=== PATIENT | male | born 1955 | race Caucasian/White ===

== ENCOUNTER 2024-09-15 22:27 | Emergency (ER) | payer OTHER, MEDICAID, SELFPAY ==
[2024-09-15 22:33] VITALS: BP 124/65; PULSE 61; RESP 18; TEMP 36.7; O2SAT 97; BMI 25.0
--- NOTE | 2024-09-15 22:42 | PD.EDRME ---
Rapid Medical Screening Exam RME Arrival date/time: 09/15/24 22:27 Time Seen by Provider: 09/15/24 22:41 Vital signs: Vital Signs Temperature 98.1 F 09/15/24 22:33 Pulse Rate 61 09/15/24 22:33 Respiratory Rate 18 09/15/24 22:33 Blood Pressure 124/65 09/15/24 22:33 Pulse Oximetry (%) 97 09/15/24 22:33 Oxygen Delivery Method Room Air 09/15/24 22:33 Vital signs reviewed by provider: Yes RME Narrative: 68yo male with pmhx DM, HTN, aFib BIBA from [facility] presents to the ED for a chief complaint of bilateral eye pain x 2 days. Patient states his pain progressively gets worse throughout the day. Per EMS, patient has been taking Tylenol and Tramadol without any alleviation of symptoms, so he came in for evaluation. Patient reports associated blurry vision.
[2024-09-15 22:43] VITALS: PULSE 82; RESP 18; O2SAT 98
--- NOTE | 2024-09-15 22:43 | XR_ITS ---
Examination: CT brain head without contrast. 2-D sagittal coronal reconstructions Date and time of exam:September 15, 2024 11:19 PM Indications: Head pain eye pain several months worse the last couple days CTDI: vol (mGy):56.8 DLP: (mGycm):1141 Technique: Multiple CT axial sections of the brain have been obtained, 5 mm slice thickness. Contrast has not been administered. 2-D sagittal, coronal reconstructions have been obtained Low dose protocols were performed. One or more of the following dose reduction techniques were used; automated exposure control, adjustment of the mA and/or KV according to patient size, use of iterative reconstruction technique. Findings: No significant ventricular enlargement. 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 No mass effect or midline shift Basal cisterns are not remarkable. Fourth ventricle is midline. Cranial vault intact. Mild chronic ethmoid sinusitis Impression: Negative for acute hemorrhage, mass effect or midline shift If symptoms persist, consider brain MRI follow-up
[2024-09-15 23:57] LABS: Basophils % (Auto) 0 % (0-2.5); Eosinophils # (Auto) 0.1 Thou/mm3 (0.0-0.5); Eosinophils % (Auto) 1 % (0-10); Hematocrit 36.7 % (41.0-53.0); Hemoglobin 12.5 g/dL (13.5-16.0); Immature Granulocytes % (Auto) 0 % (0-0); Immature Granulocytes Auto 0.01 Thou/mm3 (0.00-0.00); Lymphocytes # (Auto) 1.5 Thou/mm3 (1.0-4.8); Lymphocytes % (Auto) 26 % (10-50); Mean Corpuscular HGB Conc 34.1 g/dl (31.0-37.0); Mean Corpuscular Hemoglobin 29.3 pg (25.0-35.0); Mean Corpuscular Volume 86 fL (80-100); Monocytes # (Auto) 0.4 Thou/mm3 (0.0-0.8); Monocytes % (Auto) 7 % (0-12); Neutrophils # (Auto) 3.7 Thou/mm3 (1.8-7.7); Neutrophils % (Auto) 66 % (37-80); Nucleated Red Blood Cell % 0 /100 WBC (0); Platelet Count 117 Thou/mm3 (140-440); RDW Standard Deviation 42.9 fL (35.1-43.9); Red Blood Count 4.27 Miln/mm3 (4.50-5.90); White Blood Count 5.7 Thou/mm3 (3.8-10.6)
[2024-09-16 00:12] LABS: Sed Rate (ESR) 8 mm/hr (0-20)
[2024-09-16 00:34] LABS: Alanine Aminotransferase 20 U/L (10-49); Albumin, Serum 4.4 gm/dL (3.4-4.8); Albumin/Globulin Ratio 2.3 (1.2-2.2); Alkaline Phosphatase 85 U/L (46-116); Anion Gap 7 (7-16); Aspartate Amino Transferase 16 U/L (0-34); BUN/Creatinine Ratio 20 Ratio (12-20); Blood Urea Nitrogen 20 mg/dL (9-23); C-Reactive Protein < 0.4 mg/dL (0.0-0.9); Calcium 9.5 mg/dL (8.3-10.6); Calcium (Corrected) 9.5 mg/dL (8.5-10.1); Carbon Dioxide 29.5 mMol/L (20.0-31.0); Chloride 107 mMol/L (98-107); Estimated Creatinine Clearance 76.5 mL/min (>60); Globulin 1.9 gm/dL (2.3-3.5); Glucose 203 mg/dL (74-106); Osmolality,Calculated 293 (275-295); Potassium 3.7 mMol/L (3.4-5.1); Sodium 143 mMol/L (136-145); Total Protein 6.3 gm/dL (5.7-8.2); eGFR > 60 See Note
[2024-09-16 04:17] VITALS: BP 142/63; PULSE 69; RESP 16; O2SAT 96
--- NOTE | 2024-09-16 04:27 | PD.EDADULT ---
ED General RME/HPI General Chief complaint: Eye Problems Stated complaint: EYE PAIN Time Seen by Provider: 09/15/24 22:41 Arrival date/time: 09/15/24 22:27 Limitations: no limitations RME / HPI RME / HPI narrative: Dr. Darden's Main ED Evaluation: 68yo male with pmhx DM, HTN, aFib BIBA from [facility] presents to the ED for a chief complaint of bilateral eye pain that radiates down his cheeks x 2 days. Patient states his eye pain has been going on for the last 2 months, but has progressively gotten worse throughout the day. Per EMS, patient has been taking Tylenol and Tramadol without any alleviation of symptoms, so he came in for evaluation. Patient reports associated blurry vision. He denies any dizziness, lightheadedness or any other associated symptoms. Patient notes he has tried a few different types of prescription eye drops without any alleviation of symptoms. Patient is nearsighted and wears glasses. He has been dilated and cleared by optomology for diabetic-related changes. Related Data Previous Rx's ?Medication ?Instructions ?Recorded ketorolac 0.5 % eye drops 1 drp ophthalmic (eye) QID 2 weeks 09/16/24 #10 mL naphazoline 0.025 %-pheniramine 1 drp ophthalmic (eye) QID PRN eye 09/16/24 0.3 % eye drops (Naphcon-A) irritation #15 mL Allergies Allergy/AdvReac Type Severity Reaction Status Date / Time Iodinated Contrast Media Allergy Verified 04/10/23 13:59 morphine Allergy Verified 04/10/23 13:59 nifedipine Allergy Verified 04/10/23 13:59 Review of Systems Review of Systems Systems Reviewed: All systems reviewed, normal except as documented Past Medical History Past Medical History CARDIAC: Positive Hypertension; Negative Congestive Heart Failure RESPIRATORY: Negative Chronic Obstructive Pulmonary Disease (COPD) GENITOURINARY: Negative Renal Disease ENDOCRINE: Positive Diabetes Mellitus Type 2; Negative Diabetes Mellitus Type 1 Social History SMOKING STATUS: Never smoker ED Exam Narrative Physical exam: Eye: Visual acuity: Right eye 20/50, Left eye 20/40, and both 20/40. Peripheral olmedo intact. Lids intact without laceration, but small debris is noted to the eyelashes bilaterally. Lacrimal system without edema. No proptosis. No consensual photophobia. Extraocular movements intact and pupils equally round and reactive to light. No conjunctival icterus but with diffuse injection. No subconjunctival hemorrhage. No discharge. No hyphema. No corneal abrasions. No Sidel sign. General Limitations: Present no limitations General appearance: Present alert and in no apparent distress Head Head exam: Present atraumatic and other (scaly dandruff on the top of his skull) Eye Eye exam: Present PERRL, EOMI, conjunctival injection and other (constant eyelash irritation, burning eyelids, persistent itchy eyes) ENT ENT exam: Present normal exam, normal oropharynx and mucous membranes moist Neck Neck exam: Present normal inspection, full ROM and trachea midline Chest Chest inspection: Present normal inspection and symmetric chest wall rise Respiratory Respiratory exam: Present normal lung sounds bilaterally Cardiovascular Cardiovascular exam: Present regular rate, normal rhythm and normal heart sounds Abdominal Exam Abdominal exam: Present soft and normal bowel sounds Extremities Exam Extremities exam: Present normal inspection and full ROM Back Exam Back exam: Present normal inspection and full ROM Neurological Exam Neurological exam: Present alert, oriented X3 and CN II-XII intact Psychiatric Psychiatric exam: Present normal affect and normal mood Skin Skin exam: Present warm, dry, intact and normal color Course Quality Measures none Orders Category Date Time Status IV [Insert IV] STAT Care 09/15/24 22:[address] head/brain wo con Stat Exams 09/15/24 22:43 Completed CBC Stat Lab 09/15/24 23:03 Completed CMP [Comprehensive Metabolic Panel] Stat Lab 09/15/24 23:03 Completed CRP [C-Reactive Protein] Stat Lab 09/15/24 23:03 Completed ESR [Sed Rate (ESR)] Stat Lab 09/15/24 23:03 Completed Fluorescein Sodium [Zwzni-N-Graqm] Med 09/16/24 04:57 Discontinued 1 mg BOTH EYES X1 ONE Ketorolac Op [place]il[place] 0.5% [Acular Op Adilene 0.5%] Med 09/16/24 05:28 Discontinued 1 drop BOTH EYES X1 ONE lorataDINE [Claritin] Med 09/16/24 05:38 Discontinued 10 mg PO X1 ONE Vital Signs Vital signs: Vital Signs Temperature 98.1 F 09/15/24 22:33 Pulse Rate 61 09/15/24 22:33 Respiratory Rate 18 09/15/24 22:33 Blood Pressure 124/65 09/15/24 22:33 Pulse Oximetry (%) 97 09/15/24 22:33 Oxygen Delivery Method Room Air 09/15/24 22:33 Pulse ox is 97% on room air, which is normal according to my interpretation. [facility] Patient data External records reviewed:: [facility] previous records (Per chart review, patient has no relevant previous ED visits or admissions to this facility.) Clinical information provided by:: patient Social determinants that could affect healthcare access:: none Patient has the following chronic illnesses:: HTN, DM How is presenting disease/condition affected by chronic disease/condition?: uneffected by Evaluation data The following diagnostics were reviewed and interpreted by me:: lab results and radiology exam(s) Lab and/or radiology exams considered but not ordered:: none Interpretation Summary: CBC is normal, Glucose is elevated at 203, CRP is normal, Sed Rate is normal, UA shows 1+ protein and 2+ glucose, according to my interpretation. ---- I have personally reviewed the radiology data and agree with the radiologist's interpretation below: [facility] Report Signed Patient: MONY GARCIA [facility] Record#: [id number] Birthdate: 1955 Age/Sex: 68 / M Location: [facility] Attending Dr: Ordering Physician: Nilsa Freitas MD Date of Service: 09/15/24 Procedure(s): CT head/brain wo con Accession Number(s): [id number] cc: Rudy Vargas MD; Nilsa Freitas MD~ Examination: CT brain head without contrast. 2-D sagittal coronal reconstructions Date and time of exam:September 15, 2024 11:19 PM Indications: Head pain eye pain several months worse the last couple days CTDI: vol (mGy):56.8 DLP: (mGycm):1141 Technique: Multiple CT axial sections of the brain have been obtained, 5 mm slice thickness. Contrast has not been administered. 2-D sagittal, coronal reconstructions have been obtained Low dose protocols were performed. One or more of the following dose reduction techniques were used; automated exposure control, adjustment of the mA and/or KV according to patient size, use of iterative reconstruction technique. Findings: No significant ventricular enlargement. 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 No mass effect or midline shift Basal cisterns are not remarkable. Fourth ventricle is midline. Cranial vault intact. Mild chronic ethmoid sinusitis Impression: Negative for acute hemorrhage, mass effect or midline shift If symptoms persist, consider brain MRI follow-up Dictated By: Rudy Vargas MD Signed By: <Electronically signed by Rudy Vargas MD in OV> 09/15/24 7059 Medications Medications considered but not ordered:: none Medication administrations:: Medication Administration History Discontinued Medications Fluorescein Sodium (Fluorescein Sod 1 Mg Strp) 1 mg BOTH EYES X1 ONE Stop: 09/16/24 04:58 Last Admin: 09/16/24 05:13 Dose: 1 mg Documented By: RH Ketorolac Tromethamine (Ketorolac Op Adilene 0.5% 5 Ml Btl) 1 drop BOTH EYES X1 ONE Stop: 09/16/24 05:29 Last Admin: 09/16/24 05:37 Dose: Not Given Documented By: RH Non-Admin Reason: Medication Not Available Loratadine (Loratadine 10 Mg Tablet) 10 mg PO X1 ONE Stop: 09/16/24 05:39 Last Admin: 09/16/24 06:01 Dose: 10 mg Documented By: RH see above, if any Consultations Consultation(s) initiated? (list below): No Diagnosis Differential Diagnosis ED Complaint MDM: allergic conjunctivitis, keratoconjunctivitis, glaucoma, foreign body Most likely diagnosis given after review of the tests above:: Other DDx: brain tumor Final Dx: see below Admission Indicated Admission indicated?: not indicated Explain why admission is indicated or not indicated:: Admission criteria not met. Admission Request Was there a request for admission?: No Disposition Plan Disposition Plan: Discharge Discharge Attestation Discharge Attestation: The patient and all family members were given an opportunity to ask questions and understood the discharge instructions. Discharge instructions specifically effects, indications for sooner follow up or return to the emergency department, and the expected course of current diagnosis. Patient condition: Stable Medical Decision Making Differential Diagnosis Differential Diagnosis: allergic conjunctivitis, keratoconjunctivitis, glaucoma, foreign body Lab Data 09/15/24 23:03 09/15/24 23:03 Labs: Lab Results 09/15/24 Range/Units 23:03 WBC 5.7 (3.8-10.6) Thou/mm3 RBC 4.27 L (4.50-5.90) Miln/mm3 Hgb 12.5 L (13.5-16.0) g/dL Hct 36.7 L (41.0-53.0) % MCV 86 (80-100) fL MCH 29.3 (25.0-35.0) pg MCHC 34.1 (31.0-37.0) g/dl RDW Std Deviation 42.9 (35.1-43.9) fL Plt Count 117 L (140-440) Thou/mm3 Neut % (Auto) 66 (37-80) % Lymph % (Auto) 26 (10-50) % [place] % (Auto) 7 (0-12) % Eos % (Auto) 1 (0-10) % Baso % (Auto) 0 (0-2.5) % Neut # (Auto) 3.7 (1.8-7.7) Thou/mm3 Lymph # (Auto) 1.5 (1.0-4.8) Thou/mm3 [place] # (Auto) 0.4 (0.0-0.8) Thou/mm3 Eos # (Auto) 0.1 (0.0-0.5) Thou/mm3 Baso # (Auto) 0.0 (0.0-0.2) Thou/mm3 Immature Gran # (Auto) 0.01 H (0.00-0.00) Thou/mm3 Absolute Nucleated RBC 0.00 (0.00-0.00) Thou/mm3 Immature Gran % 0 (0-0) % Nucleated RBC % 0 (0) /100 WBC ESR 8 (0-20) mm/hr Sodium 143 (136-145) mMol/L Potassium 3.7 (3.4-5.1) mMol/L Chloride 107 (98-107) mMol/L Carbon Dioxide 29.5 (20.0-31.0) mMol/L Anion Gap 7 (7-16) BUN 20 (9-23) mg/dL Creatinine 1.0 (0.6-1.3) mg/dL Estim Creat Clear Calc 76.5 (>60) mL/min eGFR > 60 (60 - ) See Note BUN/Creatinine Ratio 20 (12-20) Ratio Glucose 203 H (74-106) mg/dL Calculated Osmolality 293 (275-295) Calcium 9.5 (8.3-10.6) mg/dL Corrected Calcium 9.5 (8.5-10.1) mg/dL Total Bilirubin 1.0 (0.3-1.2) mg/dL AST 16 (0-34) U/L ALT 20 (10-49) U/L Alkaline Phosphatase 85 (46-116) U/L C-Reactive Prot, Quant < 0.4 (0.0-0.9) mg/dL Total Protein 6.3 (5.7-8.2) gm/dL Albumin 4.4 (3.4-4.8) gm/dL Globulin 1.9 L (2.3-3.5) gm/dL Albumin/Globulin Ratio 2.3 H (1.2-2.2) Discharge Plan Plan Patient Disposition: HOME (Self Care) Patient condition on transfer: Stable Prescriptions/Referrals Prescriptions/Med Rec: New ketorolac 0.5 % drops 1 drp ophthalmic (eye) QID 14 Days Qty: 10 1RF Naphcon-A 0.025-0.3 % drops 1 drp ophthalmic (eye) QID PRN (Reason: eye irritation) Qty: 15 0RF Referrals: Ally Oreilly MD [Primary Care Provider] - In 1 week Problem List Clinical Impression: Dry eye syndrome Patient/Caregiver Discharge Instructions Education Materials: Treating Dry Eyes Additional Instructions: Please do not rub their eyes, because rubbing can cause mechanical mast cell degranulation and worsening of symptoms. ?Cool compresses can help reduce eyelid swelling ?Frequent use of refrigerated artificial tears throughout the day can also help to dilute and remove allergens ? Use head and shoulders shampoo to help with the dandruff. It is likely falling onto your eyelids. Return to the emergency department if you have any change in vision, worsening pain, or any other concerns. Print Language: Hungarian Stand Alone Forms: [employer]ra Award Info., Patient Portal Info Letter
[2024-09-16] MEDS: FLUORESCEIN SOD 1 MG STRP BOTH EYES (05:13)
[2024-09-16 05:30] VITALS: BP 138/74; PULSE 68; RESP 16; O2SAT 95
[2024-09-16] MEDS: lorataDINE 10 MG TABLET PO (06:01)
== END 2024-09-16 06:30 | disposition home or self-care (01) ==
PROVIDERS: Emergency Provider Emergency Medicine; PCP Hospitalist
DX: H04.123 Dry eye syndrome of bilateral lacrimal glands (principal)
CPT/HCPCS: 36415; 70450; 80053; 85025; 85652; 86140; 99284; A9270

== ENCOUNTER 2025-09-18 11:40 | Emergency (ER) | payer OTHER, MEDICAID, SELFPAY ==
--- NOTE | 2025-09-18 11:44 | EKG_ITS ---
[facility] (Former[facility]) Test Date: 2025-09-18 Pat Name: MONY GARCIA Department: Room: - Gender: Male [employer]: : 1955 Requested By: Stevenson Haile Order Number: [id number] Reading MD: Stevenson Haile Measurements Intervals [place] Rate: 59 P: 71 ID: [id number] QRS: 64 QRSD: 117 T: 64 QT: 387 QTc: 383 Interpretive Statements SINUS BRADYCARDIA WITH OCCASIONAL VENTRICULAR PREMATURE COMPLEXES MODERATE INTRAVENTRICULAR CONDUCTION DELAY [110+ ms QRS DURATION] NONSPECIFIC T-WAVE ABNORMALITY No previous ECG available for comparison /store/S0/[id number]/ecg/[id number].pdf
--- NOTE | 2025-09-18 11:45 | XR_ITS ---
AP portable upright chest film from 09/18/2025 at 12:16 p.m. CLINICAL INDICATION: Shortness of breath today FINDINGS: There is mild dilatation of the cardiac shadow but this is related to a suboptimal inspiration by the patient. The actual heart size is felt to be probably normal, no lymphadenopathy or abnormalities are seen in the hilar regions. Considering the suboptimal inspiration, I believe that both lungs are clear normal and there is no pleural fluid. There is very mild prominence of the pulmonary vascularity in the right upper lung zone, my feeling it is that this is almost certainly related to the suboptimal inspiration, but if there are any abnormal findings on pulmonary auscultation over the right upper lobe, then a chest CT might be of further value The bony thorax appears unremarkable. There are surgical clips seen in the gallbladder fossa in the right upper abdominal quadrant. IMPRESSION: 1. Suboptimal inspiration with high position of the diaphragm. 2. There is exceedingly minimal possible prominence of the pulmonary vascularity in the upper half of the right lung. There also is a suggestion of a few minimally prominent Melo B lines along the lateral margin of the right upper lobe. Careful clinical evaluation of the right upper lobe is recommended. A chest CT would afford much better visualization of this area if any abnormalities are heard on pulmonary auscultation. In all other respects both lungs and pleural space are clear normal.
[2025-09-18 12:02] VITALS: BP 151/63; PULSE 60; RESP 15; TEMP 35.9; O2SAT 95
--- NOTE | 2025-09-18 12:05 | EDNOTE_ITS ---
ED General RME/HPI General Chief complaint: Altered Mental Status Stated complaint: AMS Time Seen by Provider: 09/18/25 11:43 Arrival date/time: 09/18/25 11:40 Related Data Previous Rx's ?Medication ?Instructions ?Recorded ketorolac 0.5 % eye drops 1 drp ophthalmic (eye) QID 2 weeks 09/16/24 #10 mL naphazoline 0.025 %-pheniramine 1 drp ophthalmic (eye) QID PRN eye 09/16/24 0.3 % eye drops (Naphcon-A) irritation #15 mL Allergies Allergy/AdvReac Type Severity Reaction Status Date / Time Iodinated Contrast Media Allergy Verified 04/10/23 13:59 morphine Allergy Verified 04/10/23 13:59 nifedipine Allergy Verified 04/10/23 13:59 ED Exam Narrative Physical exam: Physical Exam: GENERAL: Awake, answering questions appropriately, appears stated age, somnolence and falls asleep in rapid succession HEENT: NC/AT. Moist mucosa. PERRLA/EOMI. CARDIO: Bradycardic but regular rhythm, no obvious murmurs, no JVD. PULM: No coughing or visible SOB. Lungs CTA B/L. GI: Abdomen soft, NT/ND, +BS. SKIN/MSK/EXT: No wounds/discoloration/rashes/edema/amputations. +Pedal pulses present B/L. NEURO: Oriented x3, Moves extremities x4, no focal neurologic deficits noted, cranial nerves II to XII grossly intact, [id number] normal, no pronator drift noted, rapid alternating movements intact, muscle strength 4 out of 5 in both upper and lower extremities without any asymmetry noted. Course Quality Measures none Orders Category Date Time Status Bedside Blood Glucose NOW Care 09/18/25 11:51 Active EKG (ED ONLY) *Do not use* NOW Care 09/18/25 11:44 Completed Insert IV NOW Care 09/18/25 11:44 Active CXRP [XR chest 1V portable] Stat Exams 09/18/25 11:45 Completed EKG (ED Only) Stat Exams 09/18/25 11:44 Draft US liver Stat Exams 09/18/25 12:54 Completed BNP [B-Type Natriuretic Peptide] Stat Lab 09/18/25 12:10 Completed CBC Stat Lab 09/18/25 12:10 Completed CMP [Comprehensive Metabolic Panel] Stat Lab 09/18/25 12:10 Completed Free T4 (Free Thyroxine) Stat Lab 09/18/25 12:10 Completed Lactate (Lactic Acid) Stat Lab 09/18/25 12:10 Completed Mag [Magnesium] Stat Lab 09/18/25 12:10 Completed TSH [Thyroid Stimulating Hormone] Stat Lab 09/18/25 12:10 Completed Troponin I Stat Lab 09/18/25 12:10 Completed Ringers Lactated 1000 ml [Lactated Ringers] 1,000 ml Med 09/18/25 13:31 Active IV 200 mls/hr Oxygen Delivery NOW RT 09/18/25 11:45 Active Vital Signs Vital signs: Vital Signs Temperature 96.7 F L 09/18/25 12:02 Pulse Rate 60 09/18/25 12:02 Respiratory Rate 15 09/18/25 12:02 Blood Pressure 151/63 H 09/18/25 12:02 Pulse Oximetry (%) 95 09/18/25 12:02 Oxygen Delivery Method Room Air 09/18/25 12:02 Discharge Plan Plan Patient Disposition: HOME (Self Care) Discharge Disposition comment: Stop taking metoprolol succinate 100mg by mouth twice a day Follow-up with Dr. Joshua (cardiology) within 5 days and ask him to change your medications If your symptoms worsen or if you develop new or worsening dizziness, chest pain, shortness of breath or confusion - come back to the ED immediately. Patient condition on transfer: Stable Prescriptions/Referrals Prescriptions/Med Rec: Discontinued metoprolol succinate 100 mg tablet extended release 24 hr 100 mg PO BID No Action ketorolac 0.5 % drops 1 drp ophthalmic (eye) QID 14 Days Qty: 10 1RF Naphcon-A 0.025-0.3 % drops 1 drp ophthalmic (eye) QID PRN (Reason: eye irritation) Qty: 15 0RF Problem List Clinical Impression: Polypharmacy Patient/Caregiver Discharge Instructions Discharge Activity: resume usual activities Additional Instructions: Stop taking metoprolol succinate 100mg by mouth twice a day Follow-up with Dr. Joshua (cardiology) within 5 days and ask him to change your m edications If your symptoms worsen or if you develop new or worsening dizziness, chest pain, shortness of breath or confusion - come back to the ED immediately. Print Language: Bangladeshi Stand Alone Forms: Omayra Award Info., Patient Portal Info Letter MDM Narrative MDM hospital course (for use when minimal MDM required): HPI: 69-year-old male with past medical history of insomnia, hypertension, coronary artery disease status post stent placement, paroxysmal A-fib, type 2 diabetes on hospice presenting to the ED on 09/18 after being noted to be more somnolent than usual with a heart rate less than 40 per nursing staff at [facility]. EMS on route notes that the patient vitals are stable other than bradycardia at which point atropine 1 mg was given with improvement of the heart rate from low 40s to mid 60s. Patient states that has been at [facility] for about 2 years and does not have any family in the area. He is usually at his baseline able to talk without any concerns. Patient's strength and conditioning coach is Dr. Joshua in [place] who apparently started him on metoprolol succinate 100 mg twice a day because of his coronary artery disease. On examination please refer to the physical exam above; patient presented mildly hypertensive 151/63 heart rate fluctuating between 40s to 60s, respiratory rate of 15, mildly hypothermic with a core temp of 96.7 which has improved to 97.7, saturating 95 on room air. Laboratory findings included no leukocytosis, normocytic anemia likely secondary to anemia of chronic disease, CMP shows hyponatremia and hypochloremia, lactic acid of 1.1, total bilirubin 1.5, AST of 38, troponin 0.035, BNP 171. Chest x-ray showed some pulmonary vascularity in the right upper lung, EKG showed sinus bradycardia with occasional PVCs and liver ultrasound was largely unremarkable other than some mild MASLD, bile duct was of normal size without any stones visualized. #Polypharmacy #Beta-shahla induced bradycardia As noted in HPI, patient's apparently received 100 mg of metoprolol succinate last evening and received 100 mg metoprolol succinate this morning Patient was given atropine 1 mg x 1 with improvement in heart rates in the 60s; patient is sleeping and heart rate is 47 but when awoken patient's heart rate spikes up to mid 50s. Patient's neurologic exam is largely unremarkable and he is able to answer all questions appropriately Plan: Will stop metoprolol succinate on discharge Advised patient to follow-up with Dr. Joshua his strength and conditioning coach within 5 days for medication reconciliation Patient seen and assessed with attending Dr. Antonio Haile, DO PGY-2 Internal Medicine - [facility] Medication Administration(s) Medication Administration History Lactated Ringer's (Lactated Ringers) 1,000 mls @ 200 mls/hr IV .Q5H ONE Stop: 09/18/25 18:30 Last Admin: 09/18/25 13:54 Dose: 200 mls/hr Documented By: ARF
[2025-09-18 12:25] LABS: Lactate (Lactic Acid) 1.1 mMol/L (0.4-2.0)
[2025-09-18 12:30] LABS: Basophils # (Auto) 0.0 Thou/mm3 (0.0-0.2); Basophils % (Auto) 0 % (0-2.5); Eosinophils # (Auto) 0.1 Thou/mm3 (0.0-0.5); Eosinophils % (Auto) 2 % (0-10); Hematocrit 33.6 % (41.0-53.0); Hemoglobin 10.8 g/dL (13.5-16.0); Immature Granulocytes Auto 0.01 Thou/mm3 (0.00-0.00); Lymphocytes # (Auto) 0.8 Thou/mm3 (1.0-4.8); Lymphocytes % (Auto) 18 % (10-50); Mean Corpuscular HGB Conc 32.1 g/dl (31.0-37.0); Mean Corpuscular Hemoglobin 27.6 pg (25.0-35.0); Mean Corpuscular Volume 86 fL (80-100); Monocytes # (Auto) 0.3 Thou/mm3 (0.0-0.8); Monocytes % (Auto) 7 % (0-12); Neutrophils # (Auto) 3.3 Thou/mm3 (1.8-7.7); Neutrophils % (Auto) 73 % (37-80); Nucleated Red Blood Cell # 0.00 Thou/mm3 (0.00-0.00); Nucleated Red Blood Cell % 0 /100 WBC (0); Platelet Count 97 Thou/mm3 (140-440); RDW Standard Deviation 45.2 fL (35.1-43.9); Red Blood Count 3.91 Miln/mm3 (4.50-5.90); White Blood Count 4.5 Thou/mm3 (3.8-10.6)
[2025-09-18 12:49] LABS: Alanine Aminotransferase 19 U/L (10-49); Albumin, Serum 3.8 gm/dL (3.4-4.8); Albumin/Globulin Ratio 1.7 (1.2-2.2); Alkaline Phosphatase 77 U/L (46-116); Anion Gap 11 (7-16); Aspartate Amino Transferase 38 U/L (0-34); BUN/Creatinine Ratio 30 Ratio (12-20); Bilirubin,Total 1.5 mg/dL (0.3-1.2); Blood Urea Nitrogen 30 mg/dL (9-23); Calcium 8.7 mg/dL (8.3-10.6); Calcium (Corrected) 8.9 mg/dL (8.5-10.1); Carbon Dioxide 26.3 mMol/L (20.0-31.0); Chloride 110 mMol/L (98-107); Creatinine (Component) 1.0 mg/dL (0.6-1.3); Globulin 2.2 gm/dL (2.3-3.5); Glucose 294 mg/dL (74-106); Magnesium 1.9 mg/dL (1.6-2.6); Osmolality,Calculated 309 (275-295); Potassium 3.7 mMol/L (3.4-5.1); Sodium 147 mMol/L (136-145); Thyroid Stimulating Hormone 0.50 uIU/mL (0.55-4.78); Total Protein 6.0 gm/dL (5.7-8.2); Troponin I 0.035 ng/mL (0.0-0.045); eGFR > 60 See Note
--- NOTE | 2025-09-18 12:54 | XR_ITS ---
Examination: Abdomen sonogram, Limited Date and time of exam: 09/18/2025 at 1:19 p.m. Clinical indications: Abnormal elevated bilirubin Technique: Real-time ponce scale transabdominal sonographic images of the upper abdomen obtained. Findings: The size of the liver is felt to be normal the intrahepatic bile ducts appear normal maximum diameter of the common bile duct 0.46 cm the size and the directional color flow in the portal vein is normal, the diameter of the portal vein is 0.84 cm. Patient appears to be status post cholecystectomy no focal lesions are seen anywhere in the liver There is diffuse increased echogenicity noted uniformly throughout both lobes of the liver consistent with fatty infiltration no ascites is seen. No abnormalities are seen in the region of the head or body of the pancreas. Pancreas is not actually visualized very well. I went back to the ultrasound department to observe real-time imaging of a 15 cm echogenic rounded area of density seen on sagittal images, and with the technologist rotating the transducer and different imaging planes, this proves to be represent the stomach. No abnormal mass lesion is felt to be present here. Visualization of the upper half of the right kidney does not show any abnormalities. IMPRESSION: 1. The liver is normal in size, no focal lesions are seen anywhere within the liver. 2. There is diffuse increased echogenicity indicative of diffuse prominent fatty infiltration of the liver #3. The size and appearance of the common bile duct and portal vein are normal and there is normal directional color flow. 3. The gallbladder is not visualized, patient is felt to be status post cholecystectomy
[2025-09-18 13:22] VITALS: BP 110/54; PULSE 50; RESP 15; TEMP 36.1; O2SAT 90; O2SAT 95
[2025-09-18 13:24] LABS: Free T4 (Free Thyroxine) 0.81 ng/dL (0.89-1.76)
[2025-09-18 13:25] LABS: B-Type Natriuretic Peptide 171 pg/mL (0-100)
[2025-09-18] MEDS: RINGERS LACTATED 1000 ML 1,000 ML 200 ML IV (13:54)
[2025-09-18 15:42] VITALS: BP 128/59; PULSE 49; RESP 17; TEMP 36.5; O2SAT 97
--- NOTE | 2025-09-18 18:54 | PC.NURSE ---
pt belongings were placed in locker #4
== END 2025-09-18 18:57 | disposition home or self-care (01) ==
DX: R41.82 Altered mental status, unspecified (principal); R06.02 Shortness of breath; R00.1 Bradycardia, unspecified; I10 Essential (primary) hypertension
CPT/HCPCS: 36415; 71045; 76705; 80053; 83605; 83735; 83880; 84439; 84443; 84484; 85025; 93005; 99283; J7120

== ENCOUNTER 2025-09-24 08:58 | Inpatient (IN) | payer MEDICARE, MEDICAID, SELFPAY ==
[2025-09-24] VITALS (49 sets, daily range): BP systolic 99–213; BP diastolic 46–99; PULSE 77–110; RESP 7–29; TEMP 38.4–40.5; O2SAT 85–108; BMI 29.8
--- NOTE | 2025-09-24 08:59 | PD.EDFEVER ---
ED Fever RME/HPI General Chief Complaint: Nausea/Vomiting/Diarrhea Stated Complaint: FEVER Time Seen by Provider: 09/24/25 10:16 Arrival date/time: 09/24/25 08:58 RME / HPI RME / HPI Narrative: DR. TATUM MAIN ED EVALUATION: 69 y/o male with Hx of HTN and Type II DM BIBA from [facility] presents to ED c/o fever and diarrhea x approximately 12 hours. Also reports increased weakness this morning. 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 Albuterol treatment administered en route due to BL rhonchi. Related Data Home Medications ?Medication ?Instructions ?Recorded ?Confirmed apixaban 5 mg tablet (Eliquis) 5 mg PO Q12H 09/24/25 09/24/25 aripiprazole 10 mg tablet 10 mg PO HS 09/24/25 09/24/25 atorvastatin 80 mg tablet 80 mg PO DAILY 09/24/25 09/24/25 baclofen 10 mg tablet 10 mg PO Q8H PRN muscle spasm 09/24/25 09/24/25 clopidogrel 75 mg tablet 75 mg PO DAILY 09/24/25 09/24/25 metoprolol succinate 100 mg 25 mg PO DAILY 09/24/25 09/24/25 tablet,extended release 24 hr Previous Rx's ?Medication ?Instructions ?Recorded ketorolac 0.5 % eye drops 1 drp ophthalmic (eye) QID 2 weeks 09/16/24 #10 mL naphazoline 0.025 %-pheniramine 1 drp ophthalmic (eye) QID PRN eye 09/16/24 0.3 % eye drops (Naphcon-A) irritation #15 mL Allergies Allergy/AdvReac Type Severity Reaction Status Date / Time Iodinated Contrast Media Allergy Verified 09/24/25 09:06 nifedipine Allergy Verified 09/24/25 09:06 Review of Systems Review of Systems ROS Unobtainable: unobtainable due to mental status Past Medical History Past Medical History CARDIAC: Positive Hypertension ENDOCRINE: Positive Diabetes Mellitus Type 2 Physical Exam Narrative Physical exam: GENERAL APPEARANCE: awake, well-developed, well-nourished, no acute distress VITALS: All vitals were reviewed and the pulse ox is 85% on room air, which is low according to my interpretation. HEENT: Normocephalic, atraumatic; pupils equal, round, reactive to light; EOMI; mucous membranes pink, moist; oropharynx clear NECK: Supple LUNGS: BL mild wheezes and rhonchi. HEART: Regular rate, regular rhythm; normal S1, S2; no murmurs ABDOMEN: Mildly distended; normal BS; soft, no tenderness, no guarding, no rebound; no masses, no organomegaly, no hernia BACK: no CVA tenderness EXTREMITIES: atraumatic; no edema NEUROLOGIC: awake; cranial nerves II-XII grossly intact; no focal sensory or motor deficits PSYCHIATRIC: appropriate mood and affect SKIN: warm, dry, mottled; no rashes ED Exam Narrative Physical exam: See above Course Course Course Narrative: Sepsis alert initiated. Orders made at this time are congruent with ED Adult Sepsis Order List. Re-evaluation is to be completed. Sepsis reassessment performed consisting of lab review, vitals, physical exam including auscultation of heart, lungs, and visual evaluation of capillary refills, mucosal membranes and extremities. Quality Measures Current suspected stage: sepsis Possible source: GI tract/intra-abdominal Blood cultures ordered: yes Antibiotic ordered: Yes Pertinent labs: 09/24/25 09:16 Lactic Acid 1.8 mMol/L (0.4-2.0) Procalcitonin 0.16 ng/ml (0.0-0.49) sepsis Orders Category Date Time Status Admit to Inpatient Status Routine Admission 09/24/25 13:17 Active Patient Condition Routine Admission 09/24/25 13:17 Ordered Bedside COVID-19 Antigen Test NOW Care 09/24/25 09:39 Active Bedside Influenza A&B Antigen Test NOW Care 09/24/25 09:39 Completed Bedside RSV Test NOW Care 09/24/25 09:39 Completed Bobbin Inspector NOW Care 09/24/25 09:06 Active Continuous Pulse Oximetry NOW Care 09/24/25 13:17 Completed EKG (ED ONLY) *Do not use* NOW Care 09/24/25 09:06 Completed Crane [Urinary Catheter] QS Care 09/24/25 09:32 Active Notify provider NEEDED Care 09/24/25 13:[address] abdomen pelvis wo con Stat Exams 09/24/25 10:[address] head/brain wo con Stat Exams 09/24/25 10:17 Completed EKG (ED Only) Stat Exams 09/24/25 09:06 Draft XR chest 1V portable Stat Exams 09/24/25 09:06 Completed B-Type Natriuretic Peptide Stat Lab 09/24/25 09:16 Completed Blood Culture (Lab) Stat Lab 09/24/25 09:16 Received CBC Stat Lab 09/24/25 09:16 Completed Comprehensive Metabolic Panel Stat Lab 09/24/25 09:16 Completed Drug Screen,Urine Stat Lab 09/24/25 09:34 Completed Free T4 (Free Thyroxine) Stat Lab 09/24/25 09:16 Completed Lactate (Lactic Acid) Stat Lab 09/24/25 09:16 Completed Lipase Stat Lab 09/24/25 09:16 Completed Magnesium Stat Lab 09/24/25 09:16 Completed Partial Thromboplastin Time Stat Lab 09/24/25 09:16 Completed Procalcitonin Stat Lab 09/24/25 09:16 Completed Prothrombin Time with INR Stat Lab 09/24/25 09:16 Completed Thyroid Stimulating Hormone Stat Lab 09/24/25 09:16 Completed Troponin I Stat Lab 09/24/25 09:16 Completed Urinalysis Stat Lab 09/24/25 09:34 Completed Urine Culture Stat Lab 09/24/25 09:34 Received Acetaminophen Ivpb [Ofirmev Inj] Med 09/24/25 09:18 Discontinued 1,000 mg in 100 ml IV X1 Albuterol/Ipratr Rt Adilene [Duoneb Rt Adilene] Med 09/24/25 09:13 Discontinued 3 ml INH X1 ONE Azithromycin Inj [Zithromax Inj] 500 mg Med 09/24/25 11:44 Discontinued Sodium Chloride 0.9% 250 ml [Ns] 250 ml IV X1 Sodium Chloride 0.9% 1000 ml [Ns] 1,000 ml Med 09/24/25 09:39 Discontinued IV 999 mls/hr cefTRIAXone/D5w 1gm IV premix [Rocephin/D5w 1gm IV Med 09/24/25 11:44 Discontinued premix] 1 gm in 50 ml IV X1 hydrALAZINE INJ [Apresoline Inj] Med 09/24/25 10:19 Discontinued 10 mg IVP X1 ONE Code Status Routine Oth 09/24/25 13:17 Ordered Oxygen Delivery PRN RT 09/24/25 13:17 Active Vital Signs Vital signs: Vital Signs Temperature 104.0 F H 09/24/25 09:05 Pulse Rate 108 H 09/24/25 09:05 Respiratory Rate 23 H 09/24/25 09:05 Blood Pressure 213/84 H 09/24/25 09:05 Pulse Oximetry (%) 85 L 09/24/25 09:05 Oxygen Delivery Method Room Air 09/24/25 09:05 Fever MDM Narrative MDM Narrative:: Scribe Attestation: IZulma, am scribing for and in the presence of Dr. Tatum. Provider Notation: Although this document has been carefully reviewed, there may still be some phonetic and other typographical errors. These errors are purely grammatical due to imperfections in the software program and should not be construed in any way to compromise the substance of the patient's medical care during this visit. Patient data External records reviewed:: [facility] previous records (Reviewed prior ED records from 09/16/24. Patient was seen for Dry eye syndrome.), EMS form and [facility] records Clinical information provided by:: EMS Social determinants that could affect healthcare access:: housing (SNF) Patient has the following chronic illnesses:: HTN, Type II DM How is presenting disease/condition affected by chronic disease/condition?: exacerbated by Evaluation data The following diagnostics were reviewed and interpreted by me:: lab results, radiology exam(s) and EKG tracing(s) (EKG manual reading, my interpretation: sinus rhythm, rate: 95 bpm, no ST elevation, no acute ischemic changes, interpreted as normal) Lab and/or radiology exams considered but not ordered:: None Interpretation Summary: RADIOLOGY Chest X-Ray: FINDINGS: Moderate enlargement cardiac contour Prominent vascular congestion Suspicious for early septal edema at the lung bases IMPRESSION: Early heart failure Head/Brain CT: Findings: No significant ventricular enlargement. Intra-axial or extra-axial hemorrhage density is not seen. No mass effect or midline shift Basal cisterns are not remarkable. Fourth ventricle is midline. Cranial vault intact. Moderate chronic ethmoid sinusitis Impression: Negative for acute hemorrhage, mass effect or midline shift Advise clinical correlation and follow-up accordingly Abdomen/Pelvis CT: Findings: Significant bibasilar pneumonia No visualized liver or splenic lesion Mild hepatosplenomegaly Absent gallbladder No common bile duct stones No definite pancreatic edema on this noncontrast study Perinephric stranding No renal or ureteral calculi, no hydronephrosis Heavy abdominal aortic calcification no aneurysmal dilatation Normal appendix No bowel obstruction 10 mm fat-containing umbilical hernia No diverticulitis Moderate prostatomegaly Urinary bladder wall thickening up to 12 mm Severe osteopenia with advanced degenerative disc disease L4-L5, L5-S1 IMPRESSION: Significant bibasilar pneumonia No common bile duct stones depicted No renal or ureteral calculi, no hydronephrosis Normal appendix No bowel obstruction or diverticulitis Moderate prostatomegaly Urinary bladder wall thickening, consider cystitis, early urinary tract outflow obstruction secondary to the patient's prostatomegaly Advanced degenerative disc disease L4-L5, L5-S1 Medications / Prescriptions Medications or Prescriptions considered but not ordered:: None Medication administrations:: Medication Administration History Acetaminophen (Acetaminophen 325 Mg Tablet) 650 mg PO Q6H PRN On Hold: 09/24/25 16:05 Comment: [facility] ACTIVE PRN Reason: Fever >100.5 Stop: 10/24/25 13:28 Apixaban (Apixaban 2.5 Mg Tablet) 5 mg PO BID [facility] Stop: 10/24/25 20:59 Atorvastatin Calcium (Atorvastatin Calcium 20 Mg Tablet) 80 mg PO HS [facility] Stop: 10/24/25 20:59 Clopidogrel Bisulfate (Clopidogrel Bisulfate 75 Mg Tablet) 75 mg PO QDAY [facility] Stop: 10/25/25 08:59 Dextrose (Dextrose 50%-Water Inj 50 Ml Syringe) 25 ml IV Q15MIN PRN PRN Reason: BG 50-70 responsive npo pt Stop: 10/24/25 14:55 Dextrose (Dextrose 50%-Water Inj 50 Ml Syringe) 50 ml IV Q15MIN PRN PRN Reason: BG <50 OR BG <70 & pt unresponsive Stop: 10/24/25 14:55 Glucagon (Glucagon Inj 1 Mg Vial) 1 mg IM Q15MIN PRN PRN Reason: BG <70, and no IV access Azithromycin 250 mg/ Sterile (Water 2.5 ml/ Sodium Chloride) 252.5 mls @ 252.5 mls/hr IV QDAY [facility] Stop: 10/02/25 08:59 Ceftriaxone Sodium/Dextrose (Rocephin/D5w 1gm Iv Premix) 1 gm in 50 mls @ 100 mls/hr IV QDAY [facility] Stop: 10/02/25 08:59 Acetaminophen (Ofirmev Inj) 1,000 mg in 100 mls @ 250 mls/hr IV Q6HR DEYANIRA Stop: 09/25/25 06:23 Last Infusion: 09/24/25 17:08 Dose: Infused Documented By: Admin: 09/24/25 16:43 Dose: 250 mls/hr Documented By: DO Insulin Degludec (Insulin Degludec 5 Unit/0.05 Ml (Per 5 Units)) 21 unit SC BID [facility] Stop: 10/24/25 20:59 Insulin Human Lispro (Insulin Lispro (Admelog) 1 Unit/0.01 Ml Unit) 0 unit SC AC [facility]; Protocol Stop: 10/24/25 16:59 Last Admin: 09/24/25 17:17 Dose: Not Given Documented By: DO Non-Admin Reason: Per Protocol Labetalol HCl (Labetalol Inj 5 Mg/Ml Vial 4 Ml) 10 mg IVP Q10MIN PRN PRN Reason: Hypertension Stop: 10/24/25 16:14 Last Admin: 09/24/25 16:45 Dose: 10 mg Documented By: DO Metoprolol Succinate (Metoprolol Succinate Xl 25 Mg Tabcr) 25 mg PO QDAY [facility] Stop: 10/25/25 08:59 Ondansetron HCl (Ondansetron Inj 2 Mg/Ml Inj 2 Ml) 4 mg IVP Q6H PRN; Protocol PRN Reason: NAUSEA OR VOMITING Stop: 10/24/25 13:28 Pantoprazole Sodium (Pantoprazole Inj 40 Mg Vial) 40 mg IVP BID [facility] Stop: 10/24/25 20:59 Discontinued Medications Albuterol/Ipratropium (Albuterol/Ipratropium (Duoneb) Rt Adilene 3 Ml Nebu) 3 ml INH X1 ONE Stop: 09/24/25 09:14 Last Admin: 09/24/25 09:49 Dose: 3 ml Documented By: LILY Enoxaparin Sodium (Enoxaparin Sod Inj 40 Mg/0.4 Ml Syringe) 40 mg SC QDAY DEYANIRA Stop: 10/09/25 08:59 Hydralazine HCl (Hydralazine Inj 20 Mg/Ml Vial) 10 mg IVP X1 ONE Stop: 09/24/25 10:20 Last Admin: 09/24/25 11:44 Dose: Not Given Documented By: DO Non-Admin Reason: Cancelled by Provider Acetaminophen (Ofirmev Inj) 1,000 mg in 100 mls @ 250 mls/hr IV X1 ONE Stop: 09/24/25 09:41 Last Infusion: 09/24/25 10:11 Dose: Infused Documented By: Admin: 09/24/25 09:40 Dose: 250 mls/hr Documented By: HARRIET Sodium Chloride (Ns) 1,000 mls @ 999 mls/hr IV .Q1H1M ONE Stop: 09/24/25 10:39 Last Infusion: 09/24/25 11:08 Dose: Infused Documented By: Admin: 09/24/25 10:07 Dose: 999 mls/hr Documented By: HARRIET Azithromycin 500 mg/ Sodium (Chloride) 250 mls @ 250 mls/hr IV X1 ONE Stop: 09/24/25 12:43 Last Infusion: 09/24/25 15:13 Dose: Infused Documented By: Admin: 09/24/25 14:13 Dose: 250 mls/hr Documented By: LJ Ceftriaxone Sodium/Dextrose (Rocephin/D5w 1gm Iv Premix) 1 gm in 50 mls @ 100 mls/hr IV X1 ONE Stop: 09/24/25 12:13 Last Infusion: 09/24/25 12:39 Dose: Infused Documented By: Admin: 09/24/25 12:09 Dose: 100 mls/hr Documented By: LJ Lactated Ringer's (Lactated Ringers) 1,000 mls @ 999 mls/hr IV .Q1H1M ONE Stop: 09/24/25 14:37 Last Infusion: 09/24/25 15:00 Dose: Infused Documented By: Admin: 09/24/25 14:12 Dose: 999 mls/hr Documented By: LJ Lactated Ringer's (Lactated Ringers) 1,000 mls @ 999 mls/hr IV .Q1H1M ONE Stop: 09/24/25 14:37 Last Infusion: 09/24/25 16:35 Dose: Infused Documented By: Admin: 09/24/25 15:24 Dose: 999 mls/hr Documented By: DO See above if any Consultations Consultation(s) initiated? (list below): Yes Consultation #1 (Physician, Specialty, Details): Discussed with Dr. Servin for admission. Reviewed the patient?s HPI, PMHx, lab and/or radiology results. Discussed treatment plan. Will consult an admission to the hospitalist. Time: 11:47 Diagnosis Fever Differential Diagnosis: fever of unknown origin, gastroenteritis, viral infection, sepsis and influenza Most likely diagnosis given after review of the tests above:: Pneumonia, Sepsis Admission Indicated Admission indicated?: indicated Explain why admission is indicated or not indicated:: Pneumonia, Sepsis Admission Request Was there a request for admission?: Yes Admission Attestation Admission request attestation: Discussed case with [] from Hospitalist service regarding admission. Discussed patients ED course, exam findings, labs, and radiology results. The Hospitalist [agrees,declines] to accept the patient for admission. Disposition Plan Disposition Plan: Admit Critical Care Time Critical Care Time Critical Care Time: Yes Total Critical Care Time (min.): 35 Attestation: The high probability of sudden, clinically significant deterioration in the patient?s condition required the highest level of my preparedness to intervene urgently. The services I provided to this patient were to treat and/or prevent clinically significant deterioration. Services included the following: chart data review, reviewing nursing notes and/or old charts, documentation time, solutions delivery consultant collaboration regarding findings and treatment options, medication orders and management, direct patient care, vital sign assessments and ordering, interpreting and reviewing diagnostic studies and lab tests. Aggregate critical care time includes only time during which I was engaged in work directly related to the patient?s care, as described above, whether at bedside or elsewhere in the Emergency Department. It did not include time spent performing other reported procedures or the services of residents, students, nurses or physician assistants. Discharge Plan Plan Patient Disposition: Admit Acute Care w/in Hospital Problem List Clinical Impression: Sepsis, Pneumonia
--- NOTE | 2025-09-24 09:06 | XR_ITS ---
Examination: AP chest single view TECHNIQUE: AP portable semiupright chest single view Date and time: September 24, 2025, 0928 hours, comparison September 18, 2025 INDICATIONS: Chest pain today FINDINGS: Moderate enlargement cardiac contour Prominent vascular congestion Suspicious for early septal edema at the lung bases IMPRESSION: Early heart failure
--- NOTE | 2025-09-24 09:06 | EKG_ITS ---
[facility] Test Date: 2025-09-24 Pat Name: MONY GARCIA Department: Room: - Gender: Male [employer] Intern: : 1955 Requested By: Martha Kwan Order Number: [id number] Reading MD: Martha Kwan Measurements Intervals Hope Rate: 95 P: 80 MA: 184 QRS: 27 QRSD: 85 T: 74 QT: 248 QTc: 312 Interpretive Statements SINUS RHYTHM NONSPECIFIC ST & T-WAVE ABNORMALITY Compared to ECG 09/18/2025 11:54:35 Sinus bradycardia no longer present Ventricular premature complex(es) no longer present Intraventricular conduction delay no longer present T-wave abnormality still present /store/S0/[id number]/ecg/[id number].pdf
[2025-09-24 09:23] LABS: Lactate (Lactic Acid) 1.8 mMol/L (0.4-2.0)
[2025-09-24 09:31] LABS: Basophils # (Auto) 0.0 Thou/mm3 (0.0-0.2); Basophils % (Auto) 0 % (0-2.5); Eosinophils # (Auto) 0.1 Thou/mm3 (0.0-0.5); Eosinophils % (Auto) 3 % (0-10); Hematocrit 39.1 % (41.0-53.0); Hemoglobin 12.4 g/dL (13.5-16.0); Immature Granulocytes Auto 0.01 Thou/mm3 (0.00-0.00); Lymphocytes # (Auto) 1.1 Thou/mm3 (1.0-4.8); Lymphocytes % (Auto) 19 % (10-50); Mean Corpuscular HGB Conc 31.7 g/dl (31.0-37.0); Mean Corpuscular Hemoglobin 26.9 pg (25.0-35.0); Mean Corpuscular Volume 85 fL (80-100); Monocytes # (Auto) 0.3 Thou/mm3 (0.0-0.8); Monocytes % (Auto) 5 % (0-12); Neutrophils # (Auto) 4.2 Thou/mm3 (1.8-7.7); Neutrophils % (Auto) 73 % (37-80); Nucleated Red Blood Cell # 0.00 Thou/mm3 (0.00-0.00); Nucleated Red Blood Cell % 0 /100 WBC (0); Platelet Count 103 Thou/mm3 (140-440); RDW Standard Deviation 43.9 fL (35.1-43.9); Red Blood Count 4.61 Miln/mm3 (4.50-5.90); White Blood Count 5.7 Thou/mm3 (3.8-10.6)
[2025-09-24] MEDS: ACETAMINOPHEN IVPB 1,000 MG/100 ML VIAL 250 MG IV ×4 (09:40→23:32)
[2025-09-24 09:46] LABS: INR 1.1 (0.9-1.3); Partial Thromboplastin Time 27.6 Seconds (22.0-36.0); Prothrombin Time 11.9 Seconds (9.0-12.2)
[2025-09-24 09:49] LABS: Collection Type, Urine Clean Catch; Squamous Epithelial Cell,Urine 0 /hpf (0-5)
[2025-09-24] MEDS: ALBUTEROL/IPRATROPIUM (Duoneb) RT SOL 3 ML NEBU INH (09:49)
--- NOTE | 2025-09-24 09:57 | PC.NURSE ---
Patient to er via ems from [facility], with c/o fever, diarrhea, lethargic not answering questions on arrival, patient skin hot, mottled, opening eyes intermittently, however, not answering questions or following commands, 02 sats 85% on RA, Dr. Tatum called to bedside, new orders received.
--- NOTE | 2025-09-24 09:58 | PC.NURSE ---
RT at bedside giving neb, tx
[2025-09-24 09:59] LABS: Alanine Aminotransferase 26 U/L (10-49); Albumin, Serum 4.7 gm/dL (3.4-4.8); Albumin/Globulin Ratio 1.6 (1.2-2.2); Alkaline Phosphatase 83 U/L (46-116); Anion Gap 12 (7-16); Aspartate Amino Transferase 81 U/L (0-34); BUN/Creatinine Ratio 14 Ratio (12-20); Bilirubin,Total 2.4 mg/dL (0.3-1.2); Blood Urea Nitrogen 14 mg/dL (9-23); Calcium 9.6 mg/dL (8.3-10.6); Calcium (Corrected) 9.6 mg/dL (8.5-10.1); Carbon Dioxide 27.9 mMol/L (20.0-31.0); Chloride 104 mMol/L (98-107); Creatinine (Component) 1.0 mg/dL (0.6-1.3); Estimated Creatinine Clearance 84.1 mL/min (>60); Globulin 3.0 gm/dL (2.3-3.5); Glucose 87 mg/dL (74-106); Lipase 25 U/L (12-53); Magnesium 1.7 mg/dL (1.6-2.6); Osmolality,Calculated 286 (275-295); Potassium 3.3 mMol/L (3.4-5.1); Procalcitonin 0.16 ng/ml (0.0-0.49); Sodium 144 mMol/L (136-145); Total Protein 7.7 gm/dL (5.7-8.2); Troponin I 0.044 ng/mL (0.0-0.045); eGFR > 60 See Note
[2025-09-24 10:02] LABS: B-Type Natriuretic Peptide 141 pg/mL (0-100)
[2025-09-24] MEDS: SODIUM CHLORIDE 0.9% 1000 ML 1,000 ML 999 ML IV (10:07)
--- NOTE | 2025-09-24 10:17 | XR_ITS ---
Examination: CT brain head without contrast. 2-D sagittal coronal reconstructions Date and time of exam: September 24, 2025, 1117 hours, comparison September 15, 2024 INDICATIONS: Onset altered mental status and fever this morning CTDI: vol (mGy): 56.8 DLP: (mGycm): 1242 Technique: Multiple CT axial sections of the brain have been obtained, 5 mm slice thickness. Contrast has not been administered. 2-D sagittal, coronal reconstructions have been obtained Low dose protocols were performed. One or more of the following dose reduction techniques were used; automated exposure control, adjustment of the mA and/or KV according to patient size, use of iterative reconstruction technique. Findings: No significant ventricular enlargement. Intra-axial or extra-axial hemorrhage density is not seen. No mass effect or midline shift Basal cisterns are not remarkable. Fourth ventricle is midline. Cranial vault intact. Moderate chronic ethmoid sinusitis Impression: Negative for acute hemorrhage, mass effect or midline shift Advise clinical correlation and follow-up accordingly
--- NOTE | 2025-09-24 10:17 | PC.NURSE ---
RT at bedside placing pt on high flow o2
[2025-09-24 10:39] LABS: Bilirubin,Urine Negative (Negative); Blood,Urine 2+ (Negative); Clarity,Urine Clear (Clear/Hazy); Color,Urine Yellow (Lt Yel-Yel); Glucose, Urine Negative (Negative); Ketones,Urine Negative (Negative); Leukocyte Esterase,Urine Negative (Negative); Nitrite,Urine Negative (Negative); PH,Urine 6.0 (5.0-7.0); Protein,Urine 1+ (Neg - Trace); RBC,Urine 2 /hpf (0-3); Specific Gravity,Urine 1.024 (1.001-1.035); Urobilinogen,Urine Negative mg/dL (0.0-1.0); WBC,Urine < 1 /hpf (0-5)
[2025-09-24 10:42] LABS: Sperm,Urine Present
[2025-09-24 10:55] LABS: Amphetamine/Methamp Scrn,U Negative (Negative); Barbiturate Screen,Urine Negative (Negative); Benzodiazepines Screen,Urine Positive (Negative); Benzoylecgonine Screen, Ur Negative (Negative); Fentanyl Screen,Urine Negative (Negative); Opiate Screen,Urine Positive (Negative); THC Screen,Urine Negative (Negative)
--- NOTE | 2025-09-24 10:59 | XR_ITS ---
Examination: CT abdomen and pelvis without contrast. Coronal 3-D reconstructions. Sagittal 2-D reconstructions. Date and time of exam: September 24, 2025, 1119 hours INDICATIONS: Shortness of breath fever diarrhea beginning last night CTDI: vol (mGy): 16.3 DLP: (mGycm): 973 Technique: Axial images of the abdomen have been obtained, 3 mm slice thickness Intravenous contrast material has not been administered. Low dose protocols were performed. One or more of the following dose reduction techniques were used; automated exposure control, adjustment of the mA and/or KV according to patient size, use of iterative reconstruction technique. Findings: Significant bibasilar pneumonia No visualized liver or splenic lesion Mild hepatosplenomegaly Absent gallbladder No common bile duct stones No definite pancreatic edema on this noncontrast study Perinephric stranding No renal or ureteral calculi, no hydronephrosis Heavy abdominal aortic calcification no aneurysmal dilatation Normal appendix No bowel obstruction 10 mm fat-containing umbilical hernia No diverticulitis Moderate prostatomegaly Urinary bladder wall thickening up to 12 mm Severe osteopenia with advanced degenerative disc disease L4-L5, L5-S1 IMPRESSION: Significant bibasilar pneumonia No common bile duct stones depicted No renal or ureteral calculi, no hydronephrosis Normal appendix No bowel obstruction or diverticulitis Moderate prostatomegaly Urinary bladder wall thickening, consider cystitis, early urinary tract outflow obstruction secondary to the patient's prostatomegaly Advanced degenerative disc disease L4-L5, L5-S1
[2025-09-24] MEDS: cefTRIAXone/D5w 1gm IV premix 1 GM/50 ML BAG IV (12:09)
--- NOTE | 2025-09-24 13:08 | PC.CC ---
Patient is a 69 year-old male who presents to the hospital from [facility] for a Fever. THUMB SEWER, made face to face contact with the patient, but patient was not responsive as he was asleep. THUMB SEWER made telephone contact with staff at [facility] to complete initial assessment. Per Xena, she was able to confirm information on demographics. She reports patient ambulates with a wheelchair and is 1 person assist with his ADLs. Patient does not require oxygen and is not a dialysis patient. Patient's primary provider is Ally Oreilly and the facility uses [facility] for prescription medication. Upon discharge according to Xena he is able to return to [facility]. services coordinator to follow up with any discharge needs.
--- NOTE | 2025-09-24 13:24 | XR_ITS ---
Examination: Abdomen sonogram, Limited Date and time of exam: September 24, 2025, 1423 hours INDICATIONS: Abdominal pain this week Technique: Real-time ponce scale transabdominal sonographic images of the upper abdomen obtained. Findings: Absent gallbladder Normal common bile duct 0.5 cm no stones Pancreas obscured by bowel gas Liver normal size no focal liver lesions Normal hepatopetal portal venous flow Patent IVC IMPRESSION: Absent gallbladder Normal common bile duct
--- NOTE | 2025-09-24 13:27 | ESHP_ITS ---
<Statement entered by Travis Nugent MD - 09/24/25 16:35> 69-year-old male with history of CAD on Plavix, A-fib on Eliquis, hypertension, CKD, type 2 diabetes mellitus, dysphagia, depression, anxiety who is brought in from [facility] and admitted for sepsis secondary to pneumonia (t bili 2.4, GCS 12). Patient is somnolent at bedside as he opens his eyes to voice but says that after falling asleep and so history obtained from chart review and SNF. Apparently patient had become febrile and hypoxic at his SNF overnight and O2 dropped to 87% for which hospice nurse was contacted, assessed patient, noted gurgling on inspiration and not oriented and so decided to bring patient to the hospital. Initial vitals of BP 213/84, pulse of 108, RR 23, temp 104 ?F, 85% on room air. He subsequently required HFNC in 40 L/min and 60% FiO2. CBC was unremarkable as no leukocytosis and hemoglobin stable. CHEM panel showed mild hypokalemia and elevated T. bili but normal alk phos and LFTs. UA unremarkable, U tox positive for opiates and benzos. Urine and blood cultures obtained. Started on CAP coverage with azithromycin and ceftriaxone. Also going to give an additional 2 L IVF bolus per sepsis protocol. Will keep NPO for now given that patient is altered and unsafe to swallow meds/eat meals. ----- Note reviewed and agree with care plan as documented. Please refer to the note below for further details. Plan discussed with attending physician Dr. Malathi Nugent MD PGY-2 Internal Medicine Documentation for date of: 09/24/25 HPI History of Present Illness Chief complaint: sepsis pneumonia History of present illness: Patient is a 77-year-old male with past medical history of (per nurse at [facility]) CAD, A-fib, hypertension, CKD, type 2 diabetes, dysphagia, depression, anxiety who is brought in by ambulance from [facility] for fever and hypoxia. Contacted [facility] and the patient's nurse informed me that patient had a fever overnight and was given Tylenol, oxygen saturation 87% but on 2 L oxygen nasal cannula with improvement to 94%. Patient's hospice nurse was contacted and assessed the patient, noted gurgling on inspiration and was ANO x 0 patient had a continued fever, had diarrhea the previous day. (Patient unable to give history. History written from combination of patient's nurse at [facility] and chart review) Past Medical History: Above Family History: non-contributory Surgical History: none noted Social History: Denies history of smoking, denies current alcohol use, denies recreational drug use Current Medications: Patient's active meds (per nurse at [facility]) include pantoprazole 40 mg daily, Xanax 1 mg daily, baclofen 10 mg daily, Plavix 75 mg daily, Eliquis 5 mg BID, metoprolol succinate 25 mg p.o. daily, aspart 4 units with meals, pregabalin 150 mg daily, Ranexa XL 500 mg daily, sertraline 150 mg daily, Creon 24,000 to 74,000 units delayed release daily, 21 units degludec daily, as needed Cove, as needed Morphine. Allergies: Per chart review, iodinated contrast & nifedipine ED Course: -Vitals initially were notable for blood pressure 213/84, pulse 108, respiratory rate 23, temperature 104.0 ?F, 85% oxygen saturation on room air. -Labs significant for hemoglobin 12.4, platelets 103, potassium 3.3, total bilirubin 2.4, AST 81, BNP 141. Alysis showed 1+ protein, 2+ blood, sperm present. U tox was positive for opiates and benzodiazepines. -Imaging included: Chest x-ray showed early heart failure EKG showed sinus rhythm with QTc of [address] negative for acute hemorrhage, mass effect or midline shift. Showed moderate chronic ethmoid sinusitis CT abdomen pelvis showed significant bibasilar pneumonia, moderate p.o. thyromegaly, bladder wall thickening severe osteopenia L4-S1 -In the ED, patient was given Tylenol 1000 mg x 1, DuoNeb x 1, 1 L bolus NS, hydralazine 10 mg IV x 1, ceftriaxone 1 g x 1 -Patient was admitted for sepsis pneumonia Review of Systems Review of systems otherwise negative except what is mentioned above. Exam Vital Signs Temp Pulse Resp BP Pulse Ox O2 Del Method O2 Flow Rate 101.5 F H 78 16 113/46 L 100 High Flow Nasal Cannula 40 09/24/25 11:31 09/24/25 11:31 09/24/25 11:31 09/24/25 11:31 09/24/25 10:29 09/24/25 11:31 09/24/25 10:29 FiO2 65 09/24/25 10:29 Narrative Exam General: No acute distress; A&Ox0; lethargic, not responding to commands Skin: Warm, dry, intact, no obvious rash. HENT: NCAT, EOMI/PERRL, not icteric. External ears normal. No rhinorrhea. Dry mucous membranes Cardiovascular: Regular rate and rhythm, no murmur, +S1/S2. Respiratory: Coarse lung sounds bilaterally, HFNC in place, GI: Soft, nontender, non-distended. No guarding or rebound tenderness. : No suprapubic tenderness. No flank tenderness bilaterally. Crane in place Extremities: no edema, no cyanosis, no clubbing. Extremity pulses present Neuro: GCS 10; Grossly nonfocal. Moving all 4 extremities. CN not formally tested but appear grossly intact. Psychiatric: Unable to assess Results: Labs 09/25/25 04:47 09/25/25 04:47 Labs: Short CBC 09/24/25 Range/Units 09:16 WBC 5.7 (3.8-10.6) Thou/mm3 Hgb 12.4 L (13.5-16.0) g/dL Hct 39.1 L (41.0-53.0) % Plt Count 103 L (140-440) Thou/mm3 BMP 09/24/25 09:16 Sodium 144 Potassium 3.3 L Chloride 104 Carbon Dioxide 27.9 BUN 14 Creatinine 1.0 Glucose 87 Calcium 9.6 Cardiac Enzymes 09/24/25 Range/Units 09:16 Troponin I 0.044 (0.0-0.045) ng/mL Liver Function 09/24/25 Range/Units 09:16 Total Bilirubin 2.4 H (0.3-1.2) mg/dL AST 81 H (0-34) U/L ALT 26 (10-49) U/L Alkaline Phosphatase 83 (46-116) U/L Albumin 4.7 (3.4-4.8) gm/dL Urine 09/24/25 Range/Units 09:34 Urine Color Yellow (Lt Yel-Yel) Urine Clarity Clear (Clear/Hazy) Urine pH 6.0 (5.0-7.0) Ur Specific Mcintyre 1.024 (1.001-1.035) Urine Protein 1+ A (Neg - Trace) Urine Glucose (UA) Negative (Negative) Quality Measures Quality Measures sepsis Current suspected stage: sepsis Possible source: GI tract/intra-abdominal Blood cultures ordered: yes Antibiotic ordered: Yes Advance care planning discussed with:: patient and other (Per nurse at [facility], patient full code & on hospice) Medications Home Medications and Allergies Home Medications ?Medication ?Instructions ?Recorded ?Confirmed ?Type apixaban 5 mg tablet (Eliquis) 5 mg PO Q12H 09/24/25 1 11/25/24 History aripiprazole 10 mg tablet 10 mg PO HS 09/24/25 5 History atorvastatin 80 mg tablet 80 mg PO DAILY 09/24/2509/11 History baclofen 10 mg tablet 10 mg PO Q8H PRN muscle spas m 09/24/25 09/24/25 History clopidogrel 75 mg tablet 75 mg PO DAILY 09/24/2509/11 History metoprolol succinate 100 mg 25 mg PO DAILY 09/24/25 History tablet,extended release 24 hr acetaminophen 650 mg rectal 650 mg MO Q4H PRN fever 09/25/25 History suppository alprazolam 1 mg tablet 1 mg PO BID 09/25/25 5 History atorvastatin 80 mg tablet (Lipitor) 80 mg PO QPM 09/2509/25/25 History hydrocodone 10 mg-acetaminophen 1 tab PO BID PRN pain 09/25/25 09/25/25 History 325 mg tablet insulin aspart U-100 100 unit/mL 1 sliding scale dose subcut ACHS 09/25/25 09/25/25 History (3 mL) subcutaneous pen (Novolog FlexPen U-100 Insulin aspart) metoprolol succinate 25 mg 25 mg PO DAILY 09/25/25 History tablet,extended release 24 hr pantoprazole 40 mg tablet,delayed 40 mg PO .Q24 09/25/25 History release pregabalin 150 mg capsule 150 mg PO BID 09/25/2509/25 History ranolazine 500 mg tablet,extended 500 mg PO BID 09/25/25 History release,12 hr sertraline 150 mg capsule 150 mg PO Q24H 09/25/2509/11 History Allergies Allergy/AdvReac Type Severity Reaction Status Date / Time Iodinated Contrast Media Allergy Verified 09/24/25 09:06 nifedipine Allergy Verified 09/24/25 09:06 Visit Medications Discontinued Medications Albuterol/Ipratropium (Albuterol/Ipratropium (Duoneb) Rt Adilene 3 Ml Nebu) 3 ml INH X1 ONE Stop: 09/24/25 09:14 Last Admin: 09/24/25 09:49 Dose: 3 ml Hydralazine HCl (Hydralazine Inj 20 Mg/Ml Vial) 10 mg IVP X1 ONE Stop: 09/24/25 10:20 Last Admin: 09/24/25 11:44 Dose: Not Given Acetaminophen (Ofirmev Inj) 1,000 mg in 100 mls @ 250 mls/hr IV X1 ONE Stop: 09/24/25 09:41 Last Infusion: 09/24/25 10:11 Dose: Infused Sodium Chloride (Ns) 1,000 mls @ 999 mls/hr IV .Q1H1M ONE Stop: 09/24/25 10:39 Last Infusion: 09/24/25 11:08 Dose: Infused Azithromycin 500 mg/ Sodium (Chloride) 250 mls @ 250 mls/hr IV X1 ONE Stop: 09/24/25 12:43 Ceftriaxone Sodium/Dextrose (Rocephin/D5w 1gm Iv Premix) 1 gm in 50 mls @ 100 mls/hr IV X1 ONE Stop: 09/24/25 12:13 Last Admin: 09/24/25 12:09 Dose: 100 mls/hr Assessment & Plan Plan Patient is a 77-year-old male with past medical history of (per nurse at [facility]) CAD, A-fib, hypertension, CKD, type 2 diabetes, dysphagia, depression, anxiety who is brought in by ambulance from [facility] for fever and hypoxia. Found to have significant bibasilar pneumonia. Admitted for sepsis pneumonia. #AHRF #Significant bibasilar pneumonia #Acute Encephalopathy #Sepsis Suspecting community acquired pneumonia. Less likely bacterial with normal wbc and procal of 0.16. Tmax of 104 in ED on admission. Patient noted to have fever for the past day. Patient lethargic, not able to give history. Baseline reported as A&Ox3 Could be due to drugs with UTOX positive for opiates and benzos (home meds of xanax & norco/morphine prn) vs less likely metabolic with cmp not too remarkable. Patient reported to be on hospice & full code On HFNC CT AP showed signficant bibasilar pneumonia PSI score of 115 points, Risk Class 4, 8.2%-9.3% 30-day mortality -Ordered 1L LR bolus x2 (total of 3, 1 L NS in ED) -CTX 1 gm IV qd (09/24- -Azithromycin 250 mg IV qd(09/24- -Continue HFNC, wean as tolerated -NPO, swallow eval, speech referred -Blood, urine cultures taken -Covid, legionella, influenza a/b ordered #T2DM - insulin dependent home meds of degludec 21 u BID and aspart 4u with meal -a1c ordered -restarted degludec -started insulin sliding scale -hypoglycemic protocol in place -glucose checks q6hr #CAD #HTN Patient reported to have had NSTEMI in the last 6 months. Chart review states stent placed BP 213/84 on admission, restarted home meds below -atorvastatin 80 mg q hs restarted (home med) -metoprolol 25 mg po qd restarted (home med) -plavix 75 mg po qd restarted (home med) -home med renexa (ranolazine) 500 mg XL po qd, not in pharmacy. will address anginal pain if present (not currently endorsed, EKG NSR, trops wnl) #Afib home med of eliquis -restarted eliquis 5 mg po bid #insomnia patient altered, will address with improved mental status #TBili elevation #AST elevation Patient TBili 2.4, AST 81 on admission No liver/gall bladder pathology history -ordered US Liver, will follow up -ctm labs #BPH? moderate prostatomegaly found on ct ap -follow up outpatient with pcp #Osteopenia Patient found with advanced degenerative disc disease L4-S1 -follow up outpatient with pcp #BNP elevation BNP 141 on admission Likely reactive from pneumonia #hypokalemia Potassium 3.3 on admission -repleted with KCl, patient NPO (altered) #Anemia, normocytic Patient hgb 12.4 on admission -monitor for s/s bleeding #Thrombocytopenia Plateletes 103 on admission -will monitor for s/s bleeding Hospital Management: Disposition: Tele - sepsis PNA Diet: NPO (speech eval & swallow screen ordered) GI Prophylaxis: Protonix 40 mg IV BID Bowel Prophylaxis:none Crane: Placed on admission DVT Prophylaxis: Eliquis 5 mg po bid CODE STATUS: full code Patient plan of care was discussed with the attending physician, Dr. Servin & senior resident Dr. Raffi Jang MD PGY-1 Attending Provider Attestation/Addendum I have examined the patient, reviewed labs and imaging findings, discussed the case with the resident(s), and reviewed entered orders. I agree with the plan of care as outlined in this note, with these additional summaries/recommendations: After examination of the patient and review of the clinical data, I feel that this patient needs admission to the hospital for further treatment and evaluation. Dr. Malathi MD
[2025-09-24] MEDS: RINGERS LACTATED 1000 ML 1,000 ML 999 ML IV ×2 (14:12→15:24)
[2025-09-24] MEDS: AZITHROMYCIN INJ 500 MG in SODIUM CHLORIDE 0.9% 250 ML 250 ML 250 MG IV (14:13)
[2025-09-24 14:38] LABS: Free T4 (Free Thyroxine) 1.24 ng/dL (0.89-1.76); Thyroid Stimulating Hormone 1.41 uIU/mL (0.55-4.78)
--- NOTE | 2025-09-24 16:02 | PC.NURSE ---
SUSANNAH Abdul spoke with Dr. Bustillo and made aware of pt temp of 103.1 and BP 188/73, HR 88. Per Dr. Bustillo will place orders
--- NOTE | 2025-09-24 16:15 | PC.NURSE ---
[facility] is currently down. This RN called pharmacy to bring pt's IV Labetalol and Acetaminophen
[2025-09-24] MEDS: POTASSIUM CHL 10 mEq IVPB 10 MEQ/100 ML BAG 100 MEQ IV ×3 (19:25→21:25)
--- NOTE | 2025-09-24 20:05 | PC.NURSE ---
CALL MADE BY RADHA FROM [facility] WANTING AN UPDATE ON PTS STATUS
--- NOTE | 2025-09-24 20:07 | PC.RT ---
approx 1830 called to bedside to assess why hiflow was alarming. found temp flickering between 33 and 36 Degrees. Replaced cartridge and problem appears to have cleared.
[2025-09-24] MEDS: ATORVASTATIN CALCIUM 20 MG TABLET 80 MG PO (21:07)
[2025-09-24] MEDS: APIXABAN 2.5 MG TABLET 5 MG PO (21:09)
--- NOTE | 2025-09-24 22:05 | PC.NURSE ---
ICU CHARGE NURSE TOLD THIS NURSE AT 213 TO TAKE OFF COOLING BLANKET AND CALL BACK AFTER 45 MINUTES AND THEN GIVE REPORT.
[2025-09-24] MEDS: DEXTROSE 50%-WATER INJ 50 ML SYRINGE 25 ML IV (22:41)
[2025-09-24 23:24] LABS: Base Excess 3 (-3-3); HCO3 28 mEq/L (20-26); Inspired Oxygen, FIO2 70 %; O2 Saturation 94 % (91-98); PCO2 45 mmHg (32.0-48.0); PO2 66 mmHg (83-108); pH, Arterial 7.40 (7.35-7.45)
[2025-09-24 23:25] LABS: Allen Test Performed/OK; Puncture Site Right Radial
[2025-09-25] VITALS (69 sets, daily range): BP systolic 106–159; BP diastolic 51–72; PULSE 68–96; RESP 4–60; TEMP 37.1–38; O2SAT 88–99
[2025-09-25] MEDS: HYDROmorphone INJ 2 MG/ML VIAL 0.5 MG IVP (01:00)
--- NOTE | 2025-09-25 02:33 | XR_ITS ---
Examination: Venous duplex lower extremity sonogram, bilateral. Date and time of exam: September 25, 2025, 0343 hours INDICATIONS: Leg swelling this week Technique: Multiple sonographic images of the deep venous system have been obtained. B-mode/2-D grayscale imaging of vascular structures and Doppler spectral analysis (waveforms) and color performed Both legs are examined. Findings: Deep venous systems do not demonstrate abnormal echogenicity. All visualized deep veins exhibit compressibility. All visualized deep veins exhibit augmentation. Impression: Negative for deep vein thrombosis
[2025-09-25] MEDS: FUROSEMIDE INJ 10 MG/ML 4ML VIAL 40 MG IVP (05:08)
--- NOTE | 2025-09-25 05:14 | PRELIM_ITS ---
Bilateral lower extremity venous Doppler ultrasound with wave Doppler spectral analysis. September 25, 2025 at 0343 hours Clinical history: Asymmetric leg swelling. Technique: Duplex scan of the bilateral lower extremity deep venous systems was performed utilizing 2D grayscale imaging, Doppler spectral analysis and color flow Doppler and with compression. Comparison: No prior study is available for comparison. Findings: Campuzano scale, color flow and spectral Doppler evaluation of the lower extremity deep veins was performed. Right: The common femoral, superficial femoral and popliteal veins are patent and compressible. Normal respiratory variation is noted. There is no evidence of occlusive or nonocclusive thrombus. The great saphenous vein is patent at the level of the saphenofemoral junction. Left: The common femoral, superficial femoral and popliteal veins are patent and compressible. Normal respiratory variation is noted. There is no evidence of occlusive or nonocclusive thrombus. The great saphenous vein is patent at the level of the saphenofemoral junction. Impression: No sonographic evidence of deep venous thrombosis in both lower extremities. Report Electronically Signed By: Tony Randhawa 09/25/2025 5:14:08 AM [EST]
[2025-09-25 06:57] LABS: Basophils # (Auto) 0.0 Thou/mm3 (0.0-0.2); Basophils % (Auto) 1 % (0-2.5); Eosinophils # (Auto) 0.0 Thou/mm3 (0.0-0.5); Eosinophils % (Auto) 0 % (0-10); Hematocrit 29.9 % (41.0-53.0); Hemoglobin 10.0 g/dL (13.5-16.0); Immature Granulocytes Auto 0.01 Thou/mm3 (0.00-0.00); Lymphocytes # (Auto) 0.3 Thou/mm3 (1.0-4.8); Lymphocytes % (Auto) 7 % (10-50); Mean Corpuscular HGB Conc 33.4 g/dl (31.0-37.0); Mean Corpuscular Hemoglobin 28.1 pg (25.0-35.0); Mean Corpuscular Volume 84 fL (80-100); Monocytes # (Auto) 0.3 Thou/mm3 (0.0-0.8); Monocytes % (Auto) 6 % (0-12); Neutrophils # (Auto) 3.9 Thou/mm3 (1.8-7.7); Neutrophils % (Auto) 86 % (37-80); Nucleated Red Blood Cell # 0.00 Thou/mm3 (0.00-0.00); Nucleated Red Blood Cell % 0 /100 WBC (0); Platelet Count 102 Thou/mm3 (140-440); RDW Standard Deviation 44.3 fL (35.1-43.9); Red Blood Count 3.56 Miln/mm3 (4.50-5.90); White Blood Count 4.5 Thou/mm3 (3.8-10.6)
[2025-09-25 07:02] LABS: Alanine Aminotransferase 27 U/L (10-49); Albumin, Serum 3.4 gm/dL (3.4-4.8); Albumin/Globulin Ratio 1.5 (1.2-2.2); Alkaline Phosphatase 55 U/L (46-116); Anion Gap 9 (7-16); Aspartate Amino Transferase 95 U/L (0-34); BUN/Creatinine Ratio 17 Ratio (12-20); Bilirubin,Total 2.0 mg/dL (0.3-1.2); Blood Urea Nitrogen 17 mg/dL (9-23); Calcium 8.1 mg/dL (8.3-10.6); Calcium (Corrected) 8.6 mg/dL (8.5-10.1); Carbon Dioxide 27.8 mMol/L (20.0-31.0); Cardiac Risk Estimate 2.1 RATIO (4.0-6.7); Chloride 107 mMol/L (98-107); Cholesterol 52 mg/dL (132-200); Creatinine (Component) 1.0 mg/dL (0.6-1.3); Estimated Creatinine Clearance 75.4 mL/min (>60); Globulin 2.2 gm/dL (2.3-3.5); Glucose 87 mg/dL (74-106); HDL Cholesterol 25 mg/dL (40-60); LDL Cholesterol,Calculated 16 mg/dL (0-130); Magnesium 1.3 mg/dL (1.6-2.6); Osmolality,Calculated 287 (275-295); Phosphorous 4.1 mg/dL (2.4-5.1); Potassium 3.0 mMol/L (3.4-5.1); Sodium 144 mMol/L (136-145); Total Protein 5.6 gm/dL (5.7-8.2); Triglycerides 53 mg/dL (30-150); eGFR > 60 See Note
--- NOTE | 2025-09-25 07:26 | XR_ITS ---
EXAMINATION: AP chest single view TECHNIQUE: AP portable semiupright chest single view September 23, 2025, 0826 hours, comparison September 24, 2025 INDICATIONS: Diagnosis acute hypoxic respiratory failure, sepsis alert, history pneumonia FINDINGS: Worsening bibasilar pneumonia Mild prominence left ventricle Mild vascular congestion Prominent osteopenia IMPRESSION: Worsening bibasilar pneumonia
[2025-09-25 07:37] LABS: Glucose Estimated Average 180 mg/dL (80-131); Hemoglobin A1C 7.9 % Hgb (4.8-6.0)
[2025-09-25] MEDS: Magnesium Sulfate 4 GM Ivpb 4 GM/50 ML BAG IV (08:46)
[2025-09-25] MEDS: PIPER/TAZO 3.375 GM PREMIX 3.375 GM/50 ML BAG IV ×3 (08:46→17:31)
[2025-09-25] MEDS: POTASSIUM CHL 10 mEq IVPB 10 MEQ/100 ML BAG 100 MEQ IV ×6 (08:46→17:31)
[2025-09-25] MEDS: VANCOMYCIN/WATER 1250 MG IVPB 250 ML 120 MG IV ×2 (08:51→21:41)
--- NOTE | 2025-09-25 08:53 | PCS.ST ---
Swallow Evaluation completed. See report for details. Recommend soft/chopped diet/regular liquids. No s/s of aspiration.
[2025-09-25] MEDS: APIXABAN 2.5 MG TABLET 5 MG PO ×2 (08:55→21:42)
[2025-09-25] MEDS: CLOPIDOGREL BISULFATE 75 MG TABLET PO (08:55)
[2025-09-25] MEDS: METOPROLOL SUCCINATE XL 25 MG TABCR PO (08:55)
--- NOTE | 2025-09-25 08:57 | ESPR_ITS ---
<Statement entered by Travis Nugent MD - 09/25/25 12:44> No acute overnight events. Overnight was given small dose of dilaudid due to hip pain and night team ordered Doppler due to unequal lower extremity swelling that was negative. At bedside patient was more alert and oriented x3, which is an improvement compared to yesterday but still appearing weak. Remains on HFNC at 25/60 which is a lower rate than yesterday. Afebrile during day shift but noted to have had fevers throughout the night. No leukocytosis, slight decrease in hemoglobin but likely dilutional from IVF boluses. Chem panel showing low K, low Mg, downtrending t bili, and A1c of 7.9%. Repeat CXR appears overall unchanged/slightly improved but offical read showing worsening bibasilar pneumonia. Blood and urine cultures pending. Will switch ceftriaxone/azithromycin to zosyn and vancomycin and follow-up cultures. Passed speech and started on diet. Echo also ordered due to trace lower extremity edema and presentation of acute shortness of breath. ----- Note reviewed and agree with care plan as documented. Please refer to the note below for further details. Plan discussed with attending physician Dr. Malathi Nugent MD PGY-2 Internal Medicine Documentation for date of: 09/25/25 Subjective Subjective Interval history: Overnight it was reported that patient had some hip pain, was given dilaudid 0.5; patient's legs were swollen, left more than right, given lasix 40 mg x1 and US LE's negative for DVT. Patient had fever 104.9 and was given Tylenol IV. Glucose was 61, patient was npo, was given dextrose and held insulin. Was reported to have attempted to wean to nasal cannula, but could not tolerate and was put back on oxymask -> HFNC. This morning patient is A&Ox3, still on hfnc. States he has some abdominal pain, not [id number]. Speech was performing swallow evaluation, stated he passed easily. Patient was getting ready to have a cxr done Echo was ordered given fluid overload and patient never had echo done, per chart review Patient states his person of contact is Neymar Cardenas from [place] Exam Vital Signs Temp Pulse Resp BP Pulse Ox O2 Del Method O2 Flow Rate 99.3 F 83 18 123/53 L 98 High Flow Nasal Cannula 09/25/25 08:01 12/15/25 08:55 09/25/25 08:39 09/25/25 08:55 09/25/25 08:39 09/25/25 08:01 09/25/25 08:01 FiO2 60 09/25/25 08:01 Narrative Exam General: No acute distress; A&Ox3; resting in bed Skin: Warm, dry, intact, no obvious rash. HENT: NCAT, EOMI/PERRL, not icteric. External ears normal. No rhinorrhea. Dry mucous membranes Cardiovascular: Regular rate and rhythm, no murmur, +S1/S2. Respiratory: Coarse lung sounds bilaterally, HFNC in place GI: Soft, nontender, non-distended. No guarding or rebound tenderness. : No suprapubic tenderness. No flank tenderness bilaterally. Crane in place Extremities: trace pitting edema, no cyanosis, no clubbing. Extremity pulses present Neuro: Grossly nonfocal. Moving all 4 extremities. CN not formally tested but appear grossly intact. Psychiatric: appropriate affect, cooperative Objective Labs 09/28/25 04:34 09/28/25 04:34 Labs: Laboratory Results - last 24 hr 09/24/25 09/24/25 09/24/25 09:16 09:34 23:16 WBC 5.7 RBC 4.61 Hgb 12.4 L Hct 39.1 L MCV 85 MCH 26.9 MCHC 31.7 RDW Std Deviation 43.9 Plt Count 103 L Neut % (Auto) 73 Lymph % (Auto) 19 Lake % (Auto) 5 Eos % (Auto) 3 Baso % (Auto) 0 Neut # (Auto) 4.2 Lymph # (Auto) 1.1 Lake # (Auto) 0.3 Eos # (Auto) 0.1 Baso # (Auto) 0.0 Immature Gran # (Auto) 0.01 H Absolute Nucleated RBC 0.00 Immature Gran % 0 Nucleated RBC % 0 PT 11.9 INR 1.1 APTT 27.6 Puncture Site Right Radial ABG pH 7.40 ABG pCO2 45 ABG pO2 66 L ABG HCO3 28 H ABG O2 Saturation 94 ABG Base Excess 3 FiO2 70 Sodium 144 Potassium 3.3 L Chloride 104 Carbon Dioxide 27.9 Anion Gap 12 BUN 14 Creatinine 1.0 Estim Creat Clear Calc 84.1 eGFR > 60 BUN/Creatinine Ratio [address] Glu mg/dL Hemoglobin A1c Calculated Osmolality 286 Lactic Acid 1.8 Calcium 9.6 Corrected Calcium 9.6 Phosphorus Magnesium 1.7 Total Bilirubin 2.4 H AST 81 H ALT 26 Alkaline Phosphatase 83 Troponin I 0.044 B-Natriuretic Peptide 141 H Total Protein 7.7 Albumin 4.7 Globulin 3.0 Albumin/Globulin Ratio 1.6 Triglycerides Cholesterol LDL Cholesterol, Calc HDL Cholesterol Cholesterol/HDL Ratio Lipase 25 Procalcitonin 0.16 TSH 1.41 Free T4 1.24 Ur Collection Type Clean Catch Urine Color Yellow Urine Clarity Clear Urine pH 6.0 Ur Specific [place] 1.024 Urine Protein 1+ A Urine Glucose (UA) Negative Urine Ketones Negative Urine Blood 2+ A Urine Nitrite Negative Urine Bilirubin Negative Urine Urobilinogen (Auto) Negative Ur Leukocyte Esterase Negative Urine RBC 2 Urine WBC < 1 Ur Squamous Epith Cells 0 Urine Bacteria None Urine Sperm Present A Urine Opiates Screen Positive A Urine Fentanyl Screen Negative Ur Barbiturates Screen Negative U Amphetamin/Meth Scrn Negative U Benzodiazepines Scrn Positive A U Cocaine Metab Screen Negative U Marijuana (THC) Screen Negative 09/25/25 04:47 WBC 4.5 RBC 3.56 L Hgb 10.0 L D Hct 29.9 L MCV 84 MCH 28.1 MCHC 33.4 RDW Std Deviation 44.3 H Plt Count 102 L Neut % (Auto) 86 H Lymph % (Auto) 7 L Lake % (Auto) 6 Eos % (Auto) 0 Baso % (Auto) 1 Neut # (Auto) 3.9 Lymph # (Auto) 0.3 L [place] # (Auto) 0.3 Eos # (Auto) 0.0 Baso # (Auto) 0.0 Immature Gran # (Auto) 0.01 H Absolute Nucleated RBC 0.00 Immature Gran % 0 Nucleated RBC % 0 PT INR APTT Puncture Site ABG pH ABG pCO2 ABG pO2 ABG HCO3 ABG O2 Saturation ABG Base Excess FiO2 Sodium 144 Potassium 3.0 L Chloride 107 Carbon Dioxide 27.8 Anion Gap 9 BUN 17 Creatinine 1.0 Estim Creat Clear Calc 75.4 eGFR > 60 BUN/Creatinine Ratio [address] Glu mg/dL 180 H Hemoglobin A1c 7.9 H Calculated Osmolality 287 Lactic Acid Calcium 8.1 L D Corrected Calcium 8.6 Phosphorus 4.1 Magnesium 1.3 L Total Bilirubin 2.0 H AST 95 H ALT 27 Alkaline Phosphatase 55 D Troponin I B-Natriuretic Peptide Total Protein 5.6 L Albumin 3.4 D Globulin 2.2 L Albumin/Globulin Ratio 1.5 Triglycerides 53 Cholesterol 52 L LDL Cholesterol, Calc 16 HDL Cholesterol 25 L Cholesterol/HDL Ratio 2.1 L Lipase Procalcitonin TSH Free T4 Ur Collection Type Urine Color Urine Clarity Urine pH Ur Specific [place] Urine Protein Urine Glucose (UA) Urine Ketones Urine Blood Urine Nitrite Urine Bilirubin Urine Urobilinogen (Auto) Ur Leukocyte Esterase Urine RBC Urine WBC Ur Squamous Epith Cells Urine Bacteria Urine Sperm Urine Opiates Screen Urine Fentanyl Screen Ur Barbiturates Screen U Amphetamin/Meth Scrn U Benzodiazepines Scrn U Cocaine Metab Screen U Marijuana (THC) Screen ABG Interpretation ABG results: 09/24/25 23:16 ABG pH 7.40 ABG pCO2 45 ABG pO2 66 L ABG HCO3 28 H ABG O2 Saturation 94 ABG Base Excess 3 Quality Measures Quality Measures sepsis Current suspected stage: sepsis Possible source: GI tract/intra-abdominal Blood cultures ordered: yes Antibiotic ordered: Yes Advance care planning discussed with:: patient Assessment & Plan Assessment Current Active Medications: Generic Name Dose Route Start Last Admin Trade Name Freq PRN Reason Stop Dose Admin Acetaminophen 650 mg 09/24/25 13:29 Acetaminophen 325 Mg Tablet PO 10/24/25 13:28 On Hold: 09/24/25 16:05 Q6H PRN Comment: DEYANIRA ACTIVE Fever >100.5 Apixaban 5 mg 09/24/25 21:00 09/25/25 08:55 Apixaban 2.5 Mg Tablet PO 10/24/25 20:59 5 mg BID DEYANIRA Administration Atorvastatin Calcium 80 mg 09/24/25 21:00 09/24/25 21:07 Atorvastatin Calcium 20 Mg Tablet PO 10/24/25 20:59 80 mg HS DEYANIRA Administration Clopidogrel Bisulfate 75 mg 09/25/25 09:00 09/25/25 08:55 Clopidogrel Bisulfate 75 Mg Tablet PO 10/25/25 08:59 75 mg QDAY DEYANIRA Administration Dextrose 25 ml 09/24/25 14:56 09/24/25 22:41 Dextrose 50%-Water Inj 50 Ml Syringe IV 10/24/25 14:55 25 ml Q15MIN PRN Administration BG 50-70 responsive npo pt Dextrose 50 ml 09/24/25 14:56 Dextrose 50%-Water Inj 50 Ml Syringe IV 10/24/25 14:55 Q15MIN PRN BG <50 OR BG <70 & pt unresponsive Glucagon 1 mg 09/24/25 14:56 Glucagon Inj 1 Mg Vial IM Q15MIN PRN BG <70, and no IV access Potassium Chloride 10 meq in 100 mls @ 100 mls/hr 09/25/25 07:26 09/25/25 08:46 Kcl Ivpb IV 09/25/25 13:25 100 mls/hr Q1H DEYANIRA Administration Magnesium Sulfate 4 gm in 50 mls @ 12.5 mls/hr 09/25/25 07:27 09/25/25 08:46 Magnesium Sulfate Ivpb IV 09/25/25 11:26 12.5 mls/hr X1 ONE Administration Piperacillin/Tazobactam/Dextrose 3.375 gm in 50 mls @ 100 mls/hr 09/25/25 08:15 09/25/25 08:46 Zosyn IV 10/02/25 08:14 100 mls/hr Q6HR DEYANIRA Administration Protocol Vancomycin HCl 250 mls @ 120 mls/hr 09/25/25 08:30 09/25/25 08:51 Vancomycin/Water 1250 Mg Ivpb IV 10/02/25 08:29 120 mls/hr BID@1000,2200 DEYANIRA Administration Protocol Insulin Human Lispro 0 unit 09/25/25 01:00 09/25/25 06:42 Insulin Lispro (Admelog) 1 Unit/0.01 Ml Unit SC 10/25/25 00:59 Not Given Q6H DEYANIRA Protocol Labetalol HCl 10 mg 09/24/25 16:02 09/24/25 16:45 Labetalol Inj 5 Mg/Ml Vial 4 Ml IVP 10/24/25 16:14 10 mg Q10MIN PRN Administration Hypertension Metoprolol Succinate 25 mg 09/25/25 09:00 09/25/25 08:55 Metoprolol Succinate Xl 25 Mg Tabcr PO 10/25/25 08:59 25 mg QDAY DEYANIRA Administration Ondansetron HCl 4 mg 09/24/25 13:29 Ondansetron Inj 2 Mg/Ml Inj 2 Ml IVP 10/24/25 13:28 Q6H PRN NAUSEA OR VOMITING Protocol Pantoprazole Sodium 40 mg 09/24/25 21:00 09/25/25 08:46 Pantoprazole Inj 40 Mg Vial IVP 10/24/25 20:59 40 mg BID DEYANIRA Administration Pharmacy Consult 1 each 09/25/25 09:00 Vancomycin Pharmacy To Dose 1 Each Each IV 10/25/25 08:59 QDAY PRN PROTOCOL Plan Patient is a 77-year-old male with past medical history of (per nurse at [facility]) CAD, A-fib, hypertension, CKD, type 2 diabetes, dysphagia, depression, anxiety who is brought in by ambulance from [facility] for fever and hypoxia. Found to have significant bibasilar pneumonia. Admitted for sepsis pneumonia. #AHRF #Significant bibasilar pneumonia #Sepsis Suspecting community acquired pneumonia. Less likely bacterial with normal wbc and procal of 0.16. Tmax of 104 in ED on admission. Patient noted to have fever for the past day. Patient lethargic, not able to give history. Baseline reported as A&Ox3 Could be due to drugs with UTOX positive for opiates and benzos (home meds of xanax & norco/morphine prn) vs less likely metabolic with cmp not too remarkable. Patient reported to be on hospice & full code On HFNC CT AP showed signficant bibasilar pneumonia PSI score of 115 points, Risk Class 4, 8.2%-9.3% 30-day mortality Given 3L total bolus 09/25 CXR showed worsening bibasilar pneumonia -CTX & Azithromycin switched to Vanc/Zosyn -Continue HFNC, wean as tolerated -Blood, urine cultures taken, mrsa ordered -Covid, legionella, influenza a/b ordered #T2DM - insulin dependent home meds of degludec 21 u BID and aspart 4u with meal Patient glucose 61, was given dextrose, normalized -a1c ordered -Will restart degludec when appropriate -started insulin sliding scale -hypoglycemic protocol in place -glucose checks q6hr #CAD #HTN Patient reported to have had NSTEMI in the last 6 months. Chart review states stent placed BP 213/84 on admission, restarted home meds below -atorvastatin 80 mg q hs restarted (home med) -metoprolol 25 mg po qd restarted (home med) -plavix 75 mg po qd restarted (home med) -home med renexa (ranolazine) 500 mg XL po qd, not in pharmacy. will address anginal pain if present (not currently endorsed, EKG NSR, trops wnl) -Echo was ordered given fluid overload and patient never had echo done, per chart review #Afib home med of eliquis -restarted eliquis 5 mg po bid #TBili elevation #AST elevation Patient TBili 2.4, AST 81 on admission No liver/gall bladder pathology history Liver US unremarkable Tbili downtrending, AST still mildly elevated -ctm labs #hypokalemia Potassium 3.3 on admission -repleted -will continue to monitor and replete as necessary #Anemia, normocytic Patient hgb 12.4 on admission hgb 10 today 2/2 3L fluids yesterday -monitor for s/s bleeding #Thrombocytopenia Plateletes 103 on admission -will monitor for s/s bleeding #BNP elevation BNP 141 on admission Likely reactive from pneumonia #insomnia patient altered, will address with improved mental status #BPH? moderate prostatomegaly found on ct ap -follow up outpatient with pcp #Osteopenia Patient found with advanced degenerative disc disease L4-S1 -follow up outpatient with pcp Hospital Management: Disposition: Tele - sepsis PNA Diet: Dysphagia 2 - mech altered GI Prophylaxis: Protonix 40 mg IV BID Bowel Prophylaxis: none Crane: Yes, placed on admission DVT Prophylaxis: Eliquis 5 mg po bid CODE STATUS: full code Patient plan of care was discussed with the attending physician, Dr. Servin & senior resident Dr. Raffi Jang MD PGY-1 Attending Provider Attestation/Addendum I have examined the patient, reviewed labs and imaging findings, discussed the case with the resident(s), and reviewed entered orders. I agree with the plan of care as outlined in this note. Dr. Malathi MD
--- NOTE | 2025-09-25 10:25 | ECHO_ITS ---
Patient Info Name: Peter Brunson Age: 69 years : 1955 Gender: Male Ht: 183 cm Wt: 90 kg BSA: 2.15 m2 BP: 123 / 53 mmHg HR: 74 bpm Exam Date: 09/25/2025 10:56 AM Admit Date: 09/24/2025 Site: [facility] Room Number: 257 Patient Status: I Exam Type: CA echo doppler complete Radio Electronics Technician: Bobbi Mcgraw Ordering Physician: Brian Jang Study Info Indications fluid overloaded, no echo done in pastD - Primary Location: S2SX Left Ventricular Outflow Tract Name Value Normal LVOT 2D LVOT Diameter 2.0 cm LVOT Doppler LVOT Peak Velocity 114 cm/s LVOT Mean Gradient 3 mmHg LVOT VTI 24 cm LVOT VTI/AV VTI Ratio 0.9 LVOT Stroke Volume 75 ml Pulmonic Valve Name Value Normal PV Doppler PV Peak Velocity 92 cm/s Mitral Valve Name Value Normal MV Doppler MV Decel [place] 592 cm/s2 MV PHT 52 ms MV Area (PHT) 4.2 cm2 4.0-5.0 MV Diastolic Function MV E Peak Velocity 106 cm/s MV A Peak Velocity 62 cm/s MV E/A 1.7 MV Annular TDI MV Septal e' Velocity 8.1 cm/s MV E/e' (Septal) 13.2 MV Lateral e' Velocity 9.6 cm/s MV E/e' (Lateral) 11.1 MV e' Average 8.81 cm/s MV E/e' (Average) 12.1 Tricuspid Valve Name Value Normal TV Regurgitation Doppler TR Peak Velocity 220 cm/s Estimated PAP/RSVP RA Pressure 3 mmHg <=5 PA Systolic Pressure 22 mmHg <36 RV Systolic Pressure 22 mmHg <36 TV Annular TDI TV Lateral Tia s' Velocity 15.6 cm/s >=9.5 Aortic Valve Name Value Normal AV 2D/MM AV Cusp Sep (MM) 1.9 cm AV Doppler AV Peak Velocity 135 cm/s AV Mean Gradient 4 mmHg AV VTI 27 cm AV Area (Cont Eq VTI) 2.8 cm2 >=3.0 AV Area (Cont Eq Hector) 2.7 cm2 AV DI (Hector) 0.84 AV Regurgitation 2D LVOT Area 3.1 cm2 Ventricles Name Value Normal LV Dimensions 2D/MM IVS Diastolic Thickness (2D) 1.0 cm 0.6-1.0 LVID Diastole (2D) 4.3 cm 4.2-5.8 LVIW Diastolic Thickness (2D) 1.2 cm 0.6-1.0 LVID Systole (2D) 2.9 cm 2.5-4.0 LVOT Diameter 2.0 cm LV Mass (2D Cubed) 162.94 g 88.00-224.00 LV Mass Index (2D Cubed) 76 g/m2 49-115 Relative Wall Thickness (2D) 0.56 <=0.42 IVS/LVIW Diastolic Thickness (2D) 0.83 0.00-1.50 LV Fractional Shortening/Ejection Fraction 2D/MM LV Fractional Shortening (2D) 33 % 25-43 LV EF (2D Teichholz) 61 % RV Dimensions 2D/MM TV Lateral Tia s' Velocity 15.6 cm/s >=9.5 Atria Name Value Normal LA Dimensions LA Volume (4C A-L) 74 ml LA Volume (BP A-L) 78 ml Left Ventricle Left ventricular chamber dimension is normal. Left ventricular systolic function is normal with visually estimated ejection fraction of 60-65%. There is concentric remodeling noted in the left ventricle. Left ventricular segmental wall motion is normal. There is normal diastolic function in the left ventricle. Right Ventricle Right ventricular chamber dimension is normal. Right ventricular systolic function is normal. Left Atrium Left atrial chamber dimension is moderately enlarged. Right Atrium Right atrial chamber dimension is normal. Aortic Valve The aortic valve is trileaflet. There is mild aortic valve sclerosis. There is no aortic valve stenosis with a peak velocity of 135 cm/s, mean gradient of 4 mmHg, and aortic valve area of 2.8 cm2. There is no aortic valve regurgitation. Pulmonic Valve The pulmonic valve is normal. There is no pulmonic valve stenosis. There is no pulmonic regurgitation. Mitral Valve The mitral valve has normal leaflets. There is no mitral valve stenosis. There is mild mitral valve regurgitation. Tricuspid Valve The tricuspid valve leaflets are normal. There is no tricuspid valve stenosis. There is trace tricuspid valve regurgitation. No pulmonary hypertension, estimated pulmonary arterial systolic pressure is 22 mmHg and systemic blood pressure of 123 mmHg in systole. Pericardium/Pleural The pericardium appears normal. There is no pericardial effusion. No pleural effusion visualized. Inferior Vena Cava Normal inferior vena cava with >50% collapse upon inspiration consistent with normal right atrial pressure, 3 mmHg. Aorta The aortic measurements are indexed to age and body surface area. The aortic root at the sinus of Valsalva is not well visualized. The prox ascending aorta is not well visualized. Summary 1. Left ventricle size is normal and systolic function is normal. Estimated ejection fraction is 60-65%. There is normal diastolic function. 2. Right ventricle chamber size is normal and systolic function is normal. Estimated RVSP is 22 mmHg. 3. There is mild aortic valve sclerosis with no stenosis and no regurgitation. 4. There is mild mitral valve regurgitation and Trace Tricuspid regurgitation. 5. The left atrium is moderately enlarged. The right atrium is normal. 6. Normal IVC with estimated RA pressure 3 mmHg. Report Signatures Finalized by Amada Neil on 09/25/2025 01:16 PM
[2025-09-25 14:58] LABS: Cocci Serology, IgM Negative (Negative)
--- NOTE | 2025-09-25 15:21 | PC.SS ---
Update: Patient downgraded from ICU on 09-25-25. Urine culture is pending.
[2025-09-25] MEDS: ATORVASTATIN CALCIUM 20 MG TABLET 80 MG PO (21:41)
[2025-09-26] VITALS (14 sets, daily range): BP systolic 135–179; BP diastolic 51–83; PULSE 68–103; RESP 13–26; TEMP 36.1–37.8; O2SAT 90–99; BMI 26.9
[2025-09-26] MEDS: PIPER/TAZO 3.375 GM PREMIX 3.375 GM/50 ML BAG IV ×4 (00:40→21:02)
[2025-09-26 06:18] LABS: Basophils # (Auto) 0.0 Thou/mm3 (0.0-0.2); Basophils % (Auto) 0 % (0-2.5); Eosinophils # (Auto) 0.0 Thou/mm3 (0.0-0.5); Eosinophils % (Auto) 0 % (0-10); Hematocrit 32.0 % (41.0-53.0); Hemoglobin 10.3 g/dL (13.5-16.0); Immature Granulocytes Auto 0.04 Thou/mm3 (0.00-0.00); Lymphocytes # (Auto) 0.4 Thou/mm3 (1.0-4.8); Lymphocytes % (Auto) 7 % (10-50); Mean Corpuscular HGB Conc 32.2 g/dl (31.0-37.0); Mean Corpuscular Hemoglobin 27.1 pg (25.0-35.0); Mean Corpuscular Volume 84 fL (80-100); Monocytes # (Auto) 0.4 Thou/mm3 (0.0-0.8); Monocytes % (Auto) 7 % (0-12); Neutrophils # (Auto) 5.0 Thou/mm3 (1.8-7.7); Neutrophils % (Auto) 86 % (37-80); Nucleated Red Blood Cell # 0.00 Thou/mm3 (0.00-0.00); Nucleated Red Blood Cell % 0 /100 WBC (0); Platelet Count 130 Thou/mm3 (140-440); RDW Standard Deviation 43.5 fL (35.1-43.9); Red Blood Count 3.80 Miln/mm3 (4.50-5.90); White Blood Count 5.8 Thou/mm3 (3.8-10.6)
[2025-09-26 06:45] LABS: Alanine Aminotransferase 41 U/L (10-49); Albumin, Serum 3.9 gm/dL (3.4-4.8); Albumin/Globulin Ratio 1.4 (1.2-2.2); Alkaline Phosphatase 61 U/L (46-116); Anion Gap 15 (7-16); Aspartate Amino Transferase 122 U/L (0-34); BUN/Creatinine Ratio 17 Ratio (12-20); Bilirubin,Total 2.4 mg/dL (0.3-1.2); Blood Urea Nitrogen 17 mg/dL (9-23); Calcium 8.8 mg/dL (8.3-10.6); Calcium (Corrected) 8.9 mg/dL (8.5-10.1); Carbon Dioxide 25.3 mMol/L (20.0-31.0); Chloride 103 mMol/L (98-107); Creatinine (Component) 1.0 mg/dL (0.6-1.3); Estimated Creatinine Clearance 75.4 mL/min (>60); Globulin 2.8 gm/dL (2.3-3.5); Glucose 108 mg/dL (74-106); Magnesium 2.0 mg/dL (1.6-2.6); Osmolality,Calculated 287 (275-295); Phosphorous 2.1 mg/dL (2.4-5.1); Potassium 3.0 mMol/L (3.4-5.1); Sodium 143 mMol/L (136-145); Total Protein 6.7 gm/dL (5.7-8.2); eGFR > 60 See Note
[2025-09-26] MEDS: ACETYLCYSTEINE RT SOL 10% 4 ML NEBU 3 ML INH (06:45)
[2025-09-26] MEDS: ALBUTEROL/IPRATROPIUM (Duoneb) RT SOL 3 ML NEBU INH ×4 (06:46→18:40)
[2025-09-26] MEDS: POT PHOS 15 mMol in NS 250 ML 15 MMOL/250 ML BAG 62.5 MMOL IV (09:08)
[2025-09-26] MEDS: POTASSIUM CHLORIDE 10% 20 MEQ/15 ML UDC 40 MEQ GT (09:09)
[2025-09-26] MEDS: METOPROLOL SUCCINATE XL 25 MG TABCR PO (09:10)
[2025-09-26] MEDS: APIXABAN 2.5 MG TABLET 5 MG PO ×2 (09:10→21:02)
[2025-09-26] MEDS: CLOPIDOGREL BISULFATE 75 MG TABLET PO (09:10)
[2025-09-26] MEDS: DEXTROSE 5%-0.45% NS 1,000 ML 75 ML IV (10:15)
[2025-09-26] MEDS: VANCOMYCIN/WATER 1250 MG IVPB 250 ML 120 MG IV (10:37)
--- NOTE | 2025-09-26 10:48 | ESPR_ITS ---
<Statement entered by Travis Nugent MD - 09/26/25 13:38> No acute overnight events. Seen and examined at bedside and patient appeared fatigued and would fall asleep during conversation but was alert and oriented when he was conversing. He remains on HFNC and 30/50 which is a slight improvement compared to yesterday. Last fever was midnight on 09/24. BP elevated and has as needed labetalol, will add antihypertensive agent. CBC showing no leukocytosis and hemoglobin stable. CHEM panel showing K 3.0 incomplete as well as hypophosphatemia that will be repleted. Echo obtained that showed EF 60 to 65% with normal diastolic function and normal RVSP. Blood cultures showing no growth today and urine cultures negative. Will continue Vanco and Zosyn at this time, wean down oxygen as tolerated. Started on pancreatic enzymes to help with loose bowel movements. ----- Note reviewed and agree with care plan as documented. Please refer to the note below for further details. Plan discussed with attending physician Dr. Malathi Nugent MD PGY-2 Internal Medicine Documentation for date of: 09/26/25 Subjective Subjective Interval history: Yesterday patient had multiple bouts of loose stool, restarted pancreas enzymes This morning patient is A&Ox3, still on hfnc. States he has some hip pain Afebrile overnight, BP rises with pain exacerbations. Patient states cannot eat very much because it just goes out of him. Put patient on maint fluids D5/NS. Will see if pancreas enzymes help with diarrhea, if not, will workup diarrhea community mental health worker will attempt to figure out reason for patient being on hospice Exam Vital Signs Temp Pulse Resp BP Pulse Ox O2 Del Method O2 Flow Rate 100.1 F 101 H 20 179/83 H 94 L High Flow Nasal Cannula 35 09/26/25 08:00 09/26/25 09:10 09/26/25 08:00 09/26/25 09:10 09/26/25 08:00 09/26/25 08:00 09/26/25 08:00 FiO2 65 09/26/25 08:00 Narrative Exam General: No acute distress; A&Ox3; resting in bed Skin: Warm, dry, intact, no obvious rash. HENT: NCAT, EOMI/PERRL, not icteric. External ears normal. No rhinorrhea. Dry mucous membranes Cardiovascular: Regular rate and rhythm, no murmur, +S1/S2. Respiratory: Coarse lung sounds bilaterally, HFNC in place GI: Soft, nontender, non-distended. No guarding or rebound tenderness. : No suprapubic tenderness. No flank tenderness bilaterally. Crane in place Extremities: trace pitting edema, no cyanosis, no clubbing. Extremity pulses present Neuro: Grossly nonfocal. Moving all 4 extremities. CN not formally tested but appear grossly intact. Psychiatric: appropriate affect, cooperative Objective Labs 09/26/25 05:42 09/26/25 05:42 Labs: Laboratory Results - last 24 hr 09/25/25 09/26/25 08:33 05:42 WBC 5.8 RBC 3.80 L Hgb 10.3 L Hct 32.0 L MCV 84 MCH 27.1 MCHC 32.2 RDW Std Deviation 43.5 Plt Count 130 L D Neut % (Auto) 86 H Lymph % (Auto) 7 L Dubois % (Auto) 7 Eos % (Auto) 0 Baso % (Auto) 0 Neut # (Auto) 5.0 Lymph # (Auto) 0.4 L Dubois # (Auto) 0.4 Eos # (Auto) 0.0 Baso # (Auto) 0.0 Immature Gran # (Auto) 0.04 H Absolute Nucleated RBC 0.00 Immature Gran % 1 H Nucleated RBC % 0 Sodium 143 Potassium 3.0 L Chloride 103 Carbon Dioxide 25.3 Anion Gap 15 BUN 17 Creatinine 1.0 Estim Creat Clear Calc 75.4 eGFR > 60 BUN/Creatinine Ratio 17 Glucose 108 H Calculated Osmolality 287 Calcium 8.8 Corrected Calcium 8.9 Phosphorus 2.1 L Magnesium 2.0 Total Bilirubin 2.4 H AST 122 H ALT 41 Alkaline Phosphatase 61 Total Protein 6.7 Albumin 3.9 D Globulin 2.8 Albumin/Globulin Ratio 1.4 Coccidioides IgM Ab Negative ABG Interpretation ABG results: 09/24/25 23:16 ABG pH 7.40 ABG pCO2 45 ABG pO2 66 L ABG HCO3 28 H ABG O2 Saturation 94 ABG Base Excess 3 Quality Measures Quality Measures VTE prophylaxis Advance care planning discussed with:: patient Assessment & Plan Assessment Current Active Medications: Generic Name Dose Route Start Last Admin Trade Name Freq PRN Reason Stop Dose Admin Acetaminophen 650 mg 09/24/25 13:29 Acetaminophen 325 Mg Tablet PO 10/24/25 13:28 Q6H PRN Fever >100.5 Albuterol/Ipratropium 3 ml 09/26/25 07:00 09/26/25 10:45 Albuterol/Ipratropium (Duoneb) Rt Adilene 3 Ml Nebu INH 10/26/25 06:59 3 ml Q4HRRT DEYANIRA Administration Apixaban 5 mg 09/24/25 21:00 09/26/25 09:10 Apixaban 2.5 Mg Tablet PO 10/24/25 20:59 5 mg BID DEYANIRA Administration Atorvastatin Calcium 80 mg 09/24/25 21:00 09/25/25 21:41 Atorvastatin Calcium 20 Mg Tablet PO 10/24/25 20:59 80 mg HS DEYANIRA Administration Clopidogrel Bisulfate 75 mg 09/25/25 09:00 09/26/25 09:10 Clopidogrel Bisulfate 75 Mg Tablet PO 10/25/25 08:59 75 mg QDAY DEYANIRA Administration Dextrose 25 ml 09/24/25 14:56 09/24/25 22:41 Dextrose 50%-Water Inj 50 Ml Syringe IV 10/24/25 14:55 25 ml Q15MIN PRN Administration BG 50-70 responsive npo pt Dextrose 50 ml 09/24/25 14:56 Dextrose 50%-Water Inj 50 Ml Syringe IV 10/24/25 14:55 Q15MIN PRN BG <50 OR BG <70 & pt unresponsive Glucagon 1 mg 09/24/25 14:56 Glucagon Inj 1 Mg Vial IM Q15MIN PRN BG <70, and no IV access Piperacillin/Tazobactam/Dextrose 3.375 gm in 50 mls @ 100 mls/hr 09/25/25 08:15 09/26/25 05:21 Zosyn IV 10/02/25 08:14 100 mls/hr Q6HR DEYANIRA Administration Protocol Vancomycin HCl 250 mls @ 120 mls/hr 09/25/25 08:30 09/26/25 10:37 Vancomycin/Water 1250 Mg Ivpb IV 10/02/25 08:29 120 mls/hr BID@1000,2200 DEYANIRA Administration Protocol Potassium Phosphate 15 mmol in 250 mls @ 62.5 mls/hr 09/26/25 08:10 09/26/25 09:08 Pot Phos 15 Mmol In Ns 250 Ml IV 09/26/25 12:09 62.5 mls/hr X1 ONE Administration Dextrose/Sodium Chloride 1,000 mls @ 75 mls/hr 09/26/25 09:54 09/26/25 10:15 D5-1/2ns IV 10/26/25 09:53 75 mls/hr .[id number] DEYANIRA Administration Insulin Human Lispro 0 unit 09/25/25 01:00 09/26/25 06:33 Insulin Lispro (Admelog) 1 Unit/0.01 Ml Unit SC 10/25/25 00:59 Not Given Q6H DEYANIRA Protocol Labetalol HCl 10 mg 09/24/25 16:02 09/24/25 16:45 Labetalol Inj 5 Mg/Ml Vial 4 Ml IVP 10/24/25 16:14 10 mg Q10MIN PRN Administration Hypertension Metoprolol Succinate 25 mg 09/25/25 09:00 09/26/25 09:10 Metoprolol Succinate Xl 25 Mg Tabcr PO 10/25/25 08:59 25 mg QDAY DEYANIRA Administration Non-Formulary Medication 1 cap 09/26/25 10:00 Jsmcvv-Cgomymen-Kvfkvxe (Pork) [Creon] PO 10/26/25 09:59 QDAY DEYANIRA Ondansetron HCl 4 mg 09/24/25 13:29 Ondansetron Inj 2 Mg/Ml Inj 2 Ml IVP 10/24/25 13:28 Q6H PRN NAUSEA OR VOMITING Protocol Pantoprazole Sodium 40 mg 09/24/25 21:00 09/26/25 09:09 Pantoprazole Inj 40 Mg Vial IVP 10/24/25 20:59 40 mg BID DEYANIRA Administration Pharmacy Consult 1 each 09/25/25 09:00 Vancomycin Pharmacy To Dose 1 Each Each IV 10/25/25 08:59 QDAY PRN PROTOCOL Plan Patient is a 77-year-old male with past medical history of (per nurse at [facility]) CAD, A-fib, hypertension, CKD, type 2 diabetes, depression, anxiety who is brought in by ambulance from [facility] for fever and hypoxia. Found to have significant bibasilar pneumonia. Admitted for sepsis pneumonia. #AHRF #Significant bibasilar pneumonia #Sepsis Suspecting community acquired pneumonia. Less likely bacterial with normal wbc and procal of 0.16. Tmax of 104 in ED on admission. Patient noted to have fever for the past day. Patient lethargic, not able to give history. Baseline reported as A&Ox3 Could be due to drugs with UTOX positive for opiates and benzos (home meds of xanax & norco/morphine prn) vs less likely metabolic with cmp not too remarkable. Patient reported to be on hospice & full code On HFNC CT AP showed signficant bibasilar pneumonia PSI score of 115 points, Risk Class 4, 8.2%-9.3% 30-day mortality Given 3L total bolus 09/25 CXR showed worsening bibasilar pneumonia -Vanc/Zosyn -Continue HFNC, wean as tolerated -Blood, urine cultures taken, mrsa ordered -Covid, legionella, influenza a/b ordered #Diarrhea Patient endorses diarrhea since admission Patient not tolerating foods very well, states it goes through him anything he eats/drinks Restarted his pancreas enzymes Will follow up to see if that helps with the diarrhea. -started maintenance fluid D5/NS -consulted dietitian #T2DM - insulin dependent home meds of degludec 21 u BID and aspart 4u with meal Patient glucose 61, was given dextrose, normalized -a1c ordered -Will restart degludec when appropriate -insulin sliding scale -hypoglycemic protocol in place -glucose checks q6hr #CAD #HTN Patient reported to have had NSTEMI in the last 6 months. Chart review states stent placed BP 213/84 on admission, restarted home meds below Echo 09/25 EF 60-65% -atorvastatin 80 mg q hs restarted (home med) -metoprolol 25 mg po qd restarted (home med) -plavix 75 mg po qd restarted (home med) -home med renexa (ranolazine) 500 mg XL po qd, not in pharmacy. will address anginal pain if present (not currently endorsed, EKG NSR, trops wnl) #Afib home med of eliquis -restarted eliquis 5 mg po bid #TBili elevation #AST elevation Patient TBili 2.4, AST 81 on admission No liver/gall bladder pathology history Liver US unremarkable Tbili downtrending, AST still mildly elevated -ctm labs #hypokalemia #hypophosphatemia Potassium 3.3 on admission -repleted -will continue to monitor and replete e-lytes as necessary #Anemia, normocytic Patient hgb 12.4 on admission hgb 10 today 2/2 3L fluids yesterday -monitor for s/s bleeding #Thrombocytopenia Plateletes 103 on admission -will monitor for s/s bleeding #BNP elevation BNP 141 on admission Likely reactive from pneumonia #insomnia patient altered, will address with improved mental status #BPH? moderate prostatomegaly found on ct ap -follow up outpatient with pcp #Osteopenia Patient found with advanced degenerative disc disease L4-S1 -follow up outpatient with pcp Hospital Management: Disposition: Tele - sepsis PNA Diet: Dysphagia 2 - mech altered GI Prophylaxis: Protonix 40 mg IV BID Bowel Prophylaxis: none Crane: Yes, placed on admission DVT Prophylaxis: Eliquis 5 mg po bid CODE STATUS: full code Patient plan of care was discussed with the attending physician, Dr. Martinez & senior resident Dr. Raffi Jang MD PGY-1 Attending Provider Attestation/Addendum I, Regina Martinez DO, attest that I was physically present for the fregoso portions of the service and evaluated the patient with the resident and I reviewed and discussed the case with the resident and agree with the resident's findings and plans of care as documented above Patient seen and evaluated this AM. He states that he had been on hospice in the past, but unable to further elaborate why, likely due to pain control. He remains on HFNC on 35L/min and FiO2 of 65% and continues to have scattered rhonchi in b/l lung [place]. He continues to have diarrhea. He states that he had a pancreatic cyst removed in the past, hence the reason for pancreatic enzymes. Continue with chest PT and mucolytics.
[2025-09-26] MEDS: DEXTROSE 5%-NS 1,000 ML 80 ML IV (11:55)
[2025-09-26 11:57] LABS: Cocci Serology, IgG Negative (Negative)
[2025-09-26] MEDS: INSULIN LISPRO (AdmeLOG) 1 UNIT/0.01 ML UNIT SC ×2 (12:16→17:16)
--- NOTE | 2025-09-26 12:19 | PC.NURSE ---
Dr. Nugent notified in person, patient's medication, Creon, is not available through pharmacy or through [employer].
[2025-09-26 15:55] LABS: Band Neutrophils (Manual) 22 % (0-6); Lymphocytes (Manual) 4 % (20-44); Monocytes (Manual) 3 % (2-9); Neutrophils (Manual) 71 % (50-70)
[2025-09-26] MEDS: AMYLASE/LIPASE/PROTEASE CAPSULE (Pancreaze) 1 CAP PO (16:05)
[2025-09-26] MEDS: HYDROcodone/APAP 5/325 TABLET 1 TAB PO (16:05)
[2025-09-26] MEDS: PANTOPRAZOLE 40 MG TABLET PO (21:02)
[2025-09-26] MEDS: ATORVASTATIN CALCIUM 20 MG TABLET 80 MG PO (21:02)
[2025-09-26 21:48] LABS: Vancomycin,Trough 21.8 mcg/mL (5.0-10.0)
[2025-09-27] VITALS (12 sets, daily range): BP systolic 118–172; BP diastolic 48–72; PULSE 70–100; RESP 16–27; TEMP 36.7–37.2; O2SAT 88–97; BMI 25.4
[2025-09-27] MEDS: INSULIN LISPRO (AdmeLOG) 1 UNIT/0.01 ML UNIT SC ×4 (00:58→18:11)
[2025-09-27] MEDS: DEXTROSE 5%-NS 1,000 ML 80 ML IV ×2 (00:59→13:33)
[2025-09-27] MEDS: PIPER/TAZO 3.375 GM PREMIX 3.375 GM/50 ML BAG IV ×3 (05:26→21:36)
[2025-09-27 06:20] LABS: Basophils # (Auto) 0.0 Thou/mm3 (0.0-0.2); Basophils % (Auto) 0 % (0-2.5); Eosinophils # (Auto) 0.0 Thou/mm3 (0.0-0.5); Eosinophils % (Auto) 0 % (0-10); Hematocrit 28.3 % (41.0-53.0); Hemoglobin 9.2 g/dL (13.5-16.0); Immature Granulocytes Auto 0.08 Thou/mm3 (0.00-0.00); Lymphocytes # (Auto) 0.5 Thou/mm3 (1.0-4.8); Lymphocytes % (Auto) 10 % (10-50); Mean Corpuscular HGB Conc 32.5 g/dl (31.0-37.0); Mean Corpuscular Hemoglobin 27.0 pg (25.0-35.0); Mean Corpuscular Volume 83 fL (80-100); Monocytes # (Auto) 0.4 Thou/mm3 (0.0-0.8); Monocytes % (Auto) 7 % (0-12); Neutrophils # (Auto) 4.2 Thou/mm3 (1.8-7.7); Neutrophils % (Auto) 81 % (37-80); Nucleated Red Blood Cell # 0.00 Thou/mm3 (0.00-0.00); Nucleated Red Blood Cell % 0 /100 WBC (0); Platelet Count 127 Thou/mm3 (140-440); RDW Standard Deviation 43.0 fL (35.1-43.9); Red Blood Count 3.41 Miln/mm3 (4.50-5.90); White Blood Count 5.2 Thou/mm3 (3.8-10.6)
[2025-09-27 06:43] LABS: Alanine Aminotransferase 30 U/L (10-49); Albumin, Serum 3.5 gm/dL (3.4-4.8); Albumin/Globulin Ratio 1.3 (1.2-2.2); Alkaline Phosphatase 56 U/L (46-116); Anion Gap 12 (7-16); Aspartate Amino Transferase 52 U/L (0-34); BUN/Creatinine Ratio 16 Ratio (12-20); Bilirubin,Total 2.1 mg/dL (0.3-1.2); Blood Urea Nitrogen 14 mg/dL (9-23); Calcium 8.7 mg/dL (8.3-10.6); Calcium (Corrected) 9.1 mg/dL (8.5-10.1); Carbon Dioxide 28.0 mMol/L (20.0-31.0); Chloride 106 mMol/L (98-107); Creatinine (Component) 0.9 mg/dL (0.6-1.3); Estimated Creatinine Clearance 83.8 mL/min (>60); Globulin 2.6 gm/dL (2.3-3.5); Glucose 205 mg/dL (74-106); Magnesium 2.0 mg/dL (1.6-2.6); Osmolality,Calculated 297 (275-295); Phosphorous 2.0 mg/dL (2.4-5.1); Potassium 3.2 mMol/L (3.4-5.1); Sodium 146 mMol/L (136-145); Total Protein 6.1 gm/dL (5.7-8.2); eGFR > 60 See Note
[2025-09-27] MEDS: ALBUTEROL/IPRATROPIUM (Duoneb) RT SOL 3 ML NEBU INH (06:47)
[2025-09-27] MEDS: POT PHOS 15 mMol in NS 250 ML 15 MMOL/250 ML BAG 62.5 MMOL IV (08:49)
[2025-09-27] MEDS: POTASSIUM CHLORIDE 10% 20 MEQ/15 ML UDC PO (08:49)
[2025-09-27] MEDS: APIXABAN 2.5 MG TABLET 5 MG PO ×2 (08:49→20:44)
[2025-09-27] MEDS: AMYLASE/LIPASE/PROTEASE CAPSULE (Pancreaze) 1 CAP PO (08:49)
[2025-09-27] MEDS: METOPROLOL SUCCINATE XL 25 MG TABCR PO (08:50)
[2025-09-27] MEDS: PANTOPRAZOLE 40 MG TABLET PO ×2 (08:50→20:44)
[2025-09-27] MEDS: CLOPIDOGREL BISULFATE 75 MG TABLET PO (08:50)
--- NOTE | 2025-09-27 10:04 | ESPR_ITS ---
<Statement entered by Travis Nugent MD - 09/27/25 14:35> No acute overnight events. Seen and examined at bedside and patient appeared to be more awake compared to yesterday. Denies any shortness of breath or chest discomfort but states he had 4 loose BMs yesterday for which his pancreatic enzymes were restarted. Otherwise, he has no complaints. Continues to be on HFNC but requirements are downtrending as he is now on and has been afebrile since 09/24 at midnight. CBC stable, CHEM panel shows hypokalemia that was repleted, hypophosphatemia that was repleted. Restarted home long-acting insulin given increased fingersticks. Continue to wean off HFNC, vancomycin transition to doxycycline and continuing Zosyn. Breathing treatments changed PRN as he has been refusing. ----- Note reviewed and agree with care plan as documented. Please refer to the note below for further details. Plan discussed with attending physician Dr. Michelle Nugent MD PGY-2 Internal Medicine Documentation for date of: 09/27/25 Subjective Subjective Interval history: Patient today states he had some diarrhea, but that it was slightly more formed. Patient continues to be afebrile, weaning down of hfnc Patient continues to have hip/back pain, gave norco times 1 today. BP rises with pain exacerbations. Changed vancomycin to doxycycline Patient able to tolerate food much better today Scheduled 7 u degludec sc q night; monitoring po intake Exam Vital Signs Temp Pulse Resp BP Pulse Ox O2 Del Method O2 Flow Rate 99.0 F 84 22 H 118/48 L 90 L High Flow Nasal Cannula 09/27/25 08:00 09/27/25 08:50 09/27/25 08:00 09/27/25 08:50 09/27/25 08:00 09/27/25 08:00 09/27/25 08:00 FiO2 30 09/27/25 08:00 Narrative Exam General: No acute distress; A&Ox3; resting in bed Skin: Warm, dry, intact, no obvious rash. HENT: NCAT, EOMI/PERRL, not icteric. External ears normal. No rhinorrhea. Dry mucous membranes Cardiovascular: Regular rate and rhythm, no murmur, +S1/S2. Respiratory: Coarse lung sounds bilaterally, HFNC in place GI: Soft, nontender, non-distended. No guarding or rebound tenderness. : No suprapubic tenderness. No flank tenderness bilaterally. Crane in place Extremities: trace pitting edema, no cyanosis, no clubbing. Extremity pulses present Neuro: Grossly nonfocal. Moving all 4 extremities. CN not formally tested but appear grossly intact. Psychiatric: appropriate affect, cooperative Objective Labs 09/27/25 05:20 09/27/25 05:20 Labs: Laboratory Results - last 24 hr 09/25/25 09/26/25 09/26/25 08:33 05:42 21:10 WBC RBC Hgb Hct MCV MCH MCHC RDW Std Deviation Plt Count Neut % (Auto) Lymph % (Auto) Benzie % (Auto) Eos % (Auto) Baso % (Auto) Neut # (Auto) Lymph # (Auto) Benzie # (Auto) Eos # (Auto) Baso # (Auto) Immature Gran # (Auto) Absolute Nucleated RBC Immature Gran % Neutrophils % (Manual) 71 H Monocytes % (Manual) 3 Nucleated RBC % Band Neutrophils 22 H Lymphocytes (Manual) 4 L Sodium Potassium Chloride Carbon Dioxide Anion Gap BUN Creatinine Estim Creat Clear Calc eGFR BUN/Creatinine Ratio Glucose Calculated Osmolality Calcium Corrected Calcium Phosphorus Magnesium Total Bilirubin AST ALT Alkaline Phosphatase Total Protein Albumin Globulin Albumin/Globulin Ratio Vancomycin Trough 21.8 H* Coccidioides IgG Ab Negative 09/27/25 05:20 WBC 5.2 RBC 3.41 L Hgb 9.2 L Hct 28.3 L MCV 83 MCH 27.0 MCHC 32.5 RDW Std Deviation 43.0 Plt Count 127 L Neut % (Auto) 81 H Lymph % (Auto) 10 Benzie % (Auto) 7 Eos % (Auto) 0 Baso % (Auto) 0 Neut # (Auto) 4.2 Lymph # (Auto) 0.5 L Benzie # (Auto) 0.4 Eos # (Auto) 0.0 Baso # (Auto) 0.0 Immature Gran # (Auto) 0.08 H Absolute Nucleated RBC 0.00 Immature Gran % 2 H Neutrophils % (Manual) Monocytes % (Manual) Nucleated RBC % 0 Band Neutrophils Lymphocytes (Manual) Sodium 146 H Potassium 3.2 L Chloride 106 Carbon Dioxide 28.0 Anion Gap 12 BUN 14 Creatinine 0.9 Estim Creat Clear Calc 83.8 eGFR > 60 BUN/Creatinine Ratio 16 Glucose 205 H D Calculated Osmolality 297 H Calcium 8.7 Corrected Calcium 9.1 Phosphorus 2.0 L Magnesium 2.0 Total Bilirubin 2.1 H AST 52 H ALT 30 Alkaline Phosphatase 56 Total Protein 6.1 Albumin 3.5 Globulin 2.6 Albumin/Globulin Ratio 1.3 Vancomycin Trough Coccidioides IgG Ab ABG Interpretation ABG results: 09/24/25 23:16 ABG pH 7.40 ABG pCO2 45 ABG pO2 66 L ABG HCO3 28 H ABG O2 Saturation 94 ABG Base Excess 3 Quality Measures Quality Measures VTE prophylaxis Advance care planning discussed with:: patient Assessment & Plan Assessment Current Active Medications: Generic Name Dose Route Start Last Admin Trade Name Freq PRN Reason Stop Dose Admin Acetaminophen 650 mg 09/24/25 13:29 Acetaminophen 325 Mg Tablet PO 10/24/25 13:28 Q6H PRN Fever >100.5 Albuterol/Ipratropium 3 ml 09/26/25 07:00 09/27/25 06:47 Albuterol/Ipratropium (Duoneb) Rt Adilene 3 Ml Nebu INH 10/26/25 06:59 3 ml Q4HRRT DEYANIRA Administration Apixaban 5 mg 09/24/25 21:00 09/27/25 08:49 Apixaban 2.5 Mg Tablet PO 10/24/25 20:59 5 mg BID DEYANIRA Administration Atorvastatin Calcium 80 mg 09/24/25 21:00 09/26/25 21:02 Atorvastatin Calcium 20 Mg Tablet PO 10/24/25 20:59 80 mg HS DEYANIRA Administration Clopidogrel Bisulfate 75 mg 09/25/25 09:00 09/27/25 08:50 Clopidogrel Bisulfate 75 Mg Tablet PO 10/25/25 08:59 75 mg QDAY DEYANIRA Administration Dextrose 25 ml 09/24/25 14:56 09/24/25 22:41 Dextrose 50%-Water Inj 50 Ml Syringe IV 10/24/25 14:55 25 ml Q15MIN PRN Administration BG 50-70 responsive npo pt Dextrose 50 ml 09/24/25 14:56 Dextrose 50%-Water Inj 50 Ml Syringe IV 10/24/25 14:55 Q15MIN PRN BG <50 OR BG <70 & pt unresponsive Glucagon 1 mg 09/24/25 14:56 Glucagon Inj 1 Mg Vial IM Q15MIN PRN BG <70, and no IV access Guaifenesin 100 mg 09/26/25 16:39 Guaifenesin Syrup 200 Mg/10 Ml Udc PO 10/26/25 16:38 QID PRN COUGH Protocol Dextrose/Sodium Chloride 1,000 mls @ 80 mls/hr 09/26/25 11:15 09/27/25 00:59 D5-Ns IV 10/26/25 11:14 80 mls/hr .[id number] DEYANIRA Administration Piperacillin/Tazobactam/Dextrose 3.375 gm in 50 mls @ 12.5 mls/hr 09/26/25 14:00 09/27/25 05:26 Zosyn IV 10/03/25 13:59 12.5 mls/hr Q8HR DEYANIRA Administration Protocol Potassium Phosphate 15 mmol in 250 mls @ 62.5 mls/hr 09/27/25 08:09 09/27/25 08:49 Pot Phos 15 Mmol In Ns 250 Ml IV 09/27/25 12:08 62.5 mls/hr X1 ONE Administration Doxycycline Hyclate 100 mg/ 100 mls @ 100 mls/hr 09/27/25 21:00 Sodium Chloride IV 10/04/25 20:59 BID DEYANIRA Insulin Degludec 7 unit 09/27/25 19:00 Insulin Degludec 5 Unit/0.05 Ml (Per 5 Units) SC 10/27/25 18:59 QDAY@1900 [facility] Insulin Human Lispro 0 unit 09/26/25 13:34 09/27/25 05:27 Insulin Lispro (Admelog) 1 Unit/0.01 Ml Unit SC 10/26/25 13:33 2 unit Q6HR DEYANIRA Administration Protocol Labetalol HCl 10 mg 09/24/25 16:02 09/24/25 16:45 Labetalol Inj 5 Mg/Ml Vial 4 Ml IVP 10/24/25 16:14 10 mg Q10MIN PRN Administration Hypertension Metoprolol Succinate 25 mg 09/25/25 09:00 09/27/25 08:50 Metoprolol Succinate Xl 25 Mg Tabcr PO 10/25/25 08:59 25 mg QDAY DEYANIRA Administration Ondansetron HCl 4 mg 09/24/25 13:29 Ondansetron Inj 2 Mg/Ml Inj 2 Ml IVP 10/24/25 13:28 Q6H PRN NAUSEA OR VOMITING Protocol Pancreatin 1 cap 09/26/25 14:30 09/27/25 08:49 Amylase/Lipase/Protease Capsule (Pancreaze) PO 10/26/25 14:29 1 cap QDAY DEYANIRA Administration Pantoprazole Sodium 40 mg 09/26/25 21:00 09/27/25 08:50 Pantoprazole 40 Mg Tablet PO 10/26/25 20:59 40 mg BID DEYANIRA Administration Protocol Plan Patient is a 77-year-old male with past medical history of (per nurse at [facility]) CAD, A-fib, hypertension, CKD, type 2 diabetes, depression, anxiety who is brought in by ambulance from [facility] for fever and hypoxia. Found to have significant bibasilar pneumonia. Admitted for sepsis pneumonia. FTH diarrhea -> given pancreas enzymes, improving. PO intake improving. HFNC weaning down. #AHRF #Significant bibasilar pneumonia #Sepsis Suspecting community acquired pneumonia. Less likely bacterial with normal wbc and procal of 0.16. Tmax of 104 in ED on admission. Patient noted to have fever for the past day. Patient lethargic, not able to give history. Baseline reported as A&Ox3 Could be due to drugs with UTOX positive for opiates and benzos (home meds of xanax & norco/morphine prn) vs less likely metabolic with cmp not too remarkable. Patient reported to be on hospice & full code On HFNC CT AP showed signficant bibasilar pneumonia PSI score of 115 points, Risk Class 4, 8.2%-9.3% 30-day mortality Given 3L total bolus 09/25 CXR showed worsening bibasilar pneumonia MRSA positive, urine cx negative -Doxycycline/Zosyn -Continue HFNC, wean as tolerated -Blood ng48 hrs -Covid, legionella, influenza a/b ordered #Diarrhea, improving Patient endorses diarrhea since admission Patient not tolerating foods very well, states it goes through him anything he eats/drinks Restarted his pancreas enzymes Loose stools continued, but reported as better formed PO intake improving 09/27 -consulted dietitian #T2DM - insulin dependent home meds of degludec 21 u BID and aspart 4u with meal Patient glucose 61, was given dextrose, normalized A1c 7.9 on 09/25/2025 -Restarted degludec 7 u q night -insulin sliding scale -hypoglycemic protocol in place -glucose checks q6hr #CAD #HTN Patient reported to have had NSTEMI in the last 6 months. Chart review states stent placed BP 213/84 on admission, restarted home meds below Echo 15 EF 60-65% -atorvastatin 80 mg q hs restarted (home med) -metoprolol 25 mg po qd restarted (home med) -plavix 75 mg po qd restarted (home med) -home med renexa (ranolazine) 500 mg XL po qd, not in pharmacy. will address anginal pain if present (not currently endorsed, EKG NSR, trops wnl) #Afib home med of eliquis -restarted eliquis 5 mg po bid #TBili elevation #AST elevation Patient TBili 2.4, AST 81 on admission No liver/gall bladder pathology history Liver US unremarkable Tbili downtrending, AST still mildly elevated -ctm labs #hypokalemia #hypophosphatemia Potassium 3.3 on admission -repleted -will continue to monitor and replete e-lytes as necessary #Anemia, normocytic Patient hgb 12.4 on admission hgb 10 today 2/2 3L fluids yesterday -monitor for s/s bleeding #Thrombocytopenia Plateletes 103 on admission -will monitor for s/s bleeding #BNP elevation BNP 141 on admission Likely reactive from pneumonia #insomnia patient altered, will address with improved mental status #BPH? moderate prostatomegaly found on ct ap -follow up outpatient with pcp #Osteopenia Patient found with advanced degenerative disc disease L4-S1 -follow up outpatient with pcp Hospital Management: Disposition: Tele - sepsis PNA Diet: Dysphagia 3 GI Prophylaxis: Protonix 40 mg IV BID Bowel Prophylaxis: none Crane: Yes, placed on admission DVT Prophylaxis: Eliquis 5 mg po bid CODE STATUS: full code Patient plan of care was discussed with the attending physician, Dr. Martinez & senior resident Dr. Raffi Jang MD PGY-1 Attending Provider Attestation/Addendum Yeny, Regina Martinez, DO, attest that I was physically present for the fregoso portions of the service and evaluated the patient with the resident and I reviewed and discussed the case with the resident and agree with the resident's findings and plans of care as documented above Patient seen and evaluated this AM. He states he is feeling better today. BMs have also become more formed. Patient remains on HFNC with FiO2 of 50% and flow of 25L/min. He continues to have scattered rhonchi in b/l lung [place]. Continue with chest PT and scheduled mucolytics. Will swithc to doxycyline for added atypical coverage and DC vancomycin. Continue with IV zosyn otherwise.
--- NOTE | 2025-09-27 14:30 | PC.SS ---
Rounding Note: Patient remains on high flow oxygen. Receiving IV antibiotics.
[2025-09-27] MEDS: HYDROcodone/APAP 5/325 TABLET 1 TAB PO (16:22)
[2025-09-27] MEDS: INSULIN DEGLUDEC 5 UNIT/0.05 ML (PER 5 UNITS) 7 UNIT SC (18:10)
[2025-09-27] MEDS: ATORVASTATIN CALCIUM 20 MG TABLET 80 MG PO (20:44)
[2025-09-27] MEDS: guaiFENesin SYRUP 200 MG/10 ML UDC 100 MG PO (20:47)
[2025-09-27] MEDS: DOXYCYCLINE INJ 100 MG in SODIUM CHLORIDE 0.9% (POP) 100 ML IV (20:48)
[2025-09-28] VITALS (13 sets, daily range): BP systolic 151–161; BP diastolic 62–85; PULSE 60–95; RESP 14–32; TEMP 36.7–38.2; O2SAT 79–98; BMI 25.4
[2025-09-28] MEDS: INSULIN LISPRO (AdmeLOG) 1 UNIT/0.01 ML UNIT SC ×4 (00:43→17:30)
[2025-09-28] MEDS: DEXTROSE 5%-NS 1,000 ML 80 ML IV ×2 (02:48→14:58)
[2025-09-28] MEDS: PIPER/TAZO 3.375 GM PREMIX 3.375 GM/50 ML BAG IV ×3 (05:13→22:13)
[2025-09-28 05:37] LABS: Basophils # (Auto) 0.0 Thou/mm3 (0.0-0.2); Basophils % (Auto) 0 % (0-2.5); Eosinophils # (Auto) 0.0 Thou/mm3 (0.0-0.5); Eosinophils % (Auto) 0 % (0-10); Hematocrit 30.0 % (41.0-53.0); Hemoglobin 9.5 g/dL (13.5-16.0); Immature Granulocytes Auto 0.01 Thou/mm3 (0.00-0.00); Lymphocytes # (Auto) 0.5 Thou/mm3 (1.0-4.8); Lymphocytes % (Auto) 8 % (10-50); Mean Corpuscular HGB Conc 31.7 g/dl (31.0-37.0); Mean Corpuscular Hemoglobin 27.1 pg (25.0-35.0); Mean Corpuscular Volume 86 fL (80-100); Monocytes # (Auto) 0.4 Thou/mm3 (0.0-0.8); Monocytes % (Auto) 7 % (0-12); Neutrophils # (Auto) 4.9 Thou/mm3 (1.8-7.7); Neutrophils % (Auto) 84 % (37-80); Nucleated Red Blood Cell # 0.00 Thou/mm3 (0.00-0.00); Nucleated Red Blood Cell % 0 /100 WBC (0); Platelet Count 146 Thou/mm3 (140-440); RDW Standard Deviation 44.4 fL (35.1-43.9); Red Blood Count 3.51 Miln/mm3 (4.50-5.90); White Blood Count 5.9 Thou/mm3 (3.8-10.6)
[2025-09-28 06:18] LABS: Alanine Aminotransferase 26 U/L (10-49); Albumin, Serum 3.8 gm/dL (3.4-4.8); Albumin/Globulin Ratio 1.5 (1.2-2.2); Alkaline Phosphatase 65 U/L (46-116); Anion Gap 12 (7-16); Aspartate Amino Transferase 29 U/L (0-34); BUN/Creatinine Ratio 12 Ratio (12-20); Bilirubin,Total 2.2 mg/dL (0.3-1.2); Blood Urea Nitrogen 11 mg/dL (9-23); Calcium 8.7 mg/dL (8.3-10.6); Calcium (Corrected) 8.9 mg/dL (8.5-10.1); Carbon Dioxide 29.1 mMol/L (20.0-31.0); Chloride 106 mMol/L (98-107); Creatinine (Component) 0.9 mg/dL (0.6-1.3); Estimated Creatinine Clearance 83.8 mL/min (>60); Globulin 2.5 gm/dL (2.3-3.5); Glucose 209 mg/dL (74-106); Magnesium 1.7 mg/dL (1.6-2.6); Osmolality,Calculated 297 (275-295); Phosphorous 2.2 mg/dL (2.4-5.1); Potassium 3.3 mMol/L (3.4-5.1); Sodium 147 mMol/L (136-145); Total Protein 6.3 gm/dL (5.7-8.2); eGFR > 60 See Note
--- NOTE | 2025-09-28 09:01 | PC.SS ---
REPAIRER [employer] confirmed that patient is aligned with [facility]. Patient is a resident of [facility]. REPA[employer]ER [employer] updated resident.
[2025-09-28] MEDS: METOPROLOL SUCCINATE XL 25 MG TABCR PO (09:26)
[2025-09-28] MEDS: DOXYCYCLINE INJ 100 MG in SODIUM CHLORIDE 0.9% (POP) 100 ML IV ×2 (09:27→21:21)
[2025-09-28] MEDS: PANTOPRAZOLE 40 MG TABLET PO ×2 (09:34→21:21)
[2025-09-28] MEDS: AMYLASE/LIPASE/PROTEASE CAPSULE (Pancreaze) 1 CAP PO (09:34)
[2025-09-28] MEDS: CLOPIDOGREL BISULFATE 75 MG TABLET PO (09:34)
[2025-09-28] MEDS: APIXABAN 2.5 MG TABLET 5 MG PO ×2 (09:34→21:21)
[2025-09-28] MEDS: NAPH,KPH MBDB 1 PACKET (1.5 GM) PO ×2 (09:34→17:34)
--- NOTE | 2025-09-28 10:01 | ESPR_ITS ---
<Statement entered by Travis Nugent MD - 09/28/25 13:53> No acute overnight events. Seen and examined at bedside and patient seems to be more fatigued compared to yesterday but was responding to questions. Spoke to piano case and bench assembler and confirmed that patient is on hospice for primary diagnosis of Parkinson's disease with dyskinesia, dysphagia. Continues to be on high flow nasal cannula with slightly increased oxygen requirements but does not appear to be in respiratory distress. CBC unremarkable. CHEM panel showing hyperosmolar hypernatremia and mildly low K and phosphorus that were repleted. Cultures showing no growth today but will continue with doxycycline and Zosyn. ----- Note reviewed and agree with care plan as documented. Please refer to the note below for further details. Plan discussed with attending physician Dr. Malathi Nugent MD PGY-2 Internal Medicine Documentation for date of: 09/28/25 Subjective Subjective Interval history: NAEO. Patient not tolerating as much food the last 24 hours. Only 1 moderate sized loose bowel movement. Noted to be improved from a few days ago though. Patient this morning more lethargic compared to yesterday. Complains of back/hip pain. Patient denies having history of parkinsons BP to 160s with pain. Patient afebrile overnight and this morning; continues to be on HFNC with mild increase in O2 needs from yesterday Exam Vital Signs Temp Pulse Resp BP Pulse Ox O2 Del Method O2 Flow Rate 98.3 F 77 14 153/62 H 96 High Flow Nasal Cannula 25 09/28/25 08:00 09/28/25 09:26 09/28/25 08:00 09/28/25 09:26 09/28/25 08:00 09/28/25 08:00 09/28/25 08:00 FiO2 55 09/28/25 08:00 Narrative Exam General: No acute distress; A&Ox3; resting in bed Skin: Warm, dry, intact, no obvious rash. HENT: NCAT, EOMI/PERRL, not icteric. External ears normal. No rhinorrhea. Dry mucous membranes Cardiovascular: Regular rate and rhythm, no murmur, +S1/S2. Respiratory: Coarse lung sounds bilaterally, HFNC in place GI: Soft, nontender, non-distended. No guarding or rebound tenderness. : No suprapubic tenderness. No flank tenderness bilaterally. Crane in place Extremities: trace pitting edema, no cyanosis, no clubbing. Extremity pulses present Neuro: Grossly nonfocal. Moving all 4 extremities. CN not formally tested but appear grossly intact. Psychiatric: appropriate affect, cooperative Objective Labs 09/29/25 05:45 09/29/25 05:45 Labs: Laboratory Results - last 24 hr 09/28/25 04:34 WBC 5.9 RBC 3.51 L Hgb 9.5 L Hct 30.0 L MCV 86 MCH 27.1 MCHC 31.7 RDW Std Deviation 44.4 H Plt Count 146 Neut % (Auto) 84 H Lymph % (Auto) 8 L Gem % (Auto) 7 Eos % (Auto) 0 Baso % (Auto) 0 Neut # (Auto) 4.9 Lymph # (Auto) 0.5 L Gem # (Auto) 0.4 Eos # (Auto) 0.0 Baso # (Auto) 0.0 Immature Gran # (Auto) 0.01 H Absolute Nucleated RBC 0.00 Immature Gran % 0 Nucleated RBC % 0 Sodium 147 H Potassium 3.3 L Chloride 106 Carbon Dioxide 29.1 Anion Gap 12 BUN 11 Creatinine 0.9 Estim Creat Clear Calc 83.8 eGFR > 60 BUN/Creatinine Ratio 12 Glucose 209 H Calculated Osmolality 297 H Calcium 8.7 Corrected Calcium 8.9 Phosphorus 2.2 L Magnesium 1.7 Total Bilirubin 2.2 H AST 29 ALT 26 Alkaline Phosphatase 65 Total Protein 6.3 Albumin 3.8 Globulin 2.5 Albumin/Globulin Ratio 1.5 ABG Interpretation ABG results: 09/24/25 23:16 ABG pH 7.40 ABG pCO2 45 ABG pO2 66 L ABG HCO3 28 H ABG O2 Saturation 94 ABG Base Excess 3 Quality Measures Quality Measures VTE prophylaxis Advance care planning discussed with:: patient Assessment & Plan Assessment Current Active Medications: Generic Name Dose Route Start Last Admin Trade Name Freq PRN Reason Stop Dose Admin Acetaminophen 650 mg 09/24/25 13:29 Acetaminophen 325 Mg Tablet PO 10/24/25 13:28 Q6H PRN Fever >100.5 Albuterol/Ipratropium 3 ml 09/27/25 13:49 Albuterol/Ipratropium (Duoneb) Rt Adilene 3 Ml Nebu INH 10/26/25 06:59 Q4HRRT PRN shortness of breath Apixaban 5 mg 12/14/25 21:00 09/28/25 09:34 Apixaban 2.5 Mg Tablet PO 10/24/25 20:59 5 mg BID DEYNAIRA Administration Atorvastatin Calcium 80 mg 09/24/25 21:00 09/27/25 20:44 Atorvastatin Calcium 20 Mg Tablet PO 10/24/25 20:59 80 mg HS DEYANIRA Administration Clopidogrel Bisulfate 75 mg 09/25/25 09:00 09/28/25 09:34 Clopidogrel Bisulfate 75 Mg Tablet PO 10/25/25 08:59 75 mg QDAY DEYANIRA Administration Dextrose 25 ml 09/24/25 14:56 09/24/25 22:41 Dextrose 50%-Water Inj 50 Ml Syringe IV 10/24/25 14:55 25 ml Q15MIN PRN Administration BG 50-70 responsive npo pt Dextrose 50 ml 09/24/25 14:56 Dextrose 50%-Water Inj 50 Ml Syringe IV 10/24/25 14:55 Q15MIN PRN BG <50 OR BG <70 & pt unresponsive Glucagon 1 mg 09/24/25 14:56 Glucagon Inj 1 Mg Vial IM Q15MIN PRN BG <70, and no IV access Guaifenesin 100 mg 09/27/25 21:00 09/28/25 05:17 Guaifenesin Syrup 200 Mg/10 Ml Udc PO 10/27/25 20:59 Not Given QID [facility] Protocol Dextrose/Sodium Chloride 1,000 mls @ 80 mls/hr 09/26/25 11:15 09/28/25 02:48 D5-Ns IV 10/26/25 11:14 80 mls/hr .[id number] DEYANIRA Administration Piperacillin/Tazobactam/Dextrose 3.375 gm in 50 mls @ 12.5 mls/hr 09/26/25 14:00 09/28/25 05:13 Zosyn IV 10/03/25 13:59 12.5 mls/hr Q8HR DEYANIRA Administration Protocol Doxycycline Hyclate 100 mg/ 100 mls @ 100 mls/hr 09/27/25 21:00 09/28/25 09:27 Sodium Chloride IV 10/04/25 20:59 100 mls/hr BID DEYANIRA Administration Insulin Degludec 15 unit 09/28/25 19:00 Insulin Degludec 5 Unit/0.05 Ml (Per 5 Units) SC 10/28/25 18:59 QDAY@1900 [facility] Insulin Human Lispro 0 unit 09/27/25 18:40 09/28/25 05:11 Insulin Lispro (Admelog) 1 Unit/0.01 Ml Unit SC 10/26/25 13:33 3 unit Q6HR DEYANIRA Administration Protocol Labetalol HCl 10 mg 09/24/25 16:02 09/24/25 16:45 Labetalol Inj 5 Mg/Ml Vial 4 Ml IVP 10/24/25 16:14 10 mg Q10MIN PRN Administration Hypertension Metoprolol Succinate 25 mg 09/25/25 09:00 09/28/25 09:26 Metoprolol Succinate Xl 25 Mg Tabcr PO 10/25/25 08:59 25 mg QDAY DEYANIRA Administration Ondansetron HCl 4 mg 09/24/25 13:29 Ondansetron Inj 2 Mg/Ml Inj 2 Ml IVP 10/24/25 13:28 Q6H PRN NAUSEA OR VOMITING Protocol Pancreatin 1 cap 09/26/25 14:30 09/28/25 09:34 Amylase/Lipase/Protease Capsule (Pancreaze) PO 10/26/25 14:29 1 cap QDAY DEYANIRA Administration Pantoprazole Sodium 40 mg 09/26/25 21:00 09/28/25 09:34 Pantoprazole 40 Mg Tablet PO 10/26/25 20:59 40 mg BID DEYANIRA Administration Protocol Potassium Phos/Sodium Phos 1 packet 09/28/25 08:00 09/28/25 09:34 Naph,h Mbdb 1 Packet (1.5 Gm) PO 10/28/25 07:59 1 packet BIDWM DEYANIRA Administration Plan Patient is a 77-year-old male with past medical history of (per nurse at [facility]) CAD, A-fib, hypertension, CKD, type 2 diabetes, depression, anxiety who is brought in by ambulance from [facility] for fever and hypoxia. Found to have significant bibasilar pneumonia. Admitted for sepsis pneumonia. FTH diarrhea -> given pancreas enzymes, improving. Still requiring HFNC #AHRF #Significant bibasilar pneumonia #Sepsis Suspecting community acquired pneumonia. Less likely bacterial with normal wbc and procal of 0.16. Tmax of 104 in ED on admission. Patient noted to have fever for the past day. Patient lethargic, not able to give history. Baseline reported as A&Ox3 Could be due to drugs with UTOX positive for opiates and benzos (home meds of xanax & norco/morphine prn) vs less likely metabolic with cmp not too remarkable. Patient reported to be on hospice & full code On HFNC CT AP showed signficant bibasilar pneumonia PSI score of 115 points, Risk Class 4, 8.2%-9.3% 30-day mortality Given 3L total bolus 09/25 CXR showed worsening bibasilar pneumonia MRSA positive, urine cx negative -Doxycycline/Zosyn -Continue HFNC, wean as tolerated -Blood ng48 hrs -Covid, legionella, influenza a/b ordered #Diarrhea, improving Patient endorses diarrhea since admission Patient not tolerating foods very well, states it goes through him anything he eats/drinks Restarted his pancreas enzymes Loose stools continued, but reported as better formed PO intake improving 09/27 -consulted dietitian #T2DM - insulin dependent home meds of degludec 21 u BID and aspart 4u with meal Patient glucose 61, was given dextrose, normalized A1c 7.9 on 09/25/2025 -Restarted degludec 7 u --> 15 units q hs. -insulin sliding scale -hypoglycemic protocol in place -glucose checks q6hr #CAD #HTN Patient reported to have had NSTEMI in the last 6 months. Chart review states stent placed BP 213/84 on admission, restarted home meds below Echo 09/25 EF 60-65% -atorvastatin 80 mg q hs restarted (home med) -metoprolol 25 mg po qd restarted (home med) -plavix 75 mg po qd restarted (home med) -home med renexa (ranolazine) 500 mg XL po qd, not in pharmacy. will address anginal pain if present (not currently endorsed, EKG NSR, trops wnl) #Afib home med of eliquis -restarted eliquis 5 mg po bid #TBili elevation #AST elevation, improved Patient TBili 2.4, AST 81 on admission No liver/gall bladder pathology history Liver US unremarkable Tbili downtrending, AST still mildly elevated -ctm labs #hypokalemia #hypophosphatemia Potassium 3.3 on admission -repleted -will continue to monitor and replete e-lytes as necessary #Anemia, normocytic Patient hgb 12.4 on admission hgb 10 today 2/2 3L fluids yesterday -monitor for s/s bleeding #Thrombocytopenia Plateletes 103 on admission -will monitor for s/s bleeding #BNP elevation BNP 141 on admission Likely reactive from pneumonia #insomnia patient altered, will address with improved mental status #BPH? moderate prostatomegaly found on ct ap -follow up outpatient with pcp #Osteopenia Patient found with advanced degenerative disc disease L4-S1 -follow up outpatient with pcp Hospital Management: Disposition: Tele - sepsis PNA Diet: Dysphagia 3 GI Prophylaxis: Protonix 40 mg IV BID Bowel Prophylaxis: none Crane: Yes, placed on admission DVT Prophylaxis: Eliquis 5 mg po bid CODE STATUS: full code Patient plan of care was discussed with the attending physician, Dr. Servin & senior resident Dr. Raffi Jang MD PGY-1 Attending Provider Attestation/Addendum I have examined the patient, reviewed labs and imaging findings, discussed the case with the resident(s), and reviewed entered orders. I agree with the plan of care as outlined in this note. Dr. Malathi MD
[2025-09-28] MEDS: guaiFENesin SYRUP 200 MG/10 ML UDC 100 MG PO ×3 (12:35→21:19)
[2025-09-28] MEDS: INSULIN DEGLUDEC 5 UNIT/0.05 ML (PER 5 UNITS) 15 UNIT SC (20:00)
[2025-09-28] MEDS: ATORVASTATIN CALCIUM 20 MG TABLET 80 MG PO (21:20)
[2025-09-29] VITALS (16 sets, daily range): BP systolic 121–180; BP diastolic 59–89; PULSE 78–114; RESP 16–29; TEMP 36.1–37.3; O2SAT 86–100; BMI 25.4
[2025-09-29] MEDS: INSULIN LISPRO (AdmeLOG) 1 UNIT/0.01 ML UNIT SC (00:24)
--- NOTE | 2025-09-29 05:03 | XR_ITS ---
EXAMINATION: AP chest single view TECHNIQUE: AP portable upright chest single view Date and time: September 29, 2025, 0537 hours INDICATIONS: Hypoxia, increasing O2 requirements today FINDINGS: Comparison September 25, 2025 Worsening bibasilar pneumonia as well as new pneumonia in the left upper lobe Mild to moderate associated heart failure with cardiomegaly vascular congestion perihilar edema Severe osteopenia IMPRESSION: Worsening bilateral pneumonia Mild to moderate associated heart failure
[2025-09-29] MEDS: ALBUTEROL/IPRATROPIUM (Duoneb) RT SOL 3 ML NEBU INH (05:19)
[2025-09-29 05:34] LABS: Base Excess 8 (-3-3); HCO3 32 mEq/L (20-26); Inspired Oxygen, FIO2 21 %; O2 Saturation 101 % (91-98); PCO2 43 mmHg (32.0-48.0); PO2 361 mmHg (83-108); pH, Arterial 7.48 (7.35-7.45)
[2025-09-29 05:35] LABS: Allen Test Performed/OK; Puncture Site Right Radial
[2025-09-29] MEDS: guaiFENesin SYRUP 200 MG/10 ML UDC 100 MG PO ×4 (05:47→21:07)
[2025-09-29] MEDS: PIPER/TAZO 3.375 GM PREMIX 3.375 GM/50 ML BAG IV ×3 (05:48→21:07)
[2025-09-29 06:19] LABS: Basophils # (Auto) 0.0 Thou/mm3 (0.0-0.2); Basophils % (Auto) 0 % (0-2.5); Eosinophils # (Auto) 0.0 Thou/mm3 (0.0-0.5); Eosinophils % (Auto) 0 % (0-10); Hematocrit 29.7 % (41.0-53.0); Hemoglobin 9.5 g/dL (13.5-16.0); Immature Granulocytes Auto 0.04 Thou/mm3 (0.00-0.00); Lymphocytes # (Auto) 0.7 Thou/mm3 (1.0-4.8); Lymphocytes % (Auto) 10 % (10-50); Mean Corpuscular HGB Conc 32.0 g/dl (31.0-37.0); Mean Corpuscular Hemoglobin 26.7 pg (25.0-35.0); Mean Corpuscular Volume 83 fL (80-100); Monocytes # (Auto) 0.5 Thou/mm3 (0.0-0.8); Monocytes % (Auto) 7 % (0-12); Neutrophils # (Auto) 5.7 Thou/mm3 (1.8-7.7); Neutrophils % (Auto) 82 % (37-80); Nucleated Red Blood Cell # 0.00 Thou/mm3 (0.00-0.00); Nucleated Red Blood Cell % 0 /100 WBC (0); Platelet Count 191 Thou/mm3 (140-440); RDW Standard Deviation 43.0 fL (35.1-43.9); Red Blood Count 3.56 Miln/mm3 (4.50-5.90); White Blood Count 6.9 Thou/mm3 (3.8-10.6)
[2025-09-29 06:45] LABS: Alanine Aminotransferase 20 U/L (10-49); Albumin, Serum 3.8 gm/dL (3.4-4.8); Albumin/Globulin Ratio 1.4 (1.2-2.2); Alkaline Phosphatase 63 U/L (46-116); Anion Gap 12 (7-16); Aspartate Amino Transferase 19 U/L (0-34); BUN/Creatinine Ratio 12 Ratio (12-20); Bilirubin,Total 2.1 mg/dL (0.3-1.2); Blood Urea Nitrogen 11 mg/dL (9-23); Calcium 8.9 mg/dL (8.3-10.6); Calcium (Corrected) 9.1 mg/dL (8.5-10.1); Carbon Dioxide 30.4 mMol/L (20.0-31.0); Chloride 104 mMol/L (98-107); Creatinine (Component) 0.9 mg/dL (0.6-1.3); Estimated Creatinine Clearance 83.8 mL/min (>60); Globulin 2.7 gm/dL (2.3-3.5); Glucose 167 mg/dL (74-106); Magnesium 1.8 mg/dL (1.6-2.6); Osmolality,Calculated 293 (275-295); Phosphorous 3.0 mg/dL (2.4-5.1); Potassium 3.2 mMol/L (3.4-5.1); Sodium 146 mMol/L (136-145); Total Protein 6.5 gm/dL (5.7-8.2); eGFR > 60 See Note
[2025-09-29] MEDS: NAPH,KPH MBDB 1 PACKET (1.5 GM) PO ×2 (08:58→16:44)
[2025-09-29] MEDS: POTASSIUM CHL 10 mEq IVPB 10 MEQ/100 ML BAG 100 MEQ IV ×4 (09:00→13:05)
[2025-09-29] MEDS: METOPROLOL SUCCINATE XL 25 MG TABCR PO (09:04)
[2025-09-29] MEDS: APIXABAN 2.5 MG TABLET 5 MG PO ×2 (09:04→21:07)
[2025-09-29] MEDS: CLOPIDOGREL BISULFATE 75 MG TABLET PO (09:06)
[2025-09-29] MEDS: AMYLASE/LIPASE/PROTEASE CAPSULE (Pancreaze) 1 CAP PO (09:06)
[2025-09-29] MEDS: PANTOPRAZOLE 40 MG TABLET PO ×2 (09:06→21:06)
[2025-09-29] MEDS: DOXYCYCLINE INJ 100 MG in SODIUM CHLORIDE 0.9% (POP) 100 ML IV (09:07)
[2025-09-29] MEDS: FUROSEMIDE INJ 10 MG/ML 4ML VIAL 40 MG IVP (09:33)
[2025-09-29 09:55] LABS: Base Excess 8 (-3-3); HCO3 32 mEq/L (20-26); Inspired Oxygen, FIO2 100 %; O2 Saturation 97 % (91-98); PCO2 39 mmHg (32.0-48.0); PO2 75 mmHg (83-108); pH, Arterial 7.52 (7.35-7.45)
[2025-09-29 09:57] LABS: Allen Test Performed/OK; Puncture Site Left Radial
--- NOTE | 2025-09-29 10:23 | ESPR_ITS ---
<Statement entered by Kiran Lowery MD - 09/29/25 15:46> Patient was seen and examined at bedside. Overnight patient oxygen requirement increased and maxed on high flow 40/100 his ABG showed supersaturated oxygen, pulse oximetry showed oxygenation of 80% when we go down on the high flow nasal cannula. Repeat chest x-ray showed worsening infiltrate. Will give the patient 1 dose of Lasix and will continue to monitor. We spoke with the POA Babak regarding the diagnosis of Parkinson's however he reported that he has no idea about previous diagnosis of Parkinson's disease. We also ordered for the patient speech evaluation to rule out the possible microaspiration and we added for the patient vancomycin. So far his fluid balance is +3 L will continue to monitor tomorrow and will see if the patient's condition does not improve we will give another dose of Lasix. - Patient's plan and care discussed with my attending, Dr. Malathi Lowery MD Internal Medicine PGY-3 Documentation for date of: 09/29/25 Subjective Subjective Interval history: Overnight patient desaturated oxygen saturations to the 80s, high flow nasal cannula was maxed out with respiratory respiratory rate at 26, DuoNeb was given and reportedly symptomatically helped; chest x-ray was taken and noted worsening pneumonia, ABG was taken and showed elevated heart oxygen levels. Patient had a mild fever overnight at 100.8 ?F. Patient has not been eating well for last 2 days, is making good urine, but continues to have large loose stools. Patient's power of managing attorney Neymar Cardenas was contacted and informed of the patient's status, he stated that he did not know patient was on hospice; states he is willing to make medical decisions if patient cannot. Speech therapy was referred, as stated he is not in appropriate condition for p.o. intake given high flow nasal cannula and respiratory status. Patient's doxycycline switched back to vancomycin, continuing Zosyn Exam Vital Signs Temp Pulse Resp BP Pulse Ox O2 Del Method O2 Flow Rate 97.0 F 79 25 H 121/89 H 100 High Flow Nasal Cannula 40 09/29/25 08:00 09/29/25 09:33 09/29/25 08:01 09/29/25 09:33 09/29/25 08:01 09/29/25 08:00 09/29/25 08:01 FiO2 100 09/29/25 08:01 Narrative Exam General: No acute distress; A&Ox3; resting in bed Skin: Warm, dry, intact, no obvious rash. HENT: NCAT, EOMI/PERRL, not icteric. External ears normal. No rhinorrhea. Dry mucous membranes Cardiovascular: Regular rate and rhythm, no murmur, +S1/S2. Respiratory: Coarse lung sounds bilaterally, HFNC in place GI: Soft, nontender, non-distended. No guarding or rebound tenderness. : No suprapubic tenderness. No flank tenderness bilaterally. Crane in place Extremities: trace pitting edema, no cyanosis, no clubbing. Extremity pulses present Neuro: Grossly nonfocal. Moving all 4 extremities. CN not formally tested but appear grossly intact. Psychiatric: appropriate affect, cooperative Objective Labs 09/30/25 05:25 09/29/25 05:45 Labs: Laboratory Results - last 24 hr 09/29/25 09/29/25 09/29/25 05:29 05:45 09:44 WBC 6.9 RBC 3.56 L Hgb 9.5 L Hct 29.7 L MCV 83 MCH 26.7 MCHC 32.0 RDW Std Deviation 43.0 Plt Count 191 D Neut % (Auto) 82 H Lymph % (Auto) 10 [place] % (Auto) 7 Eos % (Auto) 0 Baso % (Auto) 0 Neut # (Auto) 5.7 Lymph # (Auto) 0.7 L [place] # (Auto) 0.5 Eos # (Auto) 0.0 Baso # (Auto) 0.0 Immature Gran # (Auto) 0.04 H Absolute Nucleated RBC 0.00 Immature Gran % 1 H Nucleated RBC % 0 Puncture Site Right Radial Left Radial ABG pH 7.48 H 7.52 H ABG pCO2 43 39 ABG pO2 361 H 75 L D ABG HCO3 32 H 32 H ABG O2 Saturation 101 H 97 ABG Base Excess 8 H 8 H FiO2 21 100 Sodium 146 H Potassium 3.2 L Chloride 104 Carbon Dioxide 30.4 Anion Gap 12 BUN 11 Creatinine 0.9 Estim Creat Clear Calc 83.8 eGFR > 60 BUN/Creatinine Ratio 12 Glucose 167 H Calculated Osmolality 293 Calcium 8.9 Corrected Calcium 9.1 Phosphorus 3.0 Magnesium 1.8 Total Bilirubin 2.1 H AST 19 ALT 20 Alkaline Phosphatase 63 Total Protein 6.5 Albumin 3.8 Globulin 2.7 Albumin/Globulin Ratio 1.4 ABG Interpretation ABG results: 09/24/25 09/29/25 09/29/25 23:16 05:29 09:44 ABG pH 7.40 7.48 H 7.52 H ABG pCO2 45 43 39 ABG pO2 66 L 361 H 75 L D ABG HCO3 28 H 32 H 32 H ABG O2 Saturation 94 101 H 97 ABG Base Excess 3 8 H 8 H Quality Measures Quality Measures VTE prophylaxis Advance care planning discussed with:: patient and other (Neymar Cardenas - power of managing attorney) Assessment & Plan Assessment Current Active Medications: Generic Name Dose Route Start Last Admin Trade Name Freq PRN Reason Stop Dose Admin Acetaminophen 650 mg 09/24/25 13:29 Acetaminophen 325 Mg Tablet PO 10/24/25 13:28 Q6H PRN Fever >100.5 Albuterol/Ipratropium 3 ml 09/27/25 13:49 Albuterol/Ipratropium (Duoneb) Rt Adilene 3 Ml Nebu INH 10/26/25 06:59 Q4HRRT PRN shortness of breath Apixaban 5 mg 09/24/25 21:00 09/29/25 09:04 Apixaban 2.5 Mg Tablet PO 10/24/25 20:59 5 mg BID DEYANIRA Administration Atorvastatin Calcium 80 mg 09/24/25 21:00 09/28/25 21:20 Atorvastatin Calcium 20 Mg Tablet PO 10/24/25 20:59 80 mg HS DEYANIRA Administration Clopidogrel Bisulfate 75 mg 09/25/25 09:00 09/29/25 09:06 Clopidogrel Bisulfate 75 Mg Tablet PO 10/25/25 08:59 75 mg QDAY DEYANIRA Administration Dextrose 25 ml 09/24/25 14:56 09/24/25 22:41 Dextrose 50%-Water Inj 50 Ml Syringe IV 10/24/25 14:55 25 ml Q15MIN PRN Administration BG 50-70 responsive npo pt Dextrose 50 ml 09/24/25 14:56 Dextrose 50%-Water Inj 50 Ml Syringe IV 10/24/25 14:55 Q15MIN PRN BG <50 OR BG <70 & pt unresponsive Glucagon 1 mg 09/24/25 14:56 Glucagon Inj 1 Mg Vial IM Q15MIN PRN BG <70, and no IV access Guaifenesin 100 mg 09/27/25 21:00 09/29/25 05:47 Guaifenesin Syrup 200 Mg/10 Ml Udc PO 10/27/25 20:59 100 mg QID DEYANIRA Administration Protocol Dextrose/Sodium Chloride 1,000 mls @ 80 mls/hr 09/26/25 11:15 09/29/25 05:49 D5-Ns IV 10/26/25 11:14 Not Given .[id number] DEYANIRA Piperacillin/Tazobactam/Dextrose 3.375 gm in 50 mls @ 12.5 mls/hr 09/26/25 14:00 09/29/25 05:48 Zosyn IV 10/03/25 13:59 12.5 mls/hr Q8HR DEYANIRA Administration Protocol Potassium Chloride 10 meq in 100 mls @ 100 mls/hr 09/29/25 08:13 09/29/25 09:00 Kcl Ivpb IV 09/29/25 12:12 100 mls/hr Q1H DEYANIRA Administration Vancomycin HCl 200 mls @ 120 mls/hr 09/29/25 10:15 Vancomycin/Water 1gm Ivpb IV 10/06/25 10:14 BID@1000,2200 [facility] Protocol Insulin Degludec 15 unit 09/28/25 19:00 09/28/25 20:00 Insulin Degludec 5 Unit/0.05 Ml (Per 5 Units) SC 10/28/25 18:59 15 unit QDAY@1900 DEYANIRA Administration Insulin Human Lispro 0 unit 09/27/25 18:40 09/29/25 05:48 Insulin Lispro (Admelog) 1 Unit/0.01 Ml Unit SC 10/26/25 13:33 Not Given Q6HR [facility] Protocol Labetalol HCl 10 mg 09/24/25 16:02 09/24/25 16:45 Labetalol Inj 5 Mg/Ml Vial 4 Ml IVP 10/24/25 16:14 10 mg Q10MIN PRN Administration Hypertension Metoprolol Succinate 25 mg 09/25/25 09:00 09/29/25 09:04 Metoprolol Succinate Xl 25 Mg Tabcr PO 10/25/25 08:59 25 mg QDAY DEYANIRA Administration Ondansetron HCl 4 mg 09/24/25 13:29 Ondansetron Inj 2 Mg/Ml Inj 2 Ml IVP 10/24/25 13:28 Q6H PRN NAUSEA OR VOMITING Protocol Pancreatin 1 cap 09/26/25 14:30 09/29/25 09:06 Amylase/Lipase/Protease Capsule (Pancreaze) PO 10/26/25 14:29 1 cap QDAY DEYANIRA Administration Pantoprazole Sodium 40 mg 09/26/25 21:00 09/29/25 09:06 Pantoprazole 40 Mg Tablet PO 10/26/25 20:59 40 mg BID DEYANIRA Administration Protocol Pharmacy Consult 1 each 09/29/25 10:15 Vancomycin Pharmacy To Dose 1 Each Each IV 10/29/25 10:14 QDAY PRN PROTOCOL Potassium Phos/Sodium Phos 1 packet 09/28/25 08:00 09/29/25 08:58 Naph,[facility] Mbdb 1 Packet (1.5 Gm) PO 10/28/25 07:59 1 packet BIDWM DEYANIRA Administration Plan Patient is a 77-year-old male with past medical history of (per nurse at [facility]) CAD, A-fib, hypertension, CKD, type 2 diabetes, dysphagia, parkinsons?, depression, anxiety who is brought in by ambulance from [facility] for fever and hypoxia. Found to have significant bibasilar pneumonia. Admitted for sepsis pneumonia. FTH diarrhea -> given pancreas enzymes, improving. Still requiring HFNC #AHRF #Significant bibasilar pneumonia #Sepsis Suspecting community acquired pneumonia. Less likely bacterial with normal wbc and procal of 0.16. Patient lethargic, not able to give history. Baseline reported as A&Ox3; Tmax 104 initially Could be due to drugs with UTOX positive for opiates and benzos (home meds of xanax & norco/morphine prn) vs less likely metabolic with cmp not too remarkable. Patient reported to be on hospice & full code On HFNC; CT AP showed signficant bibasilar pneumonia PSI score of 115 points, Risk Class 4, 8.2%-9.3% 30-day mortality Given 3L total bolus; 09/25 CXR showed worsening bibasilar pneumonia MRSA positive, urine cx negative, cocci negative -Vancomycin/Zosyn -Continue HFNC, wean as tolerated -BIPAP ordered prn if HFNC not enough -Blood ng48 hrs -Covid, legionella, influenza a/b ordered #Diarrhea, improving Patient endorses diarrhea since admission Patient not tolerating foods very well, states it goes through him anything he eats/drinks Restarted his pancreas enzymes Loose stools continued, but reported as better formed PO intake improving 09/27 -consulted dietitian #T2DM - insulin dependent home meds of degludec 21 u BID and aspart 4u with meal Patient glucose 61, was given dextrose, normalized A1c 7.9 on 09/25/2025 -Holding degludec due to not passing speech eval due to HFNC - degludec 7 u --> 15 units q hs. -insulin sliding scale -hypoglycemic protocol in place -glucose checks q6hr #CAD #HTN Patient reported to have had NSTEMI in the last 6 months. Chart review states stent placed BP 213/84 on admission, restarted home meds below Echo 09/25 EF 60-65% -atorvastatin 80 mg q hs restarted (home med) -metoprolol 25 mg po qd restarted (home med) -plavix 75 mg po qd restarted (home med) -home med renexa (ranolazine) 500 mg XL po qd, not in pharmacy. will address anginal pain if present (not currently endorsed, EKG NSR, trops wnl) #Afib home med of eliquis -restarted eliquis 5 mg po bid -rate control with metoprolol (above) #TBili elevation #AST elevation, improved Patient TBili 2.4, AST 81 on admission No liver/gall bladder pathology history Liver US unremarkable Tbili plateauing around 2, AST still mildly elevated -ctm labs #hypokalemia #hypophosphatemia Potassium 3.3 on admission -repleted -will continue to monitor and replete e-lytes as necessary #Anemia, normocytic Patient hgb 12.4 on admission hgb 10 today 2/2 3L fluids yesterday -monitor for s/s bleeding #Thrombocytopenia, improved Plateletes 103 on admission -will monitor for s/s bleeding #BNP elevation BNP 141 on admission Likely reactive from pneumonia #BPH? moderate prostatomegaly found on ct ap -follow up outpatient with pcp #Osteopenia Patient found with advanced degenerative disc disease L4-S1 -follow up outpatient with pcp Hospital Management: Disposition: Tele - sepsis PNA Diet: NPO GI Prophylaxis: Protonix 40 mg IV BID Bowel Prophylaxis: none Crane: Yes, placed on admission DVT Prophylaxis: Eliquis 5 mg po bid CODE STATUS: full code Patient plan of care was discussed with the attending physician, Dr. Servin & senior resident Dr. Beverley Jnag MD PGY-1 Attending Provider Attestation/Addendum I have examined the patient, reviewed labs and imaging findings, discussed the case with the resident(s), and reviewed entered orders. I agree with the plan of care as outlined in this note. Dr. Malathi MD
--- NOTE | 2025-09-29 10:23 | PC.SS ---
Addendum entered by Kiarra Aleman 09/29/25 15:12: SS received a call from Neymar Cardenas to state that he is the POA who will try and bring in the paperwork. He states he has not spoken to patient for about a year. He was not aware that patient signed himself for hospice services. Neymar confirmed patient does not have any family. He is willing to make medical decisions if patient cannot. He states he's the only person in patient's life. Updated physician team. Original Note: follow up note: Patient is from [facility]. Currently on high flow 02. Patient is a full code and was previously on service with [facility]. SS contacted [facility] who confirmed patient was on service since . He signed his own consents. No next of kin. Physician team found a contact number for a Neymar Cardenas @ [phone]. SS left [facility] [place] to verify history.
[2025-09-29] MEDS: VANCOMYCIN/WATER 1GM IVPB 200 ML IV ×2 (10:51→21:07)
--- NOTE | 2025-09-29 14:47 | PCS.ST ---
Swallow Re-evaluation limited. See notes for details. Pt is not appropriate for PO diet at this time d/t high flow rate and high O2 needs. ST will see again in AM.
[2025-09-29] MEDS: ATORVASTATIN CALCIUM 20 MG TABLET 80 MG PO (21:06)
[2025-09-30] VITALS (15 sets, daily range): BP systolic 106–170; BP diastolic 51–79; PULSE 46–105; RESP 12–28; TEMP 36.1–36.8; O2SAT 94–100
[2025-09-30] MEDS: PIPER/TAZO 3.375 GM PREMIX 3.375 GM/50 ML BAG IV ×3 (05:05→21:02)
[2025-09-30] MEDS: guaiFENesin SYRUP 200 MG/10 ML UDC 100 MG PO (05:05)
[2025-09-30] MEDS: INSULIN LISPRO (AdmeLOG) 1 UNIT/0.01 ML UNIT SC ×3 (05:10→23:42)
[2025-09-30 06:35] LABS: Basophils # (Auto) 0.0 Thou/mm3 (0.0-0.2); Basophils % (Auto) 0 % (0-2.5); Eosinophils # (Auto) 0.0 Thou/mm3 (0.0-0.5); Eosinophils % (Auto) 0 % (0-10); Hematocrit 28.2 % (41.0-53.0); Hemoglobin 9.0 g/dL (13.5-16.0); Immature Granulocytes Auto 0.05 Thou/mm3 (0.00-0.00); Lymphocytes # (Auto) 0.5 Thou/mm3 (1.0-4.8); Lymphocytes % (Auto) 6 % (10-50); Mean Corpuscular HGB Conc 31.9 g/dl (31.0-37.0); Mean Corpuscular Hemoglobin 26.7 pg (25.0-35.0); Mean Corpuscular Volume 84 fL (80-100); Monocytes # (Auto) 0.5 Thou/mm3 (0.0-0.8); Monocytes % (Auto) 8 % (0-12); Neutrophils # (Auto) 6.0 Thou/mm3 (1.8-7.7); Neutrophils % (Auto) 85 % (37-80); Nucleated Red Blood Cell # 0.00 Thou/mm3 (0.00-0.00); Nucleated Red Blood Cell % 0 /100 WBC (0); Platelet Count 216 Thou/mm3 (140-440); RDW Standard Deviation 43.2 fL (35.1-43.9); Red Blood Count 3.37 Miln/mm3 (4.50-5.90); White Blood Count 7.0 Thou/mm3 (3.8-10.6)
--- NOTE | 2025-09-30 07:30 | XR_ITS ---
EXAMINATION: AP chest single view TECHNIQUE: AP portable upright chest single view Date and time: September 30, 2025, 0930 hours, comparison September 29, 2025 INDICATIONS: Acute hypoxic respiratory failure this week. FINDINGS: Improvement with clearing of the right base pneumonia Significant left base pneumonia remains Mildly enlarged cardiac contour with prominent vascular congestion IMPRESSION: Right base pneumonia has cleared Significant ammonia left base remains
--- NOTE | 2025-09-30 08:42 | ESPR_ITS ---
<Statement entered by Travis Nugent MD - 09/30/25 08:52> No acute overnight events. Seen and examined at bedside and patient appeared sleepy but able to hold conversation. Continues to be on HFNC but no longer maxed out, currently at 33/65, afebrile, but BP slightly elevated at 170/79 with as needed labetalol. CBC unremarkable. CHEM panel pending, will follow-up. Evaluated by speech therapy yesterday and stated that patient is not appropriate for p.o. diet at this time due to high O2 flow rate and high O2 needs and will follow-up in the morning. Currently on Vanco/Zosyn for pneumonia, blood and urine cultures negative, and has received total of 7 days of IV antibiotics. ----- Note reviewed and agree with care plan as documented. Please refer to the note below for further details. Plan discussed with attending physician Dr. Malathi Nugent MD PGY-2 Internal Medicine Documentation for date of: 09/30/25 Subjective Subjective Interval history: NAEO. Patient continues to need HFNC. Today patient's mentation is better and is opening his eyes more. Repeat chest xr showed r-base pna has cleared, still significant pna of the left base. Patient failed speech swallow eval this morning, will follow up repeat. Continuing iv antibiotics. Patient afebrile with bp 170s, has prn labetalol, will keep an eye on it. Exam Vital Signs Temp Pulse Resp BP Pulse Ox O2 Del Method O2 Flow Rate 98.1 F 93 16 170/79 H 100 High Flow Nasal Cannula 33 09/30/25 08:00 09/30/25 08:00 09/30/25 08:00 09/30/25 08:00 09/30/25 08:00 09/30/25 08:00 09/30/25 08:00 FiO2 65 09/30/25 08:00 Narrative Exam General: No acute distress; A&Ox3; resting in bed Skin: Warm, dry, intact, no obvious rash. HENT: NCAT, EOMI/PERRL, not icteric. External ears normal. No rhinorrhea. Dry mucous membranes Cardiovascular: Regular rate and rhythm, no murmur, +S1/S2. Respiratory: Coarse lung sounds bilaterally, HFNC in place GI: Soft, nontender, non-distended. No guarding or rebound tenderness. : No suprapubic tenderness. No flank tenderness bilaterally. Crane in place Extremities: trace pitting edema, no cyanosis, no clubbing. Extremity pulses present Neuro: Grossly nonfocal. Moving all 4 extremities. CN not formally tested but appear grossly intact. Psychiatric: appropriate affect, cooperative Objective Labs 10/01/25 06:05 10/01/25 06:05 Labs: Laboratory Results - last 24 hr 09/29/25 09/30/25 09:44 05:25 WBC 7.0 RBC 3.37 L Hgb 9.0 L Hct 28.2 L MCV 84 MCH 26.7 MCHC 31.9 RDW Std Deviation 43.2 Plt Count 216 Neut % (Auto) 85 H Lymph % (Auto) 6 L [place] % (Auto) 8 Eos % (Auto) 0 Baso % (Auto) 0 Neut # (Auto) 6.0 Lymph # (Auto) 0.5 L [place] # (Auto) 0.5 Eos # (Auto) 0.0 Baso # (Auto) 0.0 Immature Gran # (Auto) 0.05 H Absolute Nucleated RBC 0.00 Immature Gran % 1 H Nucleated RBC % 0 Puncture Site Left Radial ABG pH 7.52 H ABG pCO2 39 ABG pO2 75 L D ABG HCO3 32 H ABG O2 Saturation 97 ABG Base Excess 8 H FiO2 100 ABG Interpretation ABG results: 09/24/25 09/29/25 09/29/25 23:16 05:29 09:44 ABG pH 7.40 7.48 H 7.52 H ABG pCO2 45 43 39 ABG pO2 66 L 361 H 75 L D ABG HCO3 28 H 32 H 32 H ABG O2 Saturation 94 101 H 97 ABG Base Excess 3 8 H 8 H Quality Measures Quality Measures VTE prophylaxis Advance care planning discussed with:: patient Assessment & Plan Assessment Current Active Medications: Generic Name Dose Route Start Last Admin Trade Name Freq PRN Reason Stop Dose Admin Acetaminophen 650 mg 09/24/25 13:29 Acetaminophen 325 Mg Tablet PO 10/24/25 13:28 Q6H PRN Fever >100.5 Albuterol/Ipratropium 3 ml 09/27/25 13:49 Albuterol/Ipratropium (Duoneb) Rt Adilene 3 Ml Nebu INH 10/26/25 06:59 Q4HRRT PRN shortness of breath Apixaban 5 mg 09/24/25 21:00 09/29/25 21:07 Apixaban 2.5 Mg Tablet PO 10/24/25 20:59 5 mg BID DEYANIRA Administration Atorvastatin Calcium 80 mg 09/24/25 21:00 09/29/25 21:06 Atorvastatin Calcium 20 Mg Tablet PO 10/24/25 20:59 80 mg HS DEYANIRA Administration Clopidogrel Bisulfate 75 mg 09/25/25 09:00 09/29/25 09:06 Clopidogrel Bisulfate 75 Mg Tablet PO 10/25/25 08:59 75 mg QDAY DEYANIRA Administration Dextrose 25 ml 09/24/25 14:56 09/24/25 22:41 Dextrose 50%-Water Inj 50 Ml Syringe IV 10/24/25 14:55 25 ml Q15MIN PRN Administration BG 50-70 responsive npo pt Dextrose 50 ml 09/24/25 14:56 Dextrose 50%-Water Inj 50 Ml Syringe IV 10/24/25 14:55 Q15MIN PRN BG <50 OR BG <70 & pt unresponsive Glucagon 1 mg 09/24/25 14:56 Glucagon Inj 1 Mg Vial IM Q15MIN PRN BG <70, and no IV access Guaifenesin 100 mg 09/27/25 21:00 09/30/25 05:05 Guaifenesin Syrup 200 Mg/10 Ml Udc PO 10/27/25 20:59 100 mg QID DEYANIRA Administration Protocol Dextrose/Sodium Chloride 1,000 mls @ 80 mls/hr 09/26/25 11:15 09/30/25 04:55 D5-Ns IV 10/26/25 11:14 Not Given .[id number] DEYANIRA Piperacillin/Tazobactam/Dextrose 3.375 gm in 50 mls @ 12.5 mls/hr 09/26/25 14:00 09/30/25 05:05 Zosyn IV 10/03/25 13:59 12.5 mls/hr Q8HR DEYANIRA Administration Protocol Vancomycin HCl 200 mls @ 120 mls/hr 09/29/25 10:15 09/29/25 21:07 Vancomycin/Water 1gm Ivpb IV 10/06/25 10:14 120 mls/hr BID@1000,2200 DEYANIRA Administration Protocol Insulin Degludec 15 unit 09/28/25 19:00 09/28/25 20:00 Insulin Degludec 5 Unit/0.05 Ml (Per 5 Units) SC 10/28/25 18:59 15 unit On Hold: 09/29/25 15:43 QDAY@1900 DEYANIRA Administration Insulin Human Lispro 0 unit 09/27/25 18:40 09/30/25 05:10 Insulin Lispro (Admelog) 1 Unit/0.01 Ml Unit SC 10/26/25 13:33 3 unit Q6HR DEYANIRA Administration Protocol Labetalol HCl 10 mg 09/24/25 16:02 09/24/25 16:45 Labetalol Inj 5 Mg/Ml Vial 4 Ml IVP 10/24/25 16:14 10 mg Q10MIN PRN Administration Hypertension Metoprolol Succinate 25 mg 09/25/25 09:00 09/29/25 09:04 Metoprolol Succinate Xl 25 Mg Tabcr PO 10/25/25 08:59 25 mg QDAY DEYANIRA Administration Ondansetron HCl 4 mg 09/24/25 13:29 Ondansetron Inj 2 Mg/Ml Inj 2 Ml IVP 10/24/25 13:28 Q6H PRN NAUSEA OR VOMITING Protocol Pancreatin 1 cap 09/26/25 14:30 09/29/25 09:06 Amylase/Lipase/Protease Capsule (Pancreaze) PO 10/26/25 14:29 1 cap QDAY DEYANIRA Administration Pantoprazole Sodium 40 mg 09/26/25 21:00 09/29/25 21:06 Pantoprazole 40 Mg Tablet PO 10/26/25 20:59 40 mg BID DEYANIRA Administration Protocol Pharmacy Consult 1 each 09/29/25 10:15 Vancomycin Pharmacy To Dose 1 Each Each IV 10/29/25 10:14 QDAY PRN PROTOCOL Potassium Phos/Sodium Phos 1 packet 09/28/25 08:00 09/29/25 16:44 [facility] Mbdb 1 Packet (1.5 Gm) PO 10/28/25 07:59 1 packet BIDWM DEYANIRA Administration Plan Patient is a 77-year-old male with past medical history of (per nurse at [facility]) CAD, A-fib, hypertension, CKD, type 2 diabetes, dysphagia, parkinsons?, depression, anxiety who is brought in by ambulance from [facility] for fever and hypoxia. Found to have significant bibasilar pneumonia. Admitted for sepsis pneumonia. FTH diarrhea -> given pancreas enzymes, improving. Still requiring HFNC #AHRF #Significant bibasilar pneumonia #Sepsis Suspecting community acquired pneumonia. Less likely bacterial with normal wbc and procal of 0.16. Patient lethargic, not able to give history. Baseline reported as A&Ox3; Tmax 104 initially Could be due to drugs with UTOX positive for opiates and benzos (home meds of xanax & norco/morphine prn) vs less likely metabolic with cmp not too remarkable. Patient reported to be on hospice & full code On HFNC; CT AP showed signficant bibasilar pneumonia PSI score of 115 points, Risk Class 4, 8.2%-9.3% 30-day mortality Given 3L total bolus; 09/25 CXR showed worsening bibasilar pneumonia MRSA positive, urine cx negative, cocci negative 09/30 chest xr showed r-base pna has cleared, still significant pna of the left base -Vancomycin/Zosyn -Continue HFNC, wean as tolerated -BIPAP ordered prn if HFNC not enough -Blood ng48 hrs -Covid, legionella, influenza a/b ordered #Diarrhea, improving Patient endorses diarrhea since admission Patient not tolerating foods very well, states it goes through him anything he eats/drinks Restarted his pancreas enzymes Loose stools continued, but reported as better formed -consulted dietitian #T2DM - insulin dependent home meds of degludec 21 u BID and aspart 4u with meal Patient glucose 61, was given dextrose, normalized A1c 7.9 on 09/25/2025 -Holding degludec due to not passing speech eval due to HFNC - degludec 7 u --> 15 units q hs. -insulin sliding scale -hypoglycemic protocol in place -glucose checks q6hr #CAD #HTN Patient reported to have had NSTEMI in the last 6 months. Chart review states stent placed BP 213/84 on admission, restarted home meds below Echo 09/25 EF 60-65% -atorvastatin 80 mg q hs restarted (home med) -metoprolol 25 mg po qd restarted (home med) -plavix 75 mg po qd restarted (home med) -home med renexa (ranolazine) 500 mg XL po qd, not in pharmacy. will address anginal pain if present (not currently endorsed, EKG NSR, trops wnl) #Afib home med of eliquis -restarted eliquis 5 mg po bid -rate control with metoprolol (above) #TBili elevation #transaminitis, improved Patient TBili 2.4, AST 81 on admission No liver/gall bladder pathology history Liver US unremarkable Tbili plateauing around 2, AST still mildly elevated -ctm labs #Anemia, normocytic Patient hgb 12.4 on admission hgb 10 today 2/2 3L fluids yesterday -monitor for s/s bleeding #Thrombocytopenia, improved Plateletes 103 on admission -will monitor for s/s bleeding #BNP elevation BNP 141 on admission Likely reactive from pneumonia #BPH? moderate prostatomegaly found on ct ap -follow up outpatient with pcp #Osteopenia Patient found with advanced degenerative disc disease L4-S1 -follow up outpatient with pcp #hypokalemia, RESOLVED #hypophosphatemia, RESOLVED Potassium 3.3 on admission -repleted -will continue to monitor and replete e-lytes as necessary Hospital Management: Disposition: Tele - sepsis PNA Diet: NPO GI Prophylaxis: Protonix 40 mg IV BID Bowel Prophylaxis: none Crane: Yes, placed on admission DVT Prophylaxis: Eliquis 5 mg po bid CODE STATUS: full code Patient plan of care was discussed with the attending physician, Dr. Servin & senior resident Dr. Raffi Jang MD PGY-1 Attending Provider Attestation/Addendum I have examined the patient, reviewed labs and imaging findings, discussed the case with the resident(s), and reviewed entered orders. I agree with the plan of care as outlined in this note. Dr. Malathi MD
[2025-09-30 09:10] LABS: Alanine Aminotransferase 18 U/L (10-49); Albumin, Serum 3.9 gm/dL (3.4-4.8); Albumin/Globulin Ratio 1.4 (1.2-2.2); Alkaline Phosphatase 64 U/L (46-116); Anion Gap 16 (7-16); Aspartate Amino Transferase 21 U/L (0-34); BUN/Creatinine Ratio 21 Ratio (12-20); Bilirubin,Total 1.9 mg/dL (0.3-1.2); Blood Urea Nitrogen 23 mg/dL (9-23); Calcium 8.9 mg/dL (8.3-10.6); Calcium (Corrected) 9.0 mg/dL (8.5-10.1); Carbon Dioxide 30.3 mMol/L (20.0-31.0); Chloride 101 mMol/L (98-107); Creatinine (Component) 1.1 mg/dL (0.6-1.3); Estimated Creatinine Clearance 68.6 mL/min (>60); Globulin 2.7 gm/dL (2.3-3.5); Glucose 212 mg/dL (74-106); Magnesium 2.0 mg/dL (1.6-2.6); Osmolality,Calculated 302 (275-295); Phosphorous 4.8 mg/dL (2.4-5.1); Potassium 3.6 mMol/L (3.4-5.1); Sodium 147 mMol/L (136-145); Total Protein 6.6 gm/dL (5.7-8.2); eGFR > 60 See Note
--- NOTE | 2025-09-30 09:28 | PC.NURSE ---
Notified Dr. Nugent pt worked with speech this am and reccommended to keep pt strick NPO. Notified MD cannot give morining meds
[2025-09-30] MEDS: VANCOMYCIN/WATER 1GM IVPB 200 ML IV ×2 (10:16→23:22)
[2025-09-30] MEDS: ENOXAPARIN SOD INJ 80 MG/0.8 ML SYRINGE SC (20:39)
--- NOTE | 2025-09-30 22:57 | PC.NURSE ---
This RN followed up on vanco trough level of pt that has not resulted after 2 hours since collected, lab stated they are having issues with senior quality engineer and once system is up they will be able to run test, per lab approximately 1 hour wait time, if the hour passes by give lab a call back. plan of care ongoing.
[2025-09-30 23:15] LABS: Vancomycin,Trough 13.6 mcg/mL (5.0-10.0)
[2025-10-01] VITALS (17 sets, daily range): BP systolic 135–178; BP diastolic 75–90; PULSE 63–103; RESP 8–96; TEMP 36.4–37.2; O2SAT 82–100
[2025-10-01] MEDS: INSULIN LISPRO (AdmeLOG) 1 UNIT/0.01 ML UNIT SC ×3 (05:36→23:34)
[2025-10-01] MEDS: PIPER/TAZO 3.375 GM PREMIX 3.375 GM/50 ML BAG IV ×3 (05:36→21:12)
[2025-10-01 06:16] LABS: Basophils # (Auto) 0.0 Thou/mm3 (0.0-0.2); Basophils % (Auto) 0 % (0-2.5); Eosinophils # (Auto) 0.0 Thou/mm3 (0.0-0.5); Eosinophils % (Auto) 0 % (0-10); Hematocrit 25.2 % (41.0-53.0); Immature Granulocytes Auto 0.03 Thou/mm3 (0.00-0.00); Lymphocytes # (Auto) 0.6 Thou/mm3 (1.0-4.8); Lymphocytes % (Auto) 10 % (10-50); Mean Corpuscular HGB Conc 31.7 g/dl (31.0-37.0); Mean Corpuscular Hemoglobin 26.7 pg (25.0-35.0); Mean Corpuscular Volume 84 fL (80-100); Monocytes # (Auto) 0.3 Thou/mm3 (0.0-0.8); Monocytes % (Auto) 5 % (0-12); Neutrophils # (Auto) 5.2 Thou/mm3 (1.8-7.7); Neutrophils % (Auto) 85 % (37-80); Nucleated Red Blood Cell # 0.00 Thou/mm3 (0.00-0.00); Nucleated Red Blood Cell % 0 /100 WBC (0); Platelet Count 238 Thou/mm3 (140-440); RDW Standard Deviation 43.8 fL (35.1-43.9); Red Blood Count 3.00 Miln/mm3 (4.50-5.90); White Blood Count 6.1 Thou/mm3 (3.8-10.6)
[2025-10-01 06:25] LABS: Hemoglobin 8.0 g/dL (13.5-16.0)
[2025-10-01 07:18] LABS: Alanine Aminotransferase 10 U/L (10-49); Albumin, Serum 3.5 gm/dL (3.4-4.8); Albumin/Globulin Ratio 1.2 (1.2-2.2); Alkaline Phosphatase 59 U/L (46-116); Anion Gap 12 (7-16); Aspartate Amino Transferase 22 U/L (0-34); BUN/Creatinine Ratio 26 Ratio (12-20); Bilirubin,Total 1.3 mg/dL (0.3-1.2); Blood Urea Nitrogen 26 mg/dL (9-23); Calcium 9.1 mg/dL (8.3-10.6); Calcium (Corrected) 9.5 mg/dL (8.5-10.1); Carbon Dioxide 31.6 mMol/L (20.0-31.0); Chloride 103 mMol/L (98-107); Creatinine (Component) 1.0 mg/dL (0.6-1.3); Estimated Creatinine Clearance 75.4 mL/min (>60); Globulin 2.9 gm/dL (2.3-3.5); Glucose 203 mg/dL (74-106); Magnesium 2.4 mg/dL (1.6-2.6); Osmolality,Calculated 303 (275-295); Phosphorous 3.1 mg/dL (2.4-5.1); Potassium 3.2 mMol/L (3.4-5.1); Sodium 147 mMol/L (136-145); Total Protein 6.4 gm/dL (5.7-8.2); eGFR > 60 See Note
--- NOTE | 2025-10-01 07:41 | XR_ITS ---
EXAMINATION: AP chest single view TECHNIQUE: AP portable upright chest single view Date and time: October 01, 2025, 0855 hours, comparison September 30, 2025 INDICATION: Hypoxia shortness of breath today. FINDINGS: Mild to moderate CHF with enlarged cardiac contour prominent vascular congestion and perihilar edema Significant pneumonia in the left lung IMPRESSION: Mild to moderate heart failure Significant left lung pneumonia
[2025-10-01] MEDS: POTASSIUM CHL 10 mEq IVPB 10 MEQ/100 ML BAG 100 MEQ IV ×4 (08:12→13:44)
[2025-10-01] MEDS: ENOXAPARIN SOD INJ 80 MG/0.8 ML SYRINGE SC ×2 (08:12→21:11)
[2025-10-01] MEDS: DEXTROSE 5%-0.45% NS 1,000 ML 100 ML IV (08:13)
--- NOTE | 2025-10-01 10:25 | XR_ITS ---
Examination: CT chest, without intravenous contrast. Sagittal and coronal 2-D reconstructions. Exam date and time: October 01, 2025, 1500 hours INDICATIONS: Chest pain shortness of breath hypoxia today CTDI:vol (mGy) 19 DLP: (mGycm) 612 Technique: Multiple 3.0 mm axial sections of the chest to been obtained. Bone and lung density settings are obtained. Sagittal and coronal 2-D reconstructions have been obtained. Low dose protocols were performed. One or more of the following dose reduction techniques were used; automated exposure control, adjustment of the mA and/or KV according to patient size, use of iterative reconstruction technique. Findings: Thoracic aortic calcification no aneurysmal dilatation. Pulmonary artery segments are not enlarged. Heavy calcification left anterior descending left circumflex coronary arteries Mild enlargement cardiac contour No paratracheal tracheobronchial or bronchopulmonary adenopathy Soft opacities throughout both lungs consistent with significant pneumonia No pleural fluid No visualized liver or splenic lesion Absent gallbladder Pancreas is not enlarged Significant osteopenia IMPRESSION: Diffuse significant bilateral pneumonia
[2025-10-01] MEDS: VANCOMYCIN/WATER 1GM IVPB 200 ML IV ×2 (10:39→21:12)
[2025-10-01 11:07] LABS: Base Excess 7 (-3-3); HCO3 33 mEq/L (20-26); O2 Saturation 99 % (91-98); PCO2 53 mmHg (32.0-48.0); PO2 117 mmHg (83-108); pH, Arterial 7.40 (7.35-7.45)
[2025-10-01 11:08] LABS: Inspired Oxygen, FIO2 55 %
[2025-10-01 11:11] LABS: Allen Test Performed/OK; Puncture Site Right Radial
--- NOTE | 2025-10-01 11:11 | PD.RESPRO ---
Documentation for date of: 10/01/25 Subjective Subjective Interval history: No acute overnight events. Seen and examined at bedside and patient currently maxed out on HFNC but does not appear to be in respiratory distress. Appears more tired compared to yesterday but was able to verbalize some responses. Upon evaluation later during rounds, continues to be on HFNC but now at 35/50. Repeat CXR shows significant pneumonia of the left base which is relatively unchanged from CXR yesterday. CBC shows slight drop in hemoglobin. CHEM panel showing hypotonic hyponatremia and hypokalemia. Exam Vital Signs Temp Pulse Resp BP Pulse Ox O2 Del Method O2 Flow Rate 97.8 F 82 29 H 151/75 H 100 High Flow Nasal Cannula 40 10/01/25 08:00 10/01/25 10:25 10/01/25 10:25 10/01/25 08:00 10/01/25 10:25 10/01/25 08:00 10/01/25 10:25 FiO2 60 10/01/25 10:25 Narrative Exam General: No acute distress; A&Ox3; resting in bed Skin: Warm, dry, intact, no obvious rash. HENT: NCAT, EOMI/PERRL, not icteric. External ears normal. No rhinorrhea. Dry mucous membranes Cardiovascular: Regular rate and rhythm, no murmur, +S1/S2. Respiratory: Coarse lung sounds bilaterally, HFNC in place GI: Soft, nontender, non-distended. No guarding or rebound tenderness. : No suprapubic tenderness. No flank tenderness bilaterally. Crane in place Extremities: trace pitting edema, no cyanosis, no clubbing. Extremity pulses present Neuro: Grossly nonfocal. Moving all 4 extremities. CN not formally tested but appear grossly intact. Psychiatric: appropriate affect, cooperative Objective Labs 10/02/25 05:19 10/02/25 05:19 Labs: Laboratory Results - last 24 hr 09/30/25 10/01/25 10/01/25 20:53 06:05 10:53 WBC 6.1 RBC 3.00 L Hgb 8.0 L Hct 25.2 L MCV 84 MCH 26.7 MCHC 31.7 RDW Std Deviation 43.8 Plt Count 238 Neut % (Auto) 85 H Lymph % (Auto) 10 [place] % (Auto) 5 Eos % (Auto) 0 Baso % (Auto) 0 Neut # (Auto) 5.2 Lymph # (Auto) 0.6 L [place] # (Auto) 0.3 Eos # (Auto) 0.0 Baso # (Auto) 0.0 Immature Gran # (Auto) 0.03 H Absolute Nucleated RBC 0.00 Immature Gran % 1 H Nucleated RBC % 0 Puncture Site Right Radial ABG pH 7.40 D ABG pCO2 53 H D ABG pO2 117 H D ABG HCO3 33 H ABG O2 Saturation 99 H ABG Base Excess 7 H FiO2 55 Sodium 147 H Potassium 3.2 L Chloride 103 Carbon Dioxide 31.6 H Anion Gap 12 BUN 26 H Creatinine 1.0 Estim Creat Clear Calc 75.4 eGFR > 60 BUN/Creatinine Ratio 26 H Glucose 203 H Calculated Osmolality 303 H Calcium 9.1 Corrected Calcium 9.5 Phosphorus 3.1 Magnesium 2.4 Total Bilirubin 1.3 H D AST 22 ALT 10 Alkaline Phosphatase 59 Total Protein 6.4 Albumin 3.5 Globulin 2.9 Albumin/Globulin Ratio 1.2 Vancomycin Trough 13.6 H ABG Interpretation ABG results: 09/24/25 09/29/25 09/29/25 23:16 05:29 09:44 ABG pH 7.40 7.48 H 7.52 H ABG pCO2 45 43 39 ABG pO2 66 L 361 H 75 L D ABG HCO3 28 H 32 H 32 H ABG O2 Saturation 94 101 H 97 ABG Base Excess 3 8 H 8 H 10/01/25 10:53 ABG pH 7.40 D ABG pCO2 53 H D ABG pO2 117 H D ABG HCO3 33 H ABG O2 Saturation 99 H ABG Base Excess 7 H Quality Measures Quality Measures VTE prophylaxis Advance care planning discussed with:: patient Assessment & Plan Assessment Current Active Medications: Generic Name Dose Route Start Last Admin Trade Name Freq PRN Reason Stop Dose Admin Acetaminophen 650 mg 09/24/25 13:29 Acetaminophen 325 Mg Tablet PO 10/24/25 13:28 Q6H PRN Fever >100.5 Acetylcysteine 3 ml 10/01/25 13:00 Acetylcysteine Rt [place]il[place] 10% 4 Ml Nebu INH 10/31/25 12:59 Q6HRRT DEYANIRA Albuterol/Ipratropium 3 ml 09/27/25 13:49 Albuterol/Ipratropium (Duoneb) Rt [place]il[place] 3 Ml Nebu INH 10/26/25 06:59 Q4HRRT PRN shortness of breath Apixaban 5 mg 09/24/25 21:00 09/30/25 09:32 Apixaban 2.5 Mg Tablet PO 10/24/25 20:59 Not Given On Hold: 09/30/25 19:55 BID DEYANIRA Atorvastatin Calcium 80 mg 09/24/25 21:00 09/30/25 20:15 Atorvastatin Calcium 20 Mg Tablet PO 10/24/25 20:59 Not Given HS DEYANIRA Clopidogrel Bisulfate 75 mg 09/25/25 09:00 10/01/25 08:08 Clopidogrel Bisulfate 75 Mg Tablet PO 10/25/25 08:59 Not Given QDAY DEYANIRA Dextrose 25 ml 09/24/25 14:56 09/24/25 22:41 Dextrose 50%-Water Inj 50 Ml Syringe IV 10/24/25 14:55 25 ml Q15MIN PRN Administration BG 50-70 responsive npo pt Dextrose 50 ml 09/24/25 14:56 Dextrose 50%-Water Inj 50 Ml Syringe IV 10/24/25 14:55 Q15MIN PRN BG <50 OR BG <70 & pt unresponsive Enoxaparin Sodium 80 mg 09/30/25 21:00 10/01/25 08:12 Enoxaparin Sod Inj 80 Mg/0.8 Ml Syringe SC 10/14/25 20:59 80 mg BID DEYANIRA Administration Glucagon 1 mg 09/24/25 14:56 Glucagon Inj 1 Mg Vial IM Q15MIN PRN BG <70, and no IV access Guaifenesin 100 mg 09/27/25 21:00 10/01/25 05:30 Guaifenesin Syrup 200 Mg/10 Ml Udc PO 10/27/25 20:59 Not Given QID DEYANIRA Protocol Piperacillin/Tazobactam/Dextrose 3.375 gm in 50 mls @ 12.5 mls/hr 09/26/25 14:00 10/01/25 05:36 Zosyn IV 10/03/25 13:59 12.5 mls/hr Q8HR DEYANIRA Administration Protocol Vancomycin HCl 200 mls @ 120 mls/hr 09/29/25 10:15 10/01/25 10:39 Vancomycin/Water 1gm Ivpb IV 10/06/25 10:14 120 mls/hr BID@1000,2200 DEYANIRA Administration Protocol Potassium Chloride 10 meq in 100 mls @ 100 mls/hr 10/01/25 07:37 10/01/25 08:12 Kcl Ivpb IV 10/01/25 11:36 100 mls/hr Q1H DEYANIRA Administration Insulin Degludec 15 unit 09/28/25 19:00 09/28/25 20:00 Insulin Degludec 5 Unit/0.05 Ml (Per 5 Units) SC 10/28/25 18:59 15 unit On Hold: 09/29/25 15:43 QDAY@1900 DEYANIRA Administration Insulin Human Lispro 0 unit 09/27/25 18:40 10/01/25 05:36 Insulin Lispro (Admelog) 1 Unit/0.01 Ml Unit SC 10/26/25 13:33 3 unit Q6HR DEYANIRA Administration Protocol Labetalol HCl 10 mg 09/24/25 16:02 09/24/25 16:45 Labetalol Inj 5 Mg/Ml Vial 4 Ml IVP 10/24/25 16:14 10 mg Q10MIN PRN Administration Hypertension Metoprolol Succinate 25 mg 09/25/25 09:00 10/01/25 08:08 Metoprolol Succinate Xl 25 Mg Tabcr PO 10/25/25 08:59 Not Given QDAY [facility] Ondansetron HCl 4 mg 09/24/25 13:29 Ondansetron Inj 2 Mg/Ml Inj 2 Ml IVP 10/24/25 13:28 Q6H PRN NAUSEA OR VOMITING Protocol Pancreatin 1 cap 09/26/25 14:30 10/01/25 08:08 Amylase/Lipase/Protease Capsule (Pancreaze) PO 10/26/25 14:29 Not Given QDAY [facility] Pantoprazole Sodium 40 mg 09/30/25 21:00 10/01/25 08:12 Pantoprazole Inj 40 Mg Vial IVP 10/30/25 20:59 40 mg BID DEYANIRA Administration Pharmacy Consult 1 each 09/29/25 10:15 Vancomycin Pharmacy To Dose 1 Each Each IV 10/29/25 10:14 QDAY PRN PROTOCOL Potassium Phos/Sodium Phos 1 packet 09/28/25 08:00 10/01/25 08:08 [facility] Mbdb 1 Packet (1.5 Gm) PO 10/28/25 07:59 Not Given BIDWM DEYANIRA Plan 77-year-old male with past medical history of (per nurse at [facility]) CAD, A-fib, on Eliquis hypertension, CKD, type 2 diabetes, Parkinson's disease on hospice, depression, anxiety who is admitted for AHRF secondary to pneumonia. #AHRF #Significant bibasilar pneumonia #? Aspiration pneumonia #Sepsis, resolved Initial CXR showed early heart failure but CT A/P showed significant bibasilar pneumonia. CBC normal and Pro-Brian normal. Spoke to nurse at patient's SNF and states that patient at baseline is ANO x 3. Apparently patient is on hospice with primary diagnosis of Parkinson's disease with dysphagia. Suspect that patient presenting with aspiration versus commune acquired pneumonia. ? Follow-up chest CT ? Vancomycin/Zosyn ? Continue HFNC, wean as tolerated ? BiPAP PRN ? Blood cultures negative, Cocci, COVID and influenza negative #Diarrhea, improving Patient endorses diarrhea since admission Patient not tolerating foods very well, states it goes through him anything he eats/drinks Restarted his pancreas enzymes Loose stools continued, but reported as better formed ? Consulted dietitian ? Speech therapy consulted, placed NPO #T2DM - insulin dependent home meds of degludec 21 u BID and aspart 4u with meal Patient glucose 61, was given dextrose, normalized A1c 7.9 on 09/25/2025 ? Holding degludec as patient currently NPO and sugars within range ? SSI ? Hypoglycemic protocol in place #CAD #HTN Patient reported to have had NSTEMI in the last 6 months. Chart review states stent placed BP 213/84 on admission, restarted home meds below Echo 09/25 EF 60-65% ? Atorvastatin 80 mg HS ? Plavix 75 mg daily #Atrial fibrillation, currently sinus rhythm Home med of eliquis ? Eliquis 5 mg twice daily ? Metoprolol succinate 25 mg daily #Hyperbilirubinemia, improving #Transaminitis, resolved Patient TBili 2.4, AST 81 on admission No liver/gall bladder pathology history Liver US unremarkable #Anemia, normocytic #Thrombocytopenia, improved ? Will monitor for s/s bleeding #? BPH Moderate prostatomegaly found on ct ap ? Follow up outpatient with PCP #Osteopenia Patient found with advanced degenerative disc disease L4-S1 ? Follow up outpatient with PCP #Hypokalemia, resolved #hypophosphatemia, resolved ? Will continue to monitor and replete as necessary Hospital management: Disposition: pending CT chest, on HFNC Fluids: DC'd D5/0.5 NS Diet: NPO per speech therapy Lines: PIV DVT prophylaxis: eliquis 5 mg BID GI prophylaxis: pantoprazole Crane: placed CODE STATUS: full code ----- Plan discussed with attending physician Dr. Malathi Nugent MD PGY-2 Internal Medicine Attending Provider Attestation/Addendum I have examined the patient, reviewed labs and imaging findings, discussed the case with the resident(s), and reviewed entered orders. I agree with the plan of care as outlined in this note. Dr. Malathi MD
[2025-10-01] MEDS: ACETYLCYSTEINE RT SOL 10% 4 ML NEBU 3 ML INH ×2 (13:01→18:26)
[2025-10-01] MEDS: ALBUTEROL/IPRATROPIUM (Duoneb) RT SOL 3 ML NEBU INH ×2 (13:01→18:26)
--- NOTE | 2025-10-01 15:51 | PC.SS ---
Rounding Note: Patient is on high-flow, IV abx and pending a CT of the chest. Patient failed speech, currently NPO. d/c plan: Per chart review, patient is from [facility]; Darby Mcdaniel was updated over the phone. Has DENISE Blackmon, . Previously on [facility].
[2025-10-02] VITALS (11 sets, daily range): BP systolic 127–185; BP diastolic 61–91; PULSE 88–128; RESP 12–35; TEMP 36.4–37.7; O2SAT 88–100
[2025-10-02] MEDS: ALBUTEROL/IPRATROPIUM (Duoneb) RT SOL 3 ML NEBU INH ×3 (00:19→13:15)
[2025-10-02] MEDS: ACETYLCYSTEINE RT SOL 10% 4 ML NEBU 3 ML INH ×4 (00:19→19:36)
[2025-10-02] MEDS: INSULIN LISPRO (AdmeLOG) 1 UNIT/0.01 ML UNIT SC ×4 (05:49→23:14)
[2025-10-02] MEDS: PIPER/TAZO 3.375 GM PREMIX 3.375 GM/50 ML BAG IV ×3 (05:49→21:29)
[2025-10-02 06:27] LABS: Basophils # (Auto) 0.0 Thou/mm3 (0.0-0.2); Basophils % (Auto) 0 % (0-2.5); Eosinophils # (Auto) 0.0 Thou/mm3 (0.0-0.5); Eosinophils % (Auto) 0 % (0-10); Hematocrit 25.7 % (41.0-53.0); Immature Granulocytes Auto 0.05 Thou/mm3 (0.00-0.00); Lymphocytes # (Auto) 0.6 Thou/mm3 (1.0-4.8); Lymphocytes % (Auto) 10 % (10-50); Mean Corpuscular HGB Conc 31.1 g/dl (31.0-37.0); Mean Corpuscular Hemoglobin 26.8 pg (25.0-35.0); Mean Corpuscular Volume 86 fL (80-100); Monocytes # (Auto) 0.3 Thou/mm3 (0.0-0.8); Monocytes % (Auto) 5 % (0-12); Neutrophils # (Auto) 5.3 Thou/mm3 (1.8-7.7); Neutrophils % (Auto) 84 % (37-80); Nucleated Red Blood Cell # 0.00 Thou/mm3 (0.00-0.00); Nucleated Red Blood Cell % 0 /100 WBC (0); Platelet Count 272 Thou/mm3 (140-440); RDW Standard Deviation 44.5 fL (35.1-43.9); Red Blood Count 2.99 Miln/mm3 (4.50-5.90); White Blood Count 6.4 Thou/mm3 (3.8-10.6)
[2025-10-02 06:33] LABS: Hemoglobin 8.0 g/dL (13.5-16.0)
[2025-10-02 06:58] LABS: Alanine Aminotransferase 16 U/L (10-49); Albumin, Serum 3.6 gm/dL (3.4-4.8); Albumin/Globulin Ratio 1.2 (1.2-2.2); Alkaline Phosphatase 59 U/L (46-116); Anion Gap 13 (7-16); Aspartate Amino Transferase < 8 U/L (0-34); BUN/Creatinine Ratio 27 Ratio (12-20); Bilirubin,Total 1.1 mg/dL (0.3-1.2); Blood Urea Nitrogen 27 mg/dL (9-23); Calcium 9.1 mg/dL (8.3-10.6); Calcium (Corrected) 9.4 mg/dL (8.5-10.1); Carbon Dioxide 31.7 mMol/L (20.0-31.0); Chloride 106 mMol/L (98-107); Creatinine (Component) 1.0 mg/dL (0.6-1.3); Estimated Creatinine Clearance 75.4 mL/min (>60); Globulin 3.1 gm/dL (2.3-3.5); Glucose 253 mg/dL (74-106); Magnesium 2.6 mg/dL (1.6-2.6); Osmolality,Calculated 313 (275-295); Phosphorous 2.8 mg/dL (2.4-5.1); Potassium 3.7 mMol/L (3.4-5.1); Sodium 151 mMol/L (136-145); Total Protein 6.7 gm/dL (5.7-8.2); eGFR > 60 See Note
[2025-10-02] MEDS: ENOXAPARIN SOD INJ 80 MG/0.8 ML SYRINGE SC ×2 (09:10→20:42)
--- NOTE | 2025-10-02 09:18 | PC.SS ---
rounding note: Patient remains on high flow 02. Patient from [facility]. Friend is listed as alternate medical decision maker. CT chest completed yesterday.
[2025-10-02] MEDS: DEXTROSE 5%-WATER 1,000 ML 100 ML IV (10:29)
[2025-10-02] MEDS: VANCOMYCIN/WATER 1GM IVPB 200 ML IV ×2 (10:55→22:26)
[2025-10-02] MEDS: INSULIN DEGLUDEC 5 UNIT/0.05 ML (PER 5 UNITS) SC (11:19)
--- NOTE | 2025-10-02 13:21 | PC.RT ---
Pt titrated to 25L 35%, o2 sats maintaining above 92%. No increased WOB or respiratory distress noted.
--- NOTE | 2025-10-02 13:45 | ESPR_ITS ---
<Statement entered by Farzad Boss MD - 10/02/25 17:55> Patient was seen and examined at the bedside. No acute overnight events reported. Patient is alert and oriented x 3. Patient did not pass swallow screen and concern for aspiration modified barium swallow has been ordered. Had barium swallow, significant will likely consider PEG tube placement. D5W was initiated for uptrending sodium. Given patient's dysphagia, patient cannot swallow p.o. pills therefore will be continued on IV antihypertensives only. Will continue with incentive spirometry and chest physiotherapy along with antibiotic coverage for aspiration pneumonia. I discussed and supervised with the analysis intern physician who took care of this patient. I personally saw and examined the patient. I agree with most of the assessment and plan. Disclaimer: Despite multiple revisions, due to the dictation software being used, the document bellow may not be free of grammatical errors including phonetic/typographic errors. However, this does not deter from our commitment to providing health care in the patient's best interest in mind. Plan of care discussed with attending Physician Dr. Primo Boss MD PGY-3 Documentation for date of: 10/02/25 Subjective Subjective Interval history: No overnight events. Patient was examined at bedside; they appear A&Ox3 and in NAD. Vitals/labs today significant for BP 173/83, SpO2 99% on 30 L HFNC @ 40% FiO2, sodium 147->151, glucose 253, calculated osmolality. Physical exam was non-contributory. D5W has been started due to patient's climbing hypernatremia (free water deficit 1.4). Due to concerns regarding dysphagia, modified barium swallow has been ordered; should patient fail the evaluation, placement of a PEG tube will be considered. His ongoing hypertension will be managed with IV antihypertensives PRN until he passes swallow evaluation or has PEG tube placed. Otherwise, patient will be encouraged to perform incentive spirometry and chest physiotherapy while continuing his Zosyn IV and vancomycin IV for presumed aspiration pneumonia. Exam Vital Signs Temp Pulse Resp BP Pulse Ox O2 Del Method O2 Flow Rate 99.5 F 91 35 H 185/81 H 96 High Flow Nasal Cannula 10/02/25 12:00 10/02/25 13:16 10/02/25 13:16 10/02/25 12:00 10/02/25 13:16 10/02/25 12:00 10/02/25 13:16 FiO2 35 10/02/25 13:16 Narrative Exam General: No acute distress; A&Ox3; resting in bed Skin: Warm, dry, intact, no obvious rash. HENT: NCAT, EOMI/PERRL, not icteric. External ears normal. No rhinorrhea. Dry mucous membranes Cardiovascular: Regular rate and rhythm, no murmur, +S1/S2. Respiratory: Coarse lung sounds bilaterally, HFNC in place GI: Soft, nontender, non-distended. No guarding or rebound tenderness. : No suprapubic tenderness. No flank tenderness bilaterally. Crane in place Extremities: trace pitting edema, no cyanosis, no clubbing. Extremity pulses present Neuro: Grossly nonfocal. Moving all 4 extremities. CN not formally tested but appear grossly intact. Psychiatric: appropriate affect, cooperative Objective Labs 10/07/25 04:56 10/07/25 04:56 Labs: Laboratory Results - last 24 hr 10/02/25 05:19 WBC 6.4 RBC 2.99 L Hgb 8.0 L Hct 25.7 L MCV 86 MCH 26.8 MCHC 31.1 RDW Std Deviation 44.5 H Plt Count 272 D Neut % (Auto) 84 H Lymph % (Auto) 10 [place] % (Auto) 5 Eos % (Auto) 0 Baso % (Auto) 0 Neut # (Auto) 5.3 Lymph # (Auto) 0.6 L [place] # (Auto) 0.3 Eos # (Auto) 0.0 Baso # (Auto) 0.0 Immature Gran # (Auto) 0.05 H Absolute Nucleated RBC 0.00 Immature Gran % 1 H Nucleated RBC % 0 Sodium 151 H Potassium 3.7 D Chloride 106 Carbon Dioxide 31.7 H Anion Gap 13 BUN 27 H Creatinine 1.0 Estim Creat Clear Calc 75.4 eGFR > 60 BUN/Creatinine Ratio 27 H Glucose 253 H D Calculated Osmolality 313 H Calcium 9.1 Corrected Calcium 9.4 Phosphorus 2.8 Magnesium 2.6 Total Bilirubin 1.1 AST < 8 ALT 16 Alkaline Phosphatase 59 Total Protein 6.7 Albumin 3.6 Globulin 3.1 Albumin/Globulin Ratio 1.2 ABG Interpretation ABG results: 09/24/25 09/29/25 09/29/25 23:16 05:29 09:44 ABG pH 7.40 7.48 H 7.52 H ABG pCO2 45 43 39 ABG pO2 66 L 361 H 75 L D ABG HCO3 28 H 32 H 32 H ABG O2 Saturation 94 101 H 97 ABG Base Excess 3 8 H 8 H 10/01/25 10:53 ABG pH 7.40 D ABG pCO2 53 H D ABG pO2 117 H D ABG HCO3 33 H ABG O2 Saturation 99 H ABG Base Excess 7 H Quality Measures Quality Measures VTE prophylaxis Advance care planning discussed with:: patient Assessment & Plan Assessment Current Active Medications: Generic Name Dose Route Start Last Admin Trade Name Freq PRN Reason Stop Dose Admin Acetaminophen 650 mg 09/24/25 13:29 Acetaminophen 325 Mg Tablet PO 10/24/25 13:28 Q6H PRN Fever >100.5 Acetylcysteine 3 ml 10/01/25 13:00 10/02/25 13:15 Acetylcysteine Rt Adilene 10% 4 Ml Nebu INH 10/31/25 12:59 3 ml Q6HRRT DEYANIRA Administration Albuterol/Ipratropium 3 ml 09/27/25 13:49 10/02/25 13:15 Albuterol/Ipratropium (Duoneb) Rt Adilene 3 Ml Nebu INH 10/26/25 06:59 3 ml Q4HRRT PRN Administration shortness of breath Apixaban 5 mg 09/24/25 21:00 09/30/25 09:32 Apixaban 2.5 Mg Tablet PO 10/24/25 20:59 Not Given On Hold: 09/30/25 19:55 BID DEYANIRA Atorvastatin Calcium 80 mg 09/24/25 21:00 10/01/25 20:03 Atorvastatin Calcium 20 Mg Tablet PO 10/24/25 20:59 Not Given HS DEYANIRA Clopidogrel Bisulfate 75 mg 09/25/25 09:00 10/02/25 09:03 Clopidogrel Bisulfate 75 Mg Tablet PO 10/25/25 08:59 Not Given QDAY DEYANIRA Dextrose 25 ml 09/24/25 14:56 09/24/25 22:41 Dextrose 50%-Water Inj 50 Ml Syringe IV 10/24/25 14:55 25 ml Q15MIN PRN Administration BG 50-70 responsive npo pt Dextrose 50 ml 09/24/25 14:56 Dextrose 50%-Water Inj 50 Ml Syringe IV 10/24/25 14:55 Q15MIN PRN BG <50 OR BG <70 & pt unresponsive Enoxaparin Sodium 80 mg 09/30/25 21:00 10/02/25 09:10 Enoxaparin Sod Inj 80 Mg/0.8 Ml Syringe SC 10/14/25 20:59 80 mg BID DEYANIRA Administration Glucagon 1 mg 09/24/25 14:56 Glucagon Inj 1 Mg Vial IM Q15MIN PRN BG <70, and no IV access Guaifenesin 100 mg 09/27/25 21:00 10/02/25 12:45 Guaifenesin Syrup 200 Mg/10 Ml Udc PO 10/27/25 20:59 Not Given QID [facility] Protocol Piperacillin/Tazobactam/Dextrose 3.375 gm in 50 mls @ 12.5 mls/hr 09/26/25 14:00 10/02/25 13:41 Zosyn IV 10/03/25 13:59 12.5 mls/hr Q8HR DEYANIRA Administration Protocol Vancomycin HCl 200 mls @ 120 mls/hr 09/29/25 10:15 10/02/25 10:55 Vancomycin/Water 1gm Ivpb IV 10/06/25 10:14 120 mls/hr BID@1000,2200 DEYANIRA Administration Protocol Dextrose 1,000 mls @ 100 mls/hr 10/02/25 08:15 10/02/25 10:29 D5w IV 10/02/25 18:14 100 mls/hr .Q10H DEYANIRA Administration Insulin Degludec 15 unit 09/28/25 19:00 09/28/25 20:00 Insulin Degludec 5 Unit/0.05 Ml (Per 5 Units) SC 10/28/25 18:59 15 unit On Hold: 09/29/25 15:43 QDAY@1900 DEYANIRA Administration Insulin Human Lispro 0 unit 09/27/25 18:40 10/02/25 12:38 Insulin Lispro (Admelog) 1 Unit/0.01 Ml Unit SC 10/26/25 13:33 5 unit Q6HR DEYANIRA Administration Protocol Labetalol HCl 10 mg 09/24/25 16:02 09/24/25 16:45 Labetalol Inj 5 Mg/Ml Vial 4 Ml IVP 10/24/25 16:14 10 mg Q10MIN PRN Administration Hypertension Metoprolol Succinate 25 mg 09/25/25 09:00 10/02/25 09:03 Metoprolol Succinate Xl 25 Mg Tabcr PO 10/25/25 08:59 Not Given QDAY DEYANIRA Ondansetron HCl 4 mg 09/24/25 13:29 Ondansetron Inj 2 Mg/Ml Inj 2 Ml IVP 10/24/25 13:28 Q6H PRN NAUSEA OR VOMITING Protocol Pancreatin 1 cap 09/26/25 14:30 10/02/25 09:03 Amylase/Lipase/Protease Capsule (Pancreaze) PO 10/26/25 14:29 Not Given QDAY DEYANIRA Pantoprazole Sodium 40 mg 09/30/25 21:00 10/02/25 09:09 Pantoprazole Inj 40 Mg Vial IVP 10/30/25 20:59 40 mg BID [facility] Administration Pharmacy Consult 1 each 09/29/25 10:15 Vancomycin Pharmacy To Dose 1 Each Each IV 10/29/25 10:14 QDAY PRN PROTOCOL Potassium Phos/Sodium Phos 1 packet 09/28/25 08:00 10/02/25 09:03 [facility] 1 Packet (1.5 Gm) PO 10/28/25 07:59 Not Given BIDWM DEYANIRA Plan 77-year-old male with past medical history (per nurse at [facility]) of CAD, A-Fib, on Eliquis, hypertension, CKD, type 2 diabetes, Parkinson's disease on hospice, depression, and anxiety who was admitted on 09/24/25 for AHRF secondary to pneumonia. #Acute hypoxic respiratory failure #Significant bibasilar pneumonia #??Aspiration pneumonia vs. aspiration pneumonitis #Sepsis, resolved Initial CXR showed early heart failure but CT A/P showed significant bibasilar pneumonia. CBC normal and Pro-Brian normal. Spoke to nurse at patient's SNF and states that patient at baseline is ANO x 3. Apparently patient is on hospice with primary diagnosis of Parkinson's disease with dysphagia. Suspect that patient presenting with aspiration versus commune acquired pneumonia Dx: -BCx, Cocci serology, COVID, and influenza negative -10/[address] ordered, showed diffuse significant bilateral pneumonia Rx: -Vancomycin 1 g IV QD [09/29-10/06] -Zosyn 3.375 g IV TID [09/26-10/03] -Continue encouraging incentive spirometry -Chest physiotherapy -Continue HFNC, wean as tolerated -BiPAP PRN #Dysphagia Patient was noted to have failed nurse swallow evaluation on 10/02 Dx: -MBS ordered, showed ___ Rx: -Speech therapy consulted, placed NPO -Registered dietitian consulted #Hypernatremia Patient was noted to have sodium 147->151 on 10/02, likely 2/2 dehydration from poor PO water intake Free water deficit of 1.4 Rx: -D5W -Monitor sodium daily #Hypertension 09/24 admission BP 213/84 Continues to be high Rx: -Labetalol 10 mg IV PRN for SBP over 180 or DBP over 120 -Will start antihypertensive regimen after patient either passes swallow evaluation or PEG tube is placed #Diarrhea, improving Patient endorses diarrhea since admission Patient not tolerating foods very well, states it goes through him anything he eats/drinks Restarted his pancreas enzymes Loose stools continued, but reported as better formed Rx: -Amylase/lipase/protease 1 cap PO QD -Consulted dietitian -Speech therapy consulted, placed NPO #T2DM - insulin dependent home meds of degludec 21 u BID and aspart 4u with meal Patient glucose 61, was given dextrose, normalized A1c 7.9 on 09/25/2025 Rx: ?Holding degludec as patient currently NPO and sugars within range ?SSI ?Hypoglycemic protocol in place #CAD #HTN Patient reported to have had NSTEMI in the last 6 months. Chart review states stent placed BP 213/84 on admission, restarted home meds below Echo 09/25 EF 60-65% Rx: ?Atorvastatin 80 mg HS ?Plavix 75 mg daily #Atrial fibrillation, currently sinus rhythm Home med of eliquis ? Eliquis 5 mg twice daily ? Metoprolol succinate 25 mg daily #Hyperbilirubinemia, improving #Transaminitis, resolved Patient TBili 2.4, AST 81 on admission No liver/gall bladder pathology history Liver US unremarkable #Anemia, normocytic #Thrombocytopenia, improved ? Will monitor for s/s bleeding #? BPH Moderate prostatomegaly found on CTAP ? Follow up outpatient with PCP #Osteopenia Patient found with advanced degenerative disc disease L4-S1 ? Follow up outpatient with PCP #Hypokalemia, resolved #hypophosphatemia, resolved ?Will continue to monitor and replete as necessary Hospital management: Disposition: Tele Fluids: D5W Diet: NPO per speech therapy Lines: PIV DVT prophylaxis: Eliquis 5 mg BID GI prophylaxis: Pantoprazole Crane: Placed CODE STATUS: Full Code ----- Plan discussed with attending physician Dr. Malathi Tillman DO PGY-1 Internal Medicine Attending Provider Attestation/Addendum I have examined the patient, reviewed labs and imaging findings, discussed the case with the resident(s), and reviewed entered orders. I agree with the plan of care as outlined in this note. Dr. Malathi MD
--- NOTE | 2025-10-02 13:56 | PCS.ST ---
MBSS cx d/t low saturations and AMS to actively participate. Study will be rescheduled for 10/03 at 10 AM.
--- NOTE | 2025-10-02 16:53 | PC.RT ---
High flow settings increased @ 1600 check to maintain o2 sats @92% and above. Increased to 30L 50%, pt tolerating well, o2 sats increased to 95%.
--- NOTE | 2025-10-02 17:57 | PC.NURSE ---
1258-, PATIENT TAGGIING FLOWERS CATHETER , DR PAYAN ORDERED TO REMOVE FLOWERS CATHETER NOW..
--- NOTE | 2025-10-02 18:00 | PC.NURSE ---
PATIENT VOIDED VIA PAD NOTED SOME BLEEDING MIX WITH URINE, DR. MAYS AWARE, DR. MAYS ORDER TO MONITOR FURTHER BLEEDING.
[2025-10-02 22:02] LABS: Vancomycin,Trough 15.6 mcg/mL (5.0-10.0)
[2025-10-03] VITALS (21 sets, daily range): BP systolic 64–190; BP diastolic 49–106; PULSE 67–150; RESP 12–25; TEMP 36–36.9; O2SAT 85–100
--- NOTE | 2025-10-03 00:03 | PC.NURSE ---
patient continues to go sinus tachy, up to 160. It coincides when he is trying to sit up in bed or move around. Patient has multiple pacs then had a run of vtach 7 beats and another round of 8 beat vtach. I notified Dr. Martin and he is reviewing his chart.
[2025-10-03] MEDS: POT PHOS 15 mMol in NS 250 ML 15 MMOL/250 ML BAG 62.5 MMOL IV (00:26)
[2025-10-03] MEDS: ACETYLCYSTEINE RT SOL 10% 4 ML NEBU 3 ML INH ×4 (01:47→19:39)
[2025-10-03] MEDS: PIPER/TAZO 3.375 GM PREMIX 3.375 GM/50 ML BAG IV (05:27)
[2025-10-03] MEDS: INSULIN LISPRO (AdmeLOG) 1 UNIT/0.01 ML UNIT SC ×3 (05:39→23:33)
[2025-10-03 06:31] LABS: Alanine Aminotransferase 15 U/L (10-49); Albumin, Serum 3.9 gm/dL (3.4-4.8); Albumin/Globulin Ratio 1.3 (1.2-2.2); Alkaline Phosphatase 59 U/L (46-116); Anion Gap 15 (7-16); Aspartate Amino Transferase 19 U/L (0-34); BUN/Creatinine Ratio 24 Ratio (12-20); Bilirubin,Total 1.3 mg/dL (0.3-1.2); Blood Urea Nitrogen 24 mg/dL (9-23); Calcium 8.8 mg/dL (8.3-10.6); Calcium (Corrected) 8.9 mg/dL (8.5-10.1); Carbon Dioxide 32.3 mMol/L (20.0-31.0); Chloride 106 mMol/L (98-107); Creatinine (Component) 1.0 mg/dL (0.6-1.3); Estimated Creatinine Clearance 75.4 mL/min (>60); Globulin 2.9 gm/dL (2.3-3.5); Glucose 272 mg/dL (74-106); Magnesium 2.4 mg/dL (1.6-2.6); Osmolality,Calculated 317 (275-295); Phosphorous 3.7 mg/dL (2.4-5.1); Potassium 3.5 mMol/L (3.4-5.1); Sodium 153 mMol/L (136-145); Total Protein 6.8 gm/dL (5.7-8.2); eGFR > 60 See Note
[2025-10-03 06:33] LABS: Basophils # (Auto) 0.0 Thou/mm3 (0.0-0.2); Basophils % (Auto) 0 % (0-2.5); Eosinophils # (Auto) 0.0 Thou/mm3 (0.0-0.5); Eosinophils % (Auto) 0 % (0-10); Hematocrit 25.4 % (41.0-53.0); Immature Granulocytes Auto 0.10 Thou/mm3 (0.00-0.00); Lymphocytes # (Auto) 0.7 Thou/mm3 (1.0-4.8); Lymphocytes % (Auto) 8 % (10-50); Mean Corpuscular HGB Conc 31.5 g/dl (31.0-37.0); Mean Corpuscular Hemoglobin 26.9 pg (25.0-35.0); Mean Corpuscular Volume 86 fL (80-100); Monocytes # (Auto) 0.4 Thou/mm3 (0.0-0.8); Monocytes % (Auto) 5 % (0-12); Neutrophils # (Auto) 7.5 Thou/mm3 (1.8-7.7); Neutrophils % (Auto) 86 % (37-80); Nucleated Red Blood Cell # 0.00 Thou/mm3 (0.00-0.00); Nucleated Red Blood Cell % 0 /100 WBC (0); Platelet Count 264 Thou/mm3 (140-440); RDW Standard Deviation 43.9 fL (35.1-43.9); Red Blood Count 2.97 Miln/mm3 (4.50-5.90); White Blood Count 8.7 Thou/mm3 (3.8-10.6)
[2025-10-03] MEDS: ALBUTEROL/IPRATROPIUM (Duoneb) RT SOL 3 ML NEBU INH ×3 (06:50→19:39)
[2025-10-03 07:32] LABS: Hemoglobin 8.0 g/dL (13.5-16.0)
[2025-10-03] MEDS: INSULIN DEGLUDEC 5 UNIT/0.05 ML (PER 5 UNITS) 15 UNIT SC (07:55)
[2025-10-03] MEDS: DEXTROSE 5%-WATER 500 ML 125 ML IV ×3 (07:57→22:28)
--- NOTE | 2025-10-03 09:00 | PC.SS ---
rounding note: Patient pending swallow eval. Patient now on 6L of .
[2025-10-03] MEDS: ENOXAPARIN SOD INJ 80 MG/0.8 ML SYRINGE SC ×2 (09:19→21:48)
--- NOTE | 2025-10-03 10:00 | XR_ITS ---
EXAMINATION: Video esophagram Modified barium swallow Fluoroscopy 85 spot fluoroscopic films of the esophagus soft tissue lateral neck Date and time: October 03, 2025, 0951 hours INDICATIONS: Sepsis, aspiration pneumonia difficulty breathing this week TECHNIQUE AND FINDINGS: Multiple barium mixtures administered with pooling in the vallecular region and poor oral control Pudding honey nectar and nectar and a straw mixtures administered Premature transfer, pooling in the vallecular region Silent aspiration with administration nectar through a straw IMPRESSION: Silent aspiration with administration nectar through a straw Fluoroscopy 0.1-minute radiation dose 27.63 mGy 85 spot fluoroscopic films of the esophagus
--- NOTE | 2025-10-03 10:42 | PCS.ST ---
MBSS/VFSS completed. See MBSiMP report for details. Silent Aspiration with delayed airway response.
[2025-10-03] MEDS: VANCOMYCIN/WATER 1GM IVPB 200 ML IV ×2 (10:56→21:48)
[2025-10-03 11:11] LABS: Base Excess, Venous 9 (-3-3); O2 Saturation, Venous 99 % (96-97); PCO2, Venous 43 mmHg (36-56); PO2, Venous 97 mmHg (15-58); pH, Venous 7.50 (7.33-7.66)
--- NOTE | 2025-10-03 11:48 | ESPR_ITS ---
<Statement entered by Farzad Boss MD - 10/03/25 18:33> Patient was seen and examined at the bedside. Patient did not pass swallow screen on barium swallow therefore GI is consulted for possible placement of PEG tube after taking consent from [facility]. Will likely perform goals of care discussion with the family as patient continues to have overall declining condition. Due to failed swallow screen were not able to start p.o. antihypertensives and have only labetalol as needed for hypertension. Patient had elevated blood sugar therefore degludec was started most likely due to D5W given for hypernatremia. will continue with D5W as well. I discussed and supervised with the electrical intern physician who took care of this patient. I personally saw and examined the patient. I agree with most of the assessment and plan. Disclaimer: Despite multiple revisions, due to the dictation software being used, the document bellow may not be free of grammatical errors including phonetic/typographic errors. However, this does not deter from our commitment to providing health care in the patient's best interest in mind. Plan of care discussed with attending Physician Dr. Primo Boss MD PGY-3 Documentation for date of: 10/03/25 Subjective Subjective Interval history: No overnight events. Patient was examined at bedside; they appear A&Ox3 and in NAD. Vitals/labs today significant for BP 186/96, RR 24, on 35% HF NS with 40% FiO2, hemoglobin 8.0, sodium 153 (despite D5W yesterday), bicarbonate 32.3, anion gap 13->15, blood glucose 272, calculated osmolality 317, total bilirubin 1.1->1.3. Physical exam was non-contributory. Patient did not pass the barium swallow screen so GI has been consulted for PEG tube placement later today (consent already obtained from Neymar Cardenas, patient's person to notify). Once this has been completed, patient's ongoing hypertension can be addressed by starting antihypertensives administered via GT. Patient's hypernatremia continues to climb so D5W @ an increased rate of 125 cc/hr has been started. At this time, prognosis remains guarded and it would likely be beneficial to have a goals of care discussion with patient's family in the near future should patient's condition continue to decline. Exam Vital Signs Temp Pulse Resp BP Pulse Ox O2 Del Method O2 Flow Rate 97.1 F 93 24 H 186/96 H 99 High Flow Nasal Cannula 6 10/03/25 08:00 10/03/25 09:00 10/03/25 08:00 10/03/25 09:00 10/03/25 08:00 10/03/25 08:00 10/03/25 08:00 FiO2 55 10/03/25 08:00 Narrative Exam General: No acute distress; A&Ox3; resting in bed Skin: Warm, dry, intact, no obvious rash. HENT: NCAT, EOMI/PERRL, not icteric. External ears normal. No rhinorrhea. Dry mucous membranes Cardiovascular: Regular rate and rhythm, no murmur, +S1/S2. Respiratory: Coarse lung sounds bilaterally, HFNC in place GI: Soft, nontender, non-distended. No guarding or rebound tenderness. : No suprapubic tenderness. No flank tenderness bilaterally. Crane in place Extremities: trace pitting edema, no cyanosis, no clubbing. Extremity pulses present Neuro: Grossly nonfocal. Moving all 4 extremities. CN not formally tested but appear grossly intact. Psychiatric: appropriate affect, cooperative Objective Labs 10/07/25 04:56 10/07/25 04:56 Labs: Laboratory Results - last 24 hr 10/02/25 10/03/25 10/03/25 20:51 05:25 10:51 WBC 8.7 RBC 2.97 L Hgb 8.0 L Hct 25.4 L MCV 86 MCH 26.9 MCHC 31.5 RDW Std Deviation 43.9 Plt Count 264 Neut % (Auto) 86 H Lymph % (Auto) 8 L Cooke % (Auto) 5 Eos % (Auto) 0 Baso % (Auto) 0 Neut # (Auto) 7.5 Lymph # (Auto) 0.7 L [place]oke # (Auto) 0.4 Eos # (Auto) 0.0 Baso # (Auto) 0.0 Immature Gran # (Auto) 0.10 H Absolute Nucleated RBC 0.00 Immature Gran % 1 H Nucleated RBC % 0 VBG pH 7.50 VBG pCO2 43 VBG pO2 97 H VBG O2 Sat (Brant) 99 H VBG Base Excess 9 H Sodium 153 H Potassium 3.5 Chloride 106 Carbon Dioxide 32.3 H Anion Gap 15 BUN 24 H Creatinine 1.0 Estim Creat Clear Calc 75.4 eGFR > 60 BUN/Creatinine Ratio 24 H Glucose 272 H Calculated Osmolality 317 H Calcium 8.8 Corrected Calcium 8.9 Phosphorus 3.7 Magnesium 2.4 Total Bilirubin 1.3 H AST 19 ALT 15 Alkaline Phosphatase 59 Total Protein 6.8 Albumin 3.9 Globulin 2.9 Albumin/Globulin Ratio 1.3 Vancomycin Trough 15.6 H ABG Interpretation ABG results: 09/24/25 09/29/25 09/29/25 23:16 05:29 09:44 ABG pH 7.40 7.48 H 7.52 H ABG pCO2 45 43 39 ABG pO2 66 L 361 H 75 L D ABG HCO3 28 H 32 H 32 H ABG O2 Saturation 94 101 H 97 ABG Base Excess 3 8 H 8 H VBG pH VBG pCO2 VBG pO2 VBG Base Excess 10/01/25 10/03/25 10:53 10:51 ABG pH 7.40 D ABG pCO2 53 H D ABG pO2 117 H D ABG HCO3 33 H ABG O2 Saturation 99 H ABG Base Excess 7 H VBG pH 7.50 VBG pCO2 43 VBG pO2 97 H VBG Base Excess 9 H Quality Measures Quality Measures VTE prophylaxis Advance care planning discussed with:: patient and legal surragate Assessment & Plan Assessment Current Active Medications: Generic Name Dose Route Start Last Admin Trade Name Freq PRN Reason Stop Dose Admin Acetaminophen 650 mg 09/24/25 13:29 Acetaminophen 325 Mg Tablet PO 10/24/25 13:28 Q6H PRN Fever >100.5 Acetylcysteine 3 ml 10/01/25 13:00 10/03/25 06:49 Acetylcysteine Rt Adilene 10% 4 Ml Nebu INH 10/31/25 12:59 3 ml Q6HRRT DEYANIRA Administration Albuterol/Ipratropium 3 ml 09/27/25 13:49 10/03/25 06:50 Albuterol/Ipratropium (Duoneb) Rt Adilene 3 Ml Nebu INH 10/26/25 06:59 3 ml Q4HRRT PRN Administration shortness of breath Apixaban 5 mg 09/24/25 21:00 09/30/25 09:32 Apixaban 2.5 Mg Tablet PO 10/24/25 20:59 Not Given On Hold: 09/30/25 19:55 BID DEYANIRA Atorvastatin Calcium 80 mg 09/24/25 21:00 10/02/25 20:43 Atorvastatin Calcium 20 Mg Tablet PO 10/24/25 20:59 Not Given HS DEYANIRA Clopidogrel Bisulfate 75 mg 09/25/25 09:00 10/03/25 09:00 Clopidogrel Bisulfate 75 Mg Tablet PO 10/25/25 08:59 Not Given QDAY DEYANIRA Dextrose 25 ml 09/24/25 14:56 09/24/25 22:41 Dextrose 50%-Water Inj 50 Ml Syringe IV 10/24/25 14:55 25 ml Q15MIN PRN Administration BG 50-70 responsive npo pt Dextrose 50 ml 09/24/25 14:56 Dextrose 50%-Water Inj 50 Ml Syringe IV 10/24/25 14:55 Q15MIN PRN BG <50 OR BG <70 & pt unresponsive Enoxaparin Sodium 80 mg 09/30/25 21:00 10/03/25 09:19 Enoxaparin Sod Inj 80 Mg/0.8 Ml Syringe SC 10/14/25 20:59 80 mg BID DEYANIRA Administration Glucagon 1 mg 09/24/25 14:56 Glucagon Inj 1 Mg Vial IM Q15MIN PRN BG <70, and no IV access Guaifenesin 100 mg 09/27/25 21:00 10/03/25 05:27 Guaifenesin Syrup 200 Mg/10 Ml Udc PO 10/27/25 20:59 Not Given QID [facility] Protocol Piperacillin/Tazobactam/Dextrose 3.375 gm in 50 mls @ 12.5 mls/hr 09/26/25 14:00 10/03/25 05:27 Zosyn IV 10/03/25 13:59 12.5 mls/hr Q8HR DEYANIRA Administration Protocol Vancomycin HCl 200 mls @ 120 mls/hr 09/29/25 10:15 10/03/25 10:56 Vancomycin/Water 1gm Ivpb IV 10/06/25 10:14 120 mls/hr BID@1000,2200 DEYANIRA Administration Protocol Dextrose 500 mls @ 125 mls/hr 10/03/25 07:15 10/03/25 07:57 D5w IV 11/02/25 07:14 125 mls/hr .Q4H DEYANIRA Administration Insulin Degludec 15 unit 10/03/25 07:10 10/03/25 09:15 Insulin Degludec 5 Unit/0.05 Ml (Per 5 Units) SC 11/02/25 07:09 Not Given QDAY DEYANIRA Insulin Human Lispro 0 unit 09/27/25 18:40 10/03/25 05:39 Insulin Lispro (Admelog) 1 Unit/0.01 Ml Unit SC 10/26/25 13:33 5 unit Q6HR DEYANIRA Administration Protocol Labetalol HCl 10 mg 09/24/25 16:02 10/03/25 07:55 Labetalol Inj 5 Mg/Ml Vial 4 Ml IVP 10/24/25 16:14 10 mg Q10MIN PRN Administration Hypertension Metoprolol Succinate 25 mg 09/25/25 09:00 10/03/25 09:00 Metoprolol Succinate Xl 25 Mg Tabcr PO 10/25/25 08:59 Not Given QDAY DEYANIRA Ondansetron HCl 4 mg 09/24/25 13:29 Ondansetron Inj 2 Mg/Ml Inj 2 Ml IVP 10/24/25 13:28 Q6H PRN NAUSEA OR VOMITING Protocol Pancreatin 1 cap 09/26/25 14:30 10/03/25 09:00 Amylase/Lipase/Protease Capsule (Pancreaze) PO 10/26/25 14:29 Not Given QDAY [facility] Pantoprazole Sodium 40 mg 09/30/25 21:00 10/03/25 09:19 Pantoprazole Inj 40 Mg Vial IVP 10/30/25 20:59 40 mg BID DEYANIRA Administration Pharmacy Consult 1 each 09/29/25 10:15 Vancomycin Pharmacy To Dose 1 Each Each IV 10/29/25 10:14 QDAY PRN PROTOCOL Potassium Phos/Sodium Phos 1 packet 09/28/25 08:00 10/03/25 09:00 [facility] 1 Packet (1.5 Gm) PO 10/28/25 07:59 Not Given BIDWM DEYANIRA Plan 77-year-old male with past medical history (per nurse at [facility]) of CAD, A-Fib, on Eliquis, hypertension, CKD, type 2 diabetes, Parkinson's disease on hospice, depression, and anxiety who was admitted on 09/24/25 for AHRF secondary to pneumonia. #Acute hypoxic respiratory failure #Significant bibasilar pneumonia #??Aspiration pneumonia vs. aspiration pneumonitis #Sepsis, resolved Initial CXR showed early heart failure but CT A/P showed significant bibasilar pneumonia. CBC normal and Pro-Brian normal. Spoke to nurse at patient's SNF and states that patient at baseline is ANO x 3. Apparently patient is on hospice with primary diagnosis of Parkinson's disease with dysphagia. Suspect that patient presenting with aspiration versus commune acquired pneumonia Dx: -BCx, Cocci serology, COVID, and influenza negative -10/[address] ordered, showed diffuse significant bilateral pneumonia Rx: -Vancomycin 1 g IV QD [09/29-10/06] -Zosyn 3.375 g IV TID [09/26-10/03] -Continue encouraging incentive spirometry -Chest physiotherapy -Continue HFNC, wean as tolerated -BiPAP PRN #Dysphagia Patient was noted to have failed nurse swallow evaluation on 10/02 Dx: -Modified barium swallow screen ordered, failed by patient on 10/03 Rx: -GI consulted for PEG tube placement, tentatively scheduled for 10/03 -Speech therapy consulted, placed NPO -Registered dietitian consulted #Hypernatremia Patient was noted to have sodium 147->151 on 10/02, likely 2/2 dehydration from poor PO water intake Free water deficit of 1.4 10/03 sodium 151 despite D5W Rx: -D5W @ increased rate of 125 cc/hr -Monitor sodium daily #Hyperglycemia #Insulin-dependent T2DM Home medications: Degludec 21 U BID and Aspart 4 U w/ meals 10/03 blood glucose noted to be elevated at 272, likely 2/2 D5W being administered for treatment of hypernatremia Dx: -09/25/25 HgbA1c ordered, showed 7.9 Rx: -Degludec 15 U QD -SSI w/ hypoglycemic protocol in place #Hypertension 09/24 admission BP 213/84 Continues to be high Rx: -Labetalol 10 mg IV PRN for SBP over 180 or DBP over 120 -Will start antihypertensive regimen after PEG tube is placed #Diarrhea, improving Patient endorses diarrhea since admission Patient not tolerating foods very well, states it goes through him anything he eats/drinks Restarted his pancreas enzymes Loose stools continued, but reported as better formed Rx: -Amylase/lipase/protease 1 cap PO QD -Consulted dietitian -Speech therapy consulted, placed NPO #CAD #HTN Patient reported to have had NSTEMI in the last 6 months. Chart review states stent placed BP 213/84 on admission, restarted home meds below Echo 09/25 EF 60-65% Rx: ?Atorvastatin 80 mg HS ?Plavix 75 mg daily #Atrial fibrillation, currently sinus rhythm Home med of eliquis ? Eliquis 5 mg twice daily ? Metoprolol succinate 25 mg daily #Hyperbilirubinemia, improving #Transaminitis, resolved Patient TBili 2.4, AST 81 on admission No liver/gall bladder pathology history Liver US unremarkable #Anemia, normocytic #Thrombocytopenia, improved ? Will monitor for s/s bleeding #? BPH Moderate prostatomegaly found on CTAP ? Follow up outpatient with PCP #Osteopenia Patient found with advanced degenerative disc disease L4-S1 ? Follow up outpatient with PCP #Hypokalemia, resolved #hypophosphatemia, resolved ?Will continue to monitor and replete as necessary Hospital management: Disposition: Telemetry Fluids: D5W Diet: NPO per speech therapy (failed barium swallow, planned for PEG tube placement) DVT prophylaxis: Eliquis 5 mg BID GI prophylaxis: Pantoprazole Crane: Placed CODE STATUS: Full Code ----- Plan discussed with attending physician Dr. Thee Tillman DO PGY-1 Internal Medicine Attending Provider Attestation/Addendum I, Regina Martinez DO, attest that I was physically present for the fregoso portions of the service and evaluated the patient with the resident and I reviewed and discussed the case with the resident and agree with the resident's findings and plans of care as documented above Patient seen and evaluated this AM. He remains on HFNC with flow of 30L/min and FIO2 of 50%. Patient has failed swallow eval and pending MBS today. However, will need to wean to NC in order to do so. Discussed with RT to wean O2. Patient continues to have scattered rhonchi in b/l lung ol[place]. Continue with chest PT and breathing treatments. He is noted to have uptrending hypernatremia as well. Will start on D5W and trend sodium. If patient fails MBS, will place NG tube and start free water flushes, as well as discussion of PEG tube placement with pt. He otherwise states he is feeling improved. Patient is much more alert and responsive to questions. He states that he has pain all over his body. Rest of physical exam unremarkable? Delayed signature due to inability to log onto [employer] from remote access. Attestation was written within 24h of seeing patient.
--- NOTE | 2025-10-03 16:18 | PD.IMCONS ---
HPI Data of Consult Requesting Physician: Regina Martinez DO Primary Care Provider: Ally Oreilly MD ([facility]) Consult Narrative Reason for consult: Dysphagia, failure to thrive History of present illness: 69 years old male comes in for evaluation with shortness of breath and not feeling good from the senior living on 09/24/2025 got admitted with acute hypoxic respiratory failure He has a history of paroxysmal atrial fibrillation on Eliquis CKD diabetes mellitus type 2 and depression He also has progressive dysphagia He had a video fluoroscopic barium swallow which he failed and had aspiration I have been asked for a PEG placement He is fully alert for the consent process of this procedure under MAC cc:: cc: Regina Martienz DO Review of Systems Review of Systems ROS Unobtainable: unobtainable due to medical condition Past Medical History Surgical History OTHER SURGICAL HX: As in the history of present illness Meds Home Medications and Allergies Home Medications ?Medication ?Instructions ?Recorded ?Confirmed ?Type apixaban 5 mg tablet (Eliquis) 5 mg PO Q12H 09/24/25 09/24/25 History aripiprazole 10 mg tablet 10 mg PO HS 09/24/25 09/24/25 History atorvastatin 80 mg tablet 80 mg PO DAILY 09/24/25 09/24/25 History baclofen 10 mg tablet 10 mg PO Q8H PRN muscle spasm 09/24/25 09/24/25 History clopidogrel 75 mg tablet 75 mg PO DAILY 09/24/25 09/24/25 History metoprolol succinate 100 mg 25 mg PO DAILY 09/24/25 09/24/25 History tablet,extended release 24 hr acetaminophen 650 mg rectal 650 mg MD Q4H PRN fever 09/25/25 09/25/25 History suppository alprazolam 1 mg tablet 1 mg PO BID 09/25/25 09/25/25 History atorvastatin 80 mg tablet (Lipitor) 80 mg PO QPM 09/25/25 09/25/25 History hydrocodone 10 mg-acetaminophen 1 tab PO BID PRN pain 09/25/25 09/25/25 History 325 mg tablet insulin aspart U-100 100 unit/mL 1 sliding scale dose subcut ACHS 09/25/25 09/25/25 History (3 mL) subcutaneous pen (Novolog FlexPen U-100 Insulin aspart) metoprolol succinate 25 mg 25 mg PO DAILY 09/25/25 09/25/25 History tablet,extended release 24 hr pantoprazole 40 mg tablet,delayed 40 mg PO .Q24 09/25/25 09/25/25 History release pregabalin 150 mg capsule 150 mg PO BID 09/25/25 09/25/25 History ranolazine 500 mg tablet,extended 500 mg PO BID 09/25/25 09/25/25 History release,12 hr sertraline 150 mg capsule 150 mg PO Q24H 09/25/25 09/25/25 History eczent-shxorclk-ioxsut(pork)24,000-76,000-120,000 1 cap PO QDAY 09/26/25 09/26/25 History unit capsule,del rel (Creon) Allergies Allergy/AdvReac Type Severity Reaction Status Date / Time Iodinated Contrast Media Allergy Verified 09/24/25 09:06 nifedipine Allergy Verified 09/24/25 09:06 Exam Vital Signs Temp Pulse Resp BP Pulse Ox O2 Del Method O2 Flow Rate 97.1 F 107 H 21 H 150/65 H 100 High Flow Nasal Cannula 7 10/03/25 16:00 10/03/25 16:00 10/03/25 16:00 10/03/25 16:00 10/03/25 16:00 10/03/25 16:00 10/03/25 16:00 FiO2 55 10/03/25 16:00 Constitutional Comments: Chronically ill-appearing Routine Respiratory Exam Comments: Scattered rhonchi Routine Abdominal Exam Comments: Soft nontender Results Labs 10/03/25 05:25 10/03/25 05:25 Labs: Short CBC 10/03/25 Range/Units 05:25 WBC 8.7 (3.8-10.6) Thou/mm3 Hgb 8.0 L (13.5-16.0) g/dL Hct 25.4 L (41.0-53.0) % Plt Count 264 (140-440) Thou/mm3 BMP 10/03/25 05:25 Sodium 153 H Potassium 3.5 Chloride 106 Carbon Dioxide 32.3 H BUN 24 H Creatinine 1.0 Glucose 272 H Calcium 8.8 Liver Function 10/03/25 Range/Units 05:25 Total Bilirubin 1.3 H (0.3-1.2) mg/dL AST 19 (0-34) U/L ALT 15 (10-49) U/L Alkaline Phosphatase 59 (46-116) U/L Albumin 3.9 (3.4-4.8) gm/dL ABG Interpretation ABG results: 09/24/25 09/29/25 09/29/25 23:16 05:29 09:44 ABG pH 7.40 7.48 H 7.52 H ABG pCO2 45 43 39 ABG pO2 66 L 361 H 75 L D ABG HCO3 28 H 32 H 32 H ABG O2 Saturation 94 101 H 97 ABG Base Excess 3 8 H 8 H VBG pH VBG pCO2 VBG pO2 VBG Base Excess 10/01/25 10/03/25 10:53 10:51 ABG pH 7.40 D ABG pCO2 53 H D ABG pO2 117 H D ABG HCO3 33 H ABG O2 Saturation 99 H ABG Base Excess 7 H VBG pH 7.50 VBG pCO2 43 VBG pO2 97 H VBG Base Excess 9 H Assessment and Plan Additional Assessment & Plan Additional Plan: # Failure to thrive # Dysphagia # Failed swallow evaluation Plan Consent obtained for PEG tube placement under MAC N.p.o. Other medical problems include Acute hypoxic respiratory failure Diabetes mellitus type 2 essential hypertension CKD stage III Diabetes mellitus type 2 Dysphagia Thank you very much for the opportunity to participate in care of this patient
[2025-10-03] MEDS: INSULIN HUM REGULAR 1 UNIT/0.01 ML (PER UNIT) 5 UNIT SC (18:09)
[2025-10-03] MEDS: RINGERS LACTATED 1000 ML 1,000 ML 125 ML IV (18:18)
--- NOTE | 2025-10-03 18:56 | SUR.PHASEI ---
Arrived to recovery bay 1 via [facility] [place]. Report received from Jaimie DAVALOS and Dr. Flores. Responds to commands appropriately. Opens eyes and answers simple yes or no questions. No s/o distress or discomfort. Peg tube dressing C/D/I. Wiggles toes and fingers on command.
--- NOTE | 2025-10-03 19:27 | SUR.PHASEI ---
Taken to room 271 via gurney by Kiarra DAVALOS. Peg tube site remains C/D/I. No c/o pain or discomfort. No s/o distress.
--- NOTE | 2025-10-03 20:49 | EKG_ITS ---
[facility] Test Date: 2025-10-03 Pat Name: MONY GARCIA [facility] Gender: Male Software Engineering Project Manager: CLARICE : 1955 Requested By: Trae Curry Order Number: [id number] Reading MD: Trae Curry Measurements Intervals [place] Rate: 88 P: 83 CT: 146 QRS: 51 QRSD: 102 T: 66 QT: 386 QTc: 468 Interpretive Statements SINUS RHYTHM WITH OCCASIONAL VENTRICULAR PREMATURE COMPLEXES WITH OCCASIONAL SUPRAVENTRICULAR PREMATURE COMPLEXES NONSPECIFIC ST & T-WAVE ABNORMALITY Compared to ECG 09/24/2025 09:37:39 Ventricular premature complex(es) now present T-wave abnormality still present /store/S0/[id number].pdf
--- NOTE | 2025-10-03 20:50 | XR_ITS ---
EXAMINATION: AP chest single view TECHNIQUE: AP portable semiupright chest single view Date and time: October 03, 2025, 2056 hours, comparison October 01, 2025 INDICATION: Hypoxia, rapid response today. FINDINGS: Prominent left lung pneumonia, consider aspiration pneumonia. Normal heart size Moderate vascular congestion Prominent osteopenia IMPRESSION: Prominent left lung pneumonia, consider aspiration pneumonia
[2025-10-03 21:08] LABS: Lactate (Lactic Acid) 1.7 mMol/L (0.4-2.0)
[2025-10-03 21:09] LABS: Basophils # (Auto) 0.0 Thou/mm3 (0.0-0.2); Basophils % (Auto) 0 % (0-2.5); Eosinophils # (Auto) 0.0 Thou/mm3 (0.0-0.5); Eosinophils % (Auto) 0 % (0-10); Hematocrit 27.0 % (41.0-53.0); Immature Granulocytes Auto 0.10 Thou/mm3 (0.00-0.00); Lymphocytes # (Auto) 1.4 Thou/mm3 (1.0-4.8); Lymphocytes % (Auto) 11 % (10-50); Mean Corpuscular HGB Conc 30.4 g/dl (31.0-37.0); Mean Corpuscular Hemoglobin 26.4 pg (25.0-35.0); Mean Corpuscular Volume 87 fL (80-100); Monocytes # (Auto) 0.6 Thou/mm3 (0.0-0.8); Monocytes % (Auto) 5 % (0-12); Neutrophils # (Auto) 10.2 Thou/mm3 (1.8-7.7); Neutrophils % (Auto) 83 % (37-80); Nucleated Red Blood Cell # 0.00 Thou/mm3 (0.00-0.00); Nucleated Red Blood Cell % 0 /100 WBC (0); Platelet Count 282 Thou/mm3 (140-440); RDW Standard Deviation 44.7 fL (35.1-43.9); Red Blood Count 3.11 Miln/mm3 (4.50-5.90); White Blood Count 12.3 Thou/mm3 (3.8-10.6)
[2025-10-03 21:11] LABS: Hemoglobin 8.2 g/dL (13.5-16.0)
--- NOTE | 2025-10-03 21:21 | EVENTNT_ITS ---
Documentation for date of: 10/03/25 Event Note Event Note: Rapid Response Room:?271 Time:?2044 Reason for Call:?MAP 50 and desaturated to mid 80s Patient presentation:?Patient was sitting up in bed with oxy mask on, staring off but responsive to questions and commands. Patient did appear to be shaking with his whole body. Events:? Rapid response was called because nursing staff was doing blood pressure checks and patient was found to have a MAP of 50 however may have been a BP cuff issue as subsequent measurements were overtly hypertensive. Additionally, patient had desaturation to the mid 80s on 6 L oxy mask. Nursing staff put patient on 9 L, which resolved his acute desat before physicians arrived to the room. The patient was noted to have a heart rate ranging from 110s to 150s with an irregular rhythm and when physicians came to the room, patient was noted to have a systolic blood pressure in the 180s to 190s. Patient just recently came back from PEG tube placement under anesthesia, however at the time of this event note, it is not clear what anesthetics were used. The patient was noted to be on 8 L nasal cannula during the procedure under moderate sedation. Chart review was performed and it was found that the patient did not receive his metoprolol succinate 25 mg this morning as the patient was n.p.o., which is the medication he uses for rate control of his A-fib with RVR. The patient does note that he feels ill, has some chest pain, and notes that he feels like his heart is beating funny, however patient does not appear more altered than usual and was able to state his name and location and followed all commands. The patient's A- fib with RVR is likely the cause of the initial abnormal findings and patient's presentation, especially as the patient did not receive his morning metoprolol and recently received anesthesia. As such, metoprolol tartrate 5 mg IV push was given to the patient, to which he tolerated well. At the conclusion of the rapid, the patient's heart rate went down to 92 and blood pressure was 169/80. The patient seemed more calm and relaxed with cessation of his whole body shaking. Chest x-ray unremarkable for any acute processes, possibly some pneumonia on the left lung, however pending final read. Bedside echo did not find any right heart strain or any acute abnormalities in the heart. New orders:? Metoprolol tartrate 5 mg IVP EKG Troponin CBC CMP Lactic acid Chest x-ray ABG Patient was discussed with the attending, Dr. Lillie Martin, PGY-1
[2025-10-03 21:31] LABS: Alanine Aminotransferase 16 U/L (10-49); Albumin, Serum 4.0 gm/dL (3.4-4.8); Albumin/Globulin Ratio 1.3 (1.2-2.2); Alkaline Phosphatase 60 U/L (46-116); Anion Gap 11 (7-16); Aspartate Amino Transferase 23 U/L (0-34); BUN/Creatinine Ratio 20 Ratio (12-20); Bilirubin,Total 1.3 mg/dL (0.3-1.2); Blood Urea Nitrogen 20 mg/dL (9-23); Calcium 8.7 mg/dL (8.3-10.6); Calcium (Corrected) 8.7 mg/dL (8.5-10.1); Carbon Dioxide 34.4 mMol/L (20.0-31.0); Chloride 105 mMol/L (98-107); Creatinine (Component) 1.0 mg/dL (0.6-1.3); Estimated Creatinine Clearance 75.4 mL/min (>60); Globulin 3.1 gm/dL (2.3-3.5); Glucose 271 mg/dL (74-106); Osmolality,Calculated 310 (275-295); Potassium 3.4 mMol/L (3.4-5.1); Sodium 150 mMol/L (136-145); Total Protein 7.1 gm/dL (5.7-8.2); eGFR > 60 See Note
[2025-10-03 21:33] LABS: Troponin I 0.069 ng/mL (0.0-0.045)
[2025-10-03] MEDS: ATORVASTATIN CALCIUM 20 MG TABLET 80 MG PO (21:48)
[2025-10-03] MEDS: guaiFENesin SYRUP 200 MG/10 ML UDC 100 MG PO (21:48)
[2025-10-03 21:55] LABS: Base Excess 11 (-3-3); HCO3 36 mEq/L (20-26); Inspired Oxygen, FIO2 8 %; O2 Saturation 95 % (91-98); PCO2 52 mmHg (32.0-48.0); PO2 71 mmHg (83-108); pH, Arterial 7.46 (7.35-7.45)
[2025-10-03 21:57] LABS: Allen Test Performed/OK; Puncture Site Right Radial
[2025-10-03 22:25] LABS: Procalcitonin 0.16 ng/ml (0.0-0.49)
[2025-10-04] VITALS (12 sets, daily range): BP systolic 113–187; BP diastolic 59–120; PULSE 65–136; RESP 17–27; TEMP 36.1–36.3; O2SAT 92–100; BMI 23.8
[2025-10-04] MEDS: ALBUTEROL/IPRATROPIUM (Duoneb) RT SOL 3 ML NEBU INH ×4 (00:55→19:16)
[2025-10-04] MEDS: ACETYLCYSTEINE RT SOL 10% 4 ML NEBU 3 ML INH ×4 (00:55→19:16)
[2025-10-04] MEDS: DEXTROSE 5%-WATER 500 ML 125 ML IV (02:29)
[2025-10-04 02:49] LABS: Basophils # (Auto) 0.0 Thou/mm3 (0.0-0.2); Basophils % (Auto) 0 % (0-2.5); Eosinophils # (Auto) 0.0 Thou/mm3 (0.0-0.5); Eosinophils % (Auto) 0 % (0-10); Hematocrit 24.8 % (41.0-53.0); Immature Granulocytes Auto 0.08 Thou/mm3 (0.00-0.00); Lymphocytes # (Auto) 0.9 Thou/mm3 (1.0-4.8); Lymphocytes % (Auto) 9 % (10-50); Mean Corpuscular HGB Conc 30.6 g/dl (31.0-37.0); Mean Corpuscular Hemoglobin 26.5 pg (25.0-35.0); Mean Corpuscular Volume 86 fL (80-100); Monocytes # (Auto) 0.5 Thou/mm3 (0.0-0.8); Monocytes % (Auto) 5 % (0-12); Neutrophils # (Auto) 8.6 Thou/mm3 (1.8-7.7); Neutrophils % (Auto) 85 % (37-80); Nucleated Red Blood Cell # 0.02 Thou/mm3 (0.00-0.00); Nucleated Red Blood Cell % 0 /100 WBC (0); Platelet Count 234 Thou/mm3 (140-440); RDW Standard Deviation 44.7 fL (35.1-43.9); Red Blood Count 2.87 Miln/mm3 (4.50-5.90); White Blood Count 10.0 Thou/mm3 (3.8-10.6)
[2025-10-04 02:50] LABS: Hemoglobin 7.6 g/dL (13.5-16.0)
[2025-10-04 03:09] LABS: Alanine Aminotransferase 14 U/L (10-49); Albumin, Serum 3.6 gm/dL (3.4-4.8); Albumin/Globulin Ratio 1.2 (1.2-2.2); Alkaline Phosphatase 53 U/L (46-116); Anion Gap 10 (7-16); Aspartate Amino Transferase 21 U/L (0-34); BUN/Creatinine Ratio 21 Ratio (12-20); Bilirubin,Total 1.5 mg/dL (0.3-1.2); Blood Urea Nitrogen 19 mg/dL (9-23); Calcium 8.5 mg/dL (8.3-10.6); Calcium (Corrected) 8.8 mg/dL (8.5-10.1); Carbon Dioxide 34.2 mMol/L (20.0-31.0); Chloride 105 mMol/L (98-107); Creatinine (Component) 0.9 mg/dL (0.6-1.3); Estimated Creatinine Clearance 83.8 mL/min (>60); Globulin 2.9 gm/dL (2.3-3.5); Glucose 255 mg/dL (74-106); Magnesium 2.3 mg/dL (1.6-2.6); Osmolality,Calculated 307 (275-295); Phosphorous 2.6 mg/dL (2.4-5.1); Potassium 3.2 mMol/L (3.4-5.1); Sodium 149 mMol/L (136-145); Total Protein 6.5 gm/dL (5.7-8.2); eGFR > 60 See Note
[2025-10-04 03:11] LABS: Troponin I 0.069 ng/mL (0.0-0.045)
[2025-10-04] MEDS: POTASSIUM CHL 10 mEq IVPB 10 MEQ/100 ML BAG 100 MEQ IV ×4 (03:54→07:46)
[2025-10-04] MEDS: guaiFENesin SYRUP 200 MG/10 ML UDC 100 MG PO ×4 (05:31→20:43)
[2025-10-04] MEDS: INSULIN LISPRO (AdmeLOG) 1 UNIT/0.01 ML UNIT SC ×2 (05:31→18:46)
[2025-10-04] MEDS: ACETAMINOPHEN 325 MG TABLET 650 MG PO ×2 (06:00→20:43)
[2025-10-04] MEDS: NAPH,KPH MBDB 1 PACKET (1.5 GM) PO ×2 (07:47→16:50)
[2025-10-04 08:02] LABS: Troponin I 0.059 ng/mL (0.0-0.045)
[2025-10-04] MEDS: POTASSIUM CHLORIDE 10% 20 MEQ/15 ML UDC GT (08:18)
[2025-10-04] MEDS: CLOPIDOGREL BISULFATE 75 MG TABLET PO (08:18)
[2025-10-04] MEDS: APIXABAN 2.5 MG TABLET 5 MG PO ×2 (08:18→20:43)
[2025-10-04] MEDS: AMYLASE/LIPASE/PROTEASE CAPSULE (Pancreaze) 1 CAP PO (08:18)
[2025-10-04] MEDS: ENOXAPARIN SOD INJ 80 MG/0.8 ML SYRINGE SC (08:18)
[2025-10-04] MEDS: INSULIN LISPRO (AdmeLOG) 1 UNIT/0.01 ML UNIT 3 UNIT SC ×2 (08:19→18:45)
[2025-10-04] MEDS: INSULIN DEGLUDEC 5 UNIT/0.05 ML (PER 5 UNITS) 20 UNIT SC (08:19)
--- NOTE | 2025-10-04 09:35 | PC.DIETICIAN ---
Nutrition recommendations 1. Glucerna 1.2 at 20 ml/hr via PEG tube by pump. Advance 10 ml every 8 hrs to goal rate of 70 ml/hr x 24 hrs. If no IV fluids, water flushes of 30 ml/hr (or per MD). 2. Thiamine 100mg/day for 7 days. 3. Multivitamins/Minerals. 4. Vitamin C 500 mg BID 5. Zinc sulfate 220 mg once daily for 14 days
--- NOTE | 2025-10-04 09:58 | PC.SS ---
SS follow up note; Patient is on High flow 02. Weaning down. Patient will discharge back to [facility] when medically cleared.
[2025-10-04 10:28] LABS: Basophils # (Auto) 0.0 Thou/mm3 (0.0-0.2); Basophils % (Auto) 0 % (0-2.5); Eosinophils # (Auto) 0.0 Thou/mm3 (0.0-0.5); Eosinophils % (Auto) 0 % (0-10); Hematocrit 24.5 % (41.0-53.0); Immature Granulocytes Auto 0.05 Thou/mm3 (0.00-0.00); Lymphocytes # (Auto) 0.9 Thou/mm3 (1.0-4.8); Lymphocytes % (Auto) 9 % (10-50); Mean Corpuscular HGB Conc 31.0 g/dl (31.0-37.0); Mean Corpuscular Hemoglobin 26.9 pg (25.0-35.0); Mean Corpuscular Volume 87 fL (80-100); Monocytes # (Auto) 0.3 Thou/mm3 (0.0-0.8); Monocytes % (Auto) 4 % (0-12); Neutrophils # (Auto) 8.4 Thou/mm3 (1.8-7.7); Neutrophils % (Auto) 87 % (37-80); Nucleated Red Blood Cell # 0.00 Thou/mm3 (0.00-0.00); Nucleated Red Blood Cell % 0 /100 WBC (0); Platelet Count 231 Thou/mm3 (140-440); RDW Standard Deviation 44.9 fL (35.1-43.9); Red Blood Count 2.83 Miln/mm3 (4.50-5.90); White Blood Count 9.6 Thou/mm3 (3.8-10.6)
[2025-10-04 10:35] LABS: Hemoglobin 7.6 g/dL (13.5-16.0)
[2025-10-04 10:44] LABS: Alanine Aminotransferase 17 U/L (10-49); Albumin, Serum 3.3 gm/dL (3.4-4.8); Albumin/Globulin Ratio 1.1 (1.2-2.2); Alkaline Phosphatase 58 U/L (46-116); Anion Gap 7 (7-16); Aspartate Amino Transferase 21 U/L (0-34); BUN/Creatinine Ratio 28 Ratio (12-20); Bilirubin,Total 1.6 mg/dL (0.3-1.2); Blood Urea Nitrogen 22 mg/dL (9-23); Calcium 8.5 mg/dL (8.3-10.6); Calcium (Corrected) 9.1 mg/dL (8.5-10.1); Carbon Dioxide 33.2 mMol/L (20.0-31.0); Chloride 104 mMol/L (98-107); Creatinine (Component) 0.8 mg/dL (0.6-1.3); Estimated Creatinine Clearance 94.3 mL/min (>60); Globulin 2.9 gm/dL (2.3-3.5); Glucose 285 mg/dL (74-106); Osmolality,Calculated 300 (275-295); Potassium 3.7 mMol/L (3.4-5.1); Sodium 144 mMol/L (136-145); Total Protein 6.2 gm/dL (5.7-8.2); eGFR > 60 See Note
[2025-10-04] MEDS: VANCOMYCIN/WATER 1GM IVPB 200 ML IV (11:34)
--- NOTE | 2025-10-04 11:34 | PD.ANESPROG ---
Documentation for date of: 10/04/25 BRIEF ANESTHESIA NOTE (in response to the recent Event note): Patient had MAC for EGD PEG placement yesterday. On arrival to OR, his SBP was 180-190s and HR 100s sinus w/ frequent PACs. He was on high flow Oxymask O2 pre-op. I gave him 2 mg IV Metoprolol intra-op prior to procedure start and his HR trended down to 80s and SBP down to 130-140s. He was kept on 8-10 L of Oxymask O2 during the procedure. He received 1 mg IV Versed, 75 mcg IV Fentanyl, and about 75 mcg/kg/min of IV Propofol drip for about 20 minutes of procedure time, and about 500 cc of LR. He tolerated the entire procedure well. In PACU, his HR stayed 80s sinus with PACs, SBP 120-150s, O2 92-98% on 6 l/min Oxy mask, he was drowsy but responded appropriately. The paper anesthetic record is placed in the paper chart. Buddy Flores MD Anesthesia Progress Note Progress Note Most recent Vital Signs: Last Vital Signs Temp 97.4 F 10/04/25 08:00 Pulse 72 10/04/25 08:20 Resp 27 H 10/04/25 08:00 BP 113/61 10/04/25 08:20 Pulse Ox 100 10/04/25 08:00 O2 Del Method Oxy Mask 10/04/25 08:00 O2 Flow Rate 20 10/04/25 08:00 FiO2 40 10/04/25 08:00
[2025-10-04] MEDS: THIAMINE 100 MG TABLET GT (12:34)
[2025-10-04] MEDS: MULTIVITAMIN 15 ML UDC GT (12:34)
[2025-10-04] MEDS: ZINC SULFATE 220 MG CAPSULE GT (12:34)
--- NOTE | 2025-10-04 13:15 | ESPR_ITS ---
<Statement entered by Adry Kingston MD - 10/09/25 07:58> I reviewed above note and agree with findings and plans. I have also personally examined the patient with medicine team and went over assessment and plan with medical team including international editorial producer and resident physician. <Statement entered by Farzad Boss MD - 10/04/25 14:32> Patient was seen and examined at the bedside. Patient continues to remain on high flow nasal cannula due to underlying hypoxia and failure to be switched to nasal cannula. Will likely do a CTA to evaluate for PE or any other underlying cause of hypoxia. PEG tube feedings were initiated based on dietitian recommendations. Blood sugars were uncontrolled therefore insulin sliding scale along with long-acting insulin 20 units and add on insulin 3 units Q6 hourly were started. We held patient's metoprolol due to soft blood pressure. All labs and orders were reviewed. I discussed and supervised with the international editorial producer physician who took care of this patient. I personally saw and examined the patient. I agree with most of the assessment and plan. Disclaimer: Despite multiple revisions, due to the dictation software being used, the document bellow may not be free of grammatical errors including phonetic/typographic errors. However, this does not deter from our commitment to providing health care in the patient's best interest in mind. Plan of care discussed with attending Physician Dr. Primo Boss MD PGY-3 Documentation for date of: 10/04/25 Subjective Subjective Interval history: Rapid called overnight for MAP 50 and desaturation to mid 80s on 6 L oxygen mask which quickly resolved after it was turned up to 9 L. Atrial fibrillation with heart rate 110s to 150s noted which was likely secondary to not receiving morning metoprolol dose due to being n.p.o. as well as recent history of anesthesia for PEG tube placement metoprolol to tartrate 5 mg IV was pushed and EKG, troponin, CBC, CMP, lactic acid, CXR, and ABG were ordered. Vitals/labs today significant for RR 27, hemoglobin 8.2->7.6, sodium 149, potassium 3.2, blood glucose 255, T. bili 1.3->1.5, troponins have downtrended. Physical exam was non-contributory. Patient was examined at bedside; they remain on HFNC due to underlying hypoxia and failure to be switched to nasal cannula. Pulmonary CTA has been ordered to evaluate for PE or any other underlying cause of hypoxia. PEG tube feedings have been initiated based on dietary recommendations. Patient's metoprolol has been held due to soft blood pressures. Blood sugars today remain uncontrolled so insulin sliding scale, degludec 20 units, and baseline insulin 3 units every 6 hours have been started. Exam Vital Signs Temp Pulse Resp BP Pulse Ox O2 Del Method O2 Flow Rate 97.1 F 100 20 148/69 H 100 Oxy Mask 40 10/04/25 12:00 10/04/25 12:32 10/04/25 12:32 10/04/25 12:00 10/04/25 12:32 10/04/25 12:00 10/04/25 12:32 FiO2 40 10/04/25 12:00 Narrative Exam General: No acute distress; A&Ox3; resting in bed Skin: Warm, dry, intact, no obvious rash. HENT: NCAT, EOMI/PERRL, not icteric. External ears normal. No rhinorrhea. Dry mucous membranes Cardiovascular: Regular rate and rhythm, no murmur, +S1/S2. Respiratory: Coarse lung sounds bilaterally, HFNC in place GI: PEG tube in place. Soft, nontender, non-distended. No guarding or rebound tenderness. : No suprapubic tenderness. No flank tenderness bilaterally. Crane in place Extremities: trace pitting edema, no cyanosis, no clubbing. Extremity pulses present Neuro: Grossly nonfocal. Moving all 4 extremities. CN not formally tested but appear grossly intact. Psychiatric: appropriate affect, cooperative Objective Labs 10/04/25 07:25 10/04/25 07:25 Labs: Laboratory Results - last 24 hr 10/03/25 10/03/25 10/04/25 20:55 21:48 02:32 WBC 12.3 H D 10.0 RBC 3.11 L 2.87 L Hgb 8.2 L 7.6 L Hct 27.0 L 24.8 L MCV 87 86 MCH 26.4 26.5 MCHC 30.4 L 30.6 L RDW Std Deviation 44.7 H 44.7 H Plt Count 282 234 D Neut % (Auto) 83 H 85 H Lymph % (Auto) 11 9 L [place] % (Auto) 5 5 Eos % (Auto) 0 0 Baso % (Auto) 0 0 Neut # (Auto) 10.2 H 8.6 H Lymph # (Auto) 1.4 0.9 L [place] # (Auto) 0.6 0.5 Eos # (Auto) 0.0 0.0 Baso # (Auto) 0.0 0.0 Immature Gran # (Auto) 0.10 H 0.08 H Absolute Nucleated RBC 0.00 0.02 H Immature Gran % 1 H 1 H Nucleated RBC % 0 0 Puncture Site Right Radial ABG pH 7.46 H ABG pCO2 52 H ABG pO2 71 L D ABG HCO3 36 H ABG O2 Saturation 95 ABG Base Excess 11 H FiO2 8 Sodium 150 H 149 H Potassium 3.4 3.2 L Chloride 105 105 Carbon Dioxide 34.4 H 34.2 H Anion Gap 11 10 BUN 20 19 Creatinine 1.0 0.9 Estim Creat Clear Calc 75.4 83.8 eGFR > 60 > 60 BUN/Creatinine Ratio 20 21 H Glucose 271 H 255 H Calculated Osmolality 310 H 307 H Lactic Acid 1.7 Calcium 8.7 8.5 Corrected Calcium 8.7 8.8 Phosphorus 2.6 Magnesium 2.3 Total Bilirubin 1.3 H 1.5 H AST 23 21 ALT 16 14 Alkaline Phosphatase 60 53 Troponin I 0.069 H* 0.069 H* Total Protein 7.1 6.5 Albumin 4.0 3.6 Globulin 3.1 2.9 Albumin/Globulin Ratio 1.3 1.2 Procalcitonin 0.16 10/04/25 07:25 WBC 9.6 RBC 2.83 L Hgb 7.6 L Hct 24.5 L MCV 87 MCH 26.9 MCHC 31.0 RDW Std Deviation 44.9 H Plt Count 231 Neut % (Auto) 87 H Lymph % (Auto) 9 L [place] % (Auto) 4 Eos % (Auto) 0 Baso % (Auto) 0 Neut # (Auto) 8.4 H Lymph # (Auto) 0.9 L [place] # (Auto) 0.3 Eos # (Auto) 0.0 Baso # (Auto) 0.0 Immature Gran # (Auto) 0.05 H Absolute Nucleated RBC 0.00 Immature Gran % 1 H Nucleated RBC % 0 Puncture Site ABG pH ABG pCO2 ABG pO2 ABG HCO3 ABG O2 Saturation ABG Base Excess FiO2 Sodium 144 Potassium 3.7 D Chloride 104 Carbon Dioxide 33.2 H Anion Gap 7 BUN 22 Creatinine 0.8 Estim Creat Clear Calc 94.3 eGFR > 60 BUN/Creatinine Ratio 28 H Glucose 285 H Calculated Osmolality 300 H Lactic Acid Calcium 8.5 Corrected Calcium 9.1 Phosphorus Magnesium Total Bilirubin 1.6 H AST 21 ALT 17 Alkaline Phosphatase 58 Troponin I 0.059 H* Total Protein 6.2 Albumin 3.3 L Globulin 2.9 Albumin/Globulin Ratio 1.1 L Procalcitonin ABG Interpretation ABG results: 09/24/25 09/29/25 09/29/25 23:16 05:29 09:44 ABG pH 7.40 7.48 H 7.52 H ABG pCO2 45 43 39 ABG pO2 66 L 361 H 75 L D ABG HCO3 28 H 32 H 32 H ABG O2 Saturation 94 101 H 97 ABG Base Excess 3 8 H 8 H VBG pH VBG pCO2 VBG pO2 VBG Base Excess 10/01/25 10/03/25 10/03/25 10:53 10:51 21:48 ABG pH 7.40 D 7.46 H ABG pCO2 53 H D 52 H ABG pO2 117 H D 71 L D ABG HCO3 33 H 36 H ABG O2 Saturation 99 H 95 ABG Base Excess 7 H 11 H VBG pH 7.50 VBG pCO2 43 VBG pO2 97 H VBG Base Excess 9 H Quality Measures Quality Measures VTE prophylaxis Advance care planning discussed with:: other Assessment & Plan Assessment Current Active Medications: Generic Name Dose Route Start Last Admin Trade Name Freq PRN Reason Stop Dose Admin Acetaminophen 650 mg 09/24/25 13:29 10/04/25 06:00 Acetaminophen 325 Mg Tablet PO 10/24/25 13:28 650 mg Q6H PRN Administration Fever >100.5 Acetylcysteine 3 ml 10/01/25 13:00 10/04/25 12:31 Acetylcysteine Rt Adilene 10% 4 Ml Nebu INH 10/31/25 12:59 3 ml Q6HRRT DEYANIRA Administration Albuterol/Ipratropium 3 ml 09/27/25 13:49 10/04/25 12:31 Albuterol/Ipratropium (Duoneb) Rt Adilene 3 Ml Nebu INH 10/26/25 06:59 3 ml Q4HRRT PRN Administration shortness of breath Apixaban 5 mg 09/24/25 21:00 10/04/25 08:18 Apixaban 2.5 Mg Tablet PO 10/24/25 20:59 5 mg BID DEYANIRA Administration Atorvastatin Calcium 80 mg 09/24/25 21:00 10/03/25 21:48 Atorvastatin Calcium 20 Mg Tablet PO 10/24/25 20:59 80 mg HS DEYANIRA Administration Clopidogrel Bisulfate 75 mg 09/25/25 09:00 10/04/25 08:18 Clopidogrel Bisulfate 75 Mg Tablet PO 10/25/25 08:59 75 mg QDAY DEYANIRA Administration Dextrose 25 ml 09/24/25 14:56 09/24/25 22:41 Dextrose 50%-Water Inj 50 Ml Syringe IV 10/24/25 14:55 25 ml Q15MIN PRN Administration BG 50-70 responsive npo pt Dextrose 50 ml 09/24/25 14:56 Dextrose 50%-Water Inj 50 Ml Syringe IV 10/24/25 14:55 Q15MIN PRN BG <50 OR BG <70 & pt unresponsive Glucagon 1 mg 09/24/25 14:56 Glucagon Inj 1 Mg Vial IM Q15MIN PRN BG <70, and no IV access Guaifenesin 100 mg 09/27/25 21:00 10/04/25 12:34 Guaifenesin Syrup 200 Mg/10 Ml Udc PO 10/27/25 20:59 100 mg QID DEYANIRA Administration Protocol Vancomycin HCl 200 mls @ 120 mls/hr 09/29/25 10:15 10/04/25 11:34 Vancomycin/Water 1gm Ivpb IV 10/06/25 10:14 120 mls/hr BID@1000,2200 DEYANIRA Administration Protocol Insulin Degludec 20 unit 10/04/25 09:00 10/04/25 08:19 Insulin Degludec 5 Unit/0.05 Ml (Per 5 Units) SC 11/03/25 08:59 20 unit QDAY DEYANIRA Administration Insulin Human Lispro 0 unit 09/27/25 18:40 10/04/25 12:38 Insulin Lispro (Admelog) 1 Unit/0.01 Ml Unit SC 10/26/25 13:33 Not Given Q6HR [facility] Protocol Insulin Human Lispro 3 unit 10/04/25 07:45 10/04/25 12:38 Insulin Lispro (Admelog) 1 Unit/0.01 Ml Unit SC 11/03/25 07:44 Not Given Q6HR DEYANIRA Multivitamins/Minerals 15 ml 10/04/25 10:30 10/04/25 12:34 Multivitamin 15 Ml Udc GT 11/03/25 10:29 15 ml QDAY DEYANIRA Administration Ondansetron HCl 4 mg 09/24/25 13:29 Ondansetron Inj 2 Mg/Ml Inj 2 Ml IVP 10/24/25 13:28 Q6H PRN NAUSEA OR VOMITING Protocol Pancreatin 1 cap 09/26/25 14:30 10/04/25 08:18 Amylase/Lipase/Protease Capsule (Pancreaze) PO 10/26/25 14:29 1 cap QDAY DEYANIRA Administration Pantoprazole Sodium 40 mg 09/30/25 21:00 10/04/25 08:20 Pantoprazole Inj 40 Mg Vial IVP 10/30/25 20:59 40 mg BID DEYANIRA Administration Pharmacy Consult 1 each 09/29/25 10:15 Vancomycin Pharmacy To Dose 1 Each Each IV 10/29/25 10:14 QDAY PRN PROTOCOL Potassium Phos/Sodium Phos 1 packet 09/28/25 08:00 10/04/25 07:47 [facility] 1 Packet (1.5 Gm) PO 10/28/25 07:59 1 packet BIDWM DEYANIRA Administration Thiamine HCl 100 mg 10/04/25 10:30 10/04/25 12:34 Thiamine 100 Mg Tablet GT 11/03/25 10:29 100 mg QDAY DEYANIRA Administration Zinc Sulfate 220 mg 10/04/25 10:30 10/04/25 12:34 Zinc Sulfate 220 Mg Capsule GT 11/03/25 10:29 220 mg QDAY DEYANIRA Administration Plan 77-year-old male with past medical history (per nurse at [facility]) of CAD, A-Fib, on Eliquis, hypertension, CKD, type 2 diabetes, Parkinson's disease on hospice, depression, and anxiety who was admitted on 09/24/25 for AHRF secondary to pneumonia. #Acute hypoxic respiratory failure #Significant bibasilar pneumonia #??Aspiration pneumonia vs. aspiration pneumonitis #Sepsis, resolved Initial CXR showed early heart failure but CT A/P showed significant bibasilar pneumonia. CBC normal and Pro-Brian normal. Spoke to nurse at patient's SNF and states that patient at baseline is ANO x 3. Apparently patient is on hospice with primary diagnosis of Parkinson's disease with dysphagia. Suspect that patient presenting with aspiration versus community-acquired pneumonia Dx: -BCx, Cocci serology, COVID, and influenza negative -10/[address] ordered, showed diffuse significant bilateral pneumonia -10/03 pulmonary CTA ordered, showed ___ Rx: -Vancomycin 1 g IV QD [09/29-10/06] -Zosyn 3.375 g IV TID [09/26-10/03] -Continue encouraging incentive spirometry -Chest physiotherapy -Continue HFNC, wean as tolerated -BiPAP PRN #Dysphagia Patient was noted to have failed nurse swallow evaluation on 10/02 Dx: -Modified barium swallow screen ordered, failed by patient on 10/03 Rx: -PEG tube in place and feedings based on dietitian recommendations started -Speech therapy consulted -Registered dietitian consulted #Hypernatremia Patient was noted to have sodium 147->151 on 10/02, likely 2/2 dehydration from poor PO water intake Free water deficit of 1.4 10/03 sodium 151 despite D5W Rx: -D5W @ increased rate of 125 cc/hr -Monitor sodium daily #Hyperglycemia #Insulin-dependent T2DM Home medications: Degludec 21 U BID and Aspart 4 U w/ meals 10/03 blood glucose noted to be elevated at 272, likely 2/2 D5W being administered for treatment of hypernatremia Dx: -09/25/25 HgbA1c ordered, showed 7.9 Rx: -Degludec 20 U QD -Insulin 3 U Q6HR -SSI w/ hypoglycemic protocol in place #Hypertension 09/24 admission BP 213/84 Continues to be high Rx: -Labetalol 10 mg IV PRN for SBP over 180 or DBP over 120 -Will start antihypertensive regimen after PEG tube is placed #Diarrhea, improving Patient endorses diarrhea since admission Patient not tolerating foods very well, states it goes through him anything he eats/drinks Restarted his pancreas enzymes Loose stools continued, but reported as better formed Rx: -Amylase/lipase/protease 1 cap PO QD -Consulted dietitian -Speech therapy consulted, placed NPO #CAD #HTN Patient reported to have had NSTEMI in the last 6 months. Chart review states stent placed BP 213/84 on admission, restarted home meds below Echo 12/15 EF 60-65% Rx: ?Atorvastatin 80 mg HS ?Plavix 75 mg daily #Atrial fibrillation, currently sinus rhythm Home med of eliquis ? Eliquis 5 mg twice daily ? Metoprolol succinate 25 mg daily #Hyperbilirubinemia, improving #Transaminitis, resolved Patient TBili 2.4, AST 81 on admission No liver/gall bladder pathology history Liver US unremarkable #Anemia, normocytic #Thrombocytopenia, improved ? Will monitor for s/s bleeding #? BPH Moderate prostatomegaly found on CTAP ? Follow up outpatient with PCP #Osteopenia Patient found with advanced degenerative disc disease L4-S1 ? Follow up outpatient with PCP #Hypokalemia, resolved #hypophosphatemia, resolved ?Will continue to monitor and replete as necessary Hospital management: Disposition: Telemetry Fluids: D5W Diet: PEG tube feeds DVT prophylaxis: Eliquis 5 mg BID GI prophylaxis: Pantoprazole Crane: Placed CODE STATUS: Full Code ----- Plan discussed with attending physician Dr. Thee Tillman, DO PGY-1 Internal Medicine
--- NOTE | 2025-10-04 16:19 | PC.NURSE ---
Contacted RT Stevenson, patient has 20 in RAC and ready to go to CT. Patiently currently on 6L nc. RT will be available as soon as he is done in ED.
--- NOTE | 2025-10-04 17:08 | ESPR_ITS ---
Documentation for date of: 10/04/25 Subjective Subjective Interval history: PEG site looks good Patient on high flow nasal cannula Getting a CT chest for ruling out any PE The events of PEG placement were very uneventful and it went very well Exam Vital Signs Temp Pulse Resp BP Pulse Ox O2 Del Method O2 Flow Rate 97.1 F 100 20 148/69 H 100 Oxy Mask 40 10/04/25 12:00 10/04/25 12:32 10/04/25 12:32 10/04/25 12:00 10/04/25 12:32 10/04/25 12:00 10/04/25 12:32 FiO2 40 10/04/25 12:00 Objective Labs 10/04/25 07:25 10/04/25 07:25 Labs: Laboratory Results - last 24 hr 10/03/25 10/03/25 10/04/25 20:55 21:48 02:32 WBC 12.3 H D 10.0 RBC 3.11 L 2.87 L Hgb 8.2 L 7.6 L Hct 27.0 L 24.8 L MCV 87 86 MCH 26.4 26.5 MCHC 30.4 L 30.6 L RDW Std Deviation 44.7 H 44.7 H Plt Count 282 234 D Neut % (Auto) 83 H 85 H Lymph % (Auto) 11 9 L [place] % (Auto) 5 5 Eos % (Auto) 0 0 Baso % (Auto) 0 0 Neut # (Auto) 10.2 H 8.6 H Lymph # (Auto) 1.4 0.9 L [place] # (Auto) 0.6 0.5 Eos # (Auto) 0.0 0.0 Baso # (Auto) 0.0 0.0 Immature Gran # (Auto) 0.10 H 0.08 H Absolute Nucleated RBC 0.00 0.02 H Immature Gran % 1 H 1 H Nucleated RBC % 0 0 Puncture Site Right Radial ABG pH 7.46 H ABG pCO2 52 H ABG pO2 71 L D ABG HCO3 36 H ABG O2 Saturation 95 ABG Base Excess 11 H FiO2 8 Sodium 150 H 149 H Potassium 3.4 3.2 L Chloride 105 105 Carbon Dioxide 34.4 H 34.2 H Anion Gap 11 10 BUN 20 19 Creatinine 1.0 0.9 Estim Creat Clear Calc 75.4 83.8 eGFR > 60 > 60 BUN/Creatinine Ratio 20 21 H Glucose 271 H 255 H Calculated Osmolality 310 H 307 H Lactic Acid 1.7 Calcium 8.7 8.5 Corrected Calcium 8.7 8.8 Phosphorus 2.6 Magnesium 2.3 Total Bilirubin 1.3 H 1.5 H AST 23 21 ALT 16 14 Alkaline Phosphatase 60 53 Troponin I 0.069 H* 0.069 H* Total Protein 7.1 6.5 Albumin 4.0 3.6 Globulin 3.1 2.9 Albumin/Globulin Ratio 1.3 1.2 Procalcitonin 0.16 10/04/25 07:25 WBC 9.6 RBC 2.83 L Hgb 7.6 L Hct 24.5 L MCV 87 MCH 26.9 MCHC 31.0 RDW Std Deviation 44.9 H Plt Count 231 Neut % (Auto) 87 H Lymph % (Auto) 9 L [place] % (Auto) 4 Eos % (Auto) 0 Baso % (Auto) 0 Neut # (Auto) 8.4 H Lymph # (Auto) 0.9 L [place] # (Auto) 0.3 Eos # (Auto) 0.0 Baso # (Auto) 0.0 Immature Gran # (Auto) 0.05 H Absolute Nucleated RBC 0.00 Immature Gran % 1 H Nucleated RBC % 0 Puncture Site ABG pH ABG pCO2 ABG pO2 ABG HCO3 ABG O2 Saturation ABG Base Excess FiO2 Sodium 144 Potassium 3.7 D Chloride 104 Carbon Dioxide 33.2 H Anion Gap 7 BUN 22 Creatinine 0.8 Estim Creat Clear Calc 94.3 eGFR > 60 BUN/Creatinine Ratio 28 H Glucose 285 H Calculated Osmolality 300 H Lactic Acid Calcium 8.5 Corrected Calcium 9.1 Phosphorus Magnesium Total Bilirubin 1.6 H AST 21 ALT 17 Alkaline Phosphatase 58 Troponin I 0.059 H* Total Protein 6.2 Albumin 3.3 L Globulin 2.9 Albumin/Globulin Ratio 1.1 L Procalcitonin Impressions Impression: Failure to thrive Dysphagia failed swallowing evaluation PEG placement for enteral hyperalimentation Hypoxic respiratory failure being worked Continue current management ABG Interpretation ABG results: 09/24/25 09/29/25 09/29/25 23:16 05:29 09:44 ABG pH 7.40 7.48 H 7.52 H ABG pCO2 45 43 39 ABG pO2 66 L 361 H 75 L D ABG HCO3 28 H 32 H 32 H ABG O2 Saturation 94 101 H 97 ABG Base Excess 3 8 H 8 H VBG pH VBG pCO2 VBG pO2 VBG Base Excess 10/01/25 10/03/25 10/03/25 10:53 10:51 21:48 ABG pH 7.40 D 7.46 H ABG pCO2 53 H D 52 H ABG pO2 117 H D 71 L D ABG HCO3 33 H 36 H ABG O2 Saturation 99 H 95 ABG Base Excess 7 H 11 H VBG pH 7.50 VBG pCO2 43 VBG pO2 97 H VBG Base Excess 9 H Assessment & Plan A&P Narrative # Failure to thrive # Dysphagia # Failed swallow evaluation Plan Consent obtained for PEG tube placement under MAC N.p.o. Other medical problems include Acute hypoxic respiratory failure Diabetes mellitus type 2 essential hypertension CKD stage III Diabetes mellitus type 2 Dysphagia Thank you very much for the opportunity to participate in care of this patient Time Spent With Patient Time: Total time spent is greater than 50% in coordination of care (as documented) at patient's floor/unit and/or counseling patient:
[2025-10-04] MEDS: ATORVASTATIN CALCIUM 20 MG TABLET 80 MG PO (20:43)
[2025-10-04] MEDS: ASCORBIC ACID 250 MG TABLET 500 MG PO (20:43)
[2025-10-04] MEDS: METOPROLOL SUCCINATE XL 25 MG TABCR PO (20:46)
[2025-10-04 21:31] LABS: Vancomycin,Trough 47.4 mcg/mL (5.0-10.0)
--- NOTE | 2025-10-04 22:35 | PC.NURSE ---
Notified by night monitor that pt's HR has jumped to 140-150 intermittently but does not sustain. MD Martin contacted, 25 mg of Metoprolol ordered
[2025-10-04] MEDS: HYDROcodone/APAP 5/325 TABLET 1 TAB PO (23:02)
[2025-10-05] VITALS (12 sets, daily range): BP systolic 125–198; BP diastolic 64–133; PULSE 66–130; RESP 17–21; TEMP 35.9–36.7; O2SAT 91–100; BMI 23.8
[2025-10-05] MEDS: ACETYLCYSTEINE RT SOL 10% 4 ML NEBU 3 ML INH ×4 (00:46→18:46)
[2025-10-05] MEDS: ALBUTEROL/IPRATROPIUM (Duoneb) RT SOL 3 ML NEBU INH ×4 (00:46→18:46)
[2025-10-05] MEDS: HYDROcodone/APAP 5/325 TABLET 1 TAB PO (04:28)
[2025-10-05] MEDS: guaiFENesin SYRUP 200 MG/10 ML UDC 100 MG PO ×4 (05:09→20:41)
[2025-10-05 05:31] LABS: Basophils # (Auto) 0.0 Thou/mm3 (0.0-0.2); Basophils % (Auto) 0 % (0-2.5); Eosinophils # (Auto) 0.0 Thou/mm3 (0.0-0.5); Eosinophils % (Auto) 0 % (0-10); Hematocrit 24.4 % (41.0-53.0); Immature Granulocytes Auto 0.09 Thou/mm3 (0.00-0.00); Lymphocytes # (Auto) 1.0 Thou/mm3 (1.0-4.8); Lymphocytes % (Auto) 9 % (10-50); Mean Corpuscular HGB Conc 30.7 g/dl (31.0-37.0); Mean Corpuscular Hemoglobin 26.8 pg (25.0-35.0); Mean Corpuscular Volume 87 fL (80-100); Monocytes # (Auto) 0.4 Thou/mm3 (0.0-0.8); Monocytes % (Auto) 4 % (0-12); Neutrophils # (Auto) 10.0 Thou/mm3 (1.8-7.7); Neutrophils % (Auto) 87 % (37-80); Nucleated Red Blood Cell # 0.00 Thou/mm3 (0.00-0.00); Nucleated Red Blood Cell % 0 /100 WBC (0); Platelet Count 241 Thou/mm3 (140-440); RDW Standard Deviation 44.6 fL (35.1-43.9); Red Blood Count 2.80 Miln/mm3 (4.50-5.90); White Blood Count 11.5 Thou/mm3 (3.8-10.6)
[2025-10-05 05:32] LABS: Hemoglobin 7.5 g/dL (13.5-16.0)
[2025-10-05 06:12] LABS: Alanine Aminotransferase 13 U/L (10-49); Albumin, Serum 3.6 gm/dL (3.4-4.8); Albumin/Globulin Ratio 1.3 (1.2-2.2); Alkaline Phosphatase 57 U/L (46-116); Anion Gap 12 (7-16); Aspartate Amino Transferase 30 U/L (0-34); BUN/Creatinine Ratio 23 Ratio (12-20); Bilirubin,Total 1.9 mg/dL (0.3-1.2); Blood Urea Nitrogen 18 mg/dL (9-23); Calcium 8.4 mg/dL (8.3-10.6); Calcium (Corrected) 8.7 mg/dL (8.5-10.1); Carbon Dioxide 32.1 mMol/L (20.0-31.0); Chloride 104 mMol/L (98-107); Creatinine (Component) 0.8 mg/dL (0.6-1.3); Estimated Creatinine Clearance 94.3 mL/min (>60); Globulin 2.8 gm/dL (2.3-3.5); Glucose 154 mg/dL (74-106); Magnesium 2.2 mg/dL (1.6-2.6); Osmolality,Calculated 299 (275-295); Phosphorous 3.8 mg/dL (2.4-5.1); Potassium 3.6 mMol/L (3.4-5.1); Sodium 148 mMol/L (136-145); Total Protein 6.4 gm/dL (5.7-8.2); eGFR > 60 See Note
[2025-10-05] MEDS: LACTULOSE SYRUP 20 GM/30 ML UDC 30 GM GT (08:10)
[2025-10-05] MEDS: AMYLASE/LIPASE/PROTEASE CAPSULE (Pancreaze) 1 CAP PO (08:10)
[2025-10-05] MEDS: NAPH,KPH MBDB 1 PACKET (1.5 GM) PO ×2 (08:10→16:40)
[2025-10-05] MEDS: MULTIVITAMIN 15 ML UDC GT (08:11)
[2025-10-05] MEDS: CLOPIDOGREL BISULFATE 75 MG TABLET PO (08:11)
[2025-10-05] MEDS: ZINC SULFATE 220 MG CAPSULE GT (08:11)
[2025-10-05] MEDS: INSULIN DEGLUDEC 5 UNIT/0.05 ML (PER 5 UNITS) 20 UNIT SC (08:11)
[2025-10-05] MEDS: ASCORBIC ACID 250 MG TABLET 500 MG PO ×2 (08:11→20:42)
[2025-10-05] MEDS: THIAMINE INJ 100 MG/ML VIAL 2 ML IVP (08:29)
[2025-10-05] MEDS: APIXABAN 2.5 MG TABLET 5 MG PO ×2 (08:30→20:42)
--- NOTE | 2025-10-05 10:31 | XR_ITS ---
Examination: Venous duplex lower extremity sonogram, bilateral. Date and time of exam: October 05, 2025, 1110 hours INDICATIONS: Leg pain and swelling today Technique: Multiple sonographic images of the deep venous system have been obtained. B-mode/2-D grayscale imaging of vascular structures and Doppler spectral analysis (waveforms) and color performed Both legs are examined. Findings: Deep venous systems do not demonstrate abnormal echogenicity. All visualized deep veins exhibit compressibility. All visualized deep veins exhibit augmentation. Impression: Negative for deep vein thrombosis
[2025-10-05] MEDS: VANCOMYCIN/WATER 1GM IVPB 200 ML IV (10:38)
[2025-10-05] MEDS: INSULIN LISPRO (AdmeLOG) 1 UNIT/0.01 ML UNIT SC (12:34)
[2025-10-05] MEDS: INSULIN LISPRO (AdmeLOG) 1 UNIT/0.01 ML UNIT 3 UNIT SC ×2 (12:34→17:55)
--- NOTE | 2025-10-05 13:18 | ESPR_ITS ---
<Statement entered by Adry Kingston MD - 10/09/25 08:00> I reviewed above note and agree with findings and plans. I have also personally examined the patient with medicine team and went over assessment and plan with medical team including development intern and resident physician. <Statement entered by Farzad Boss MD - 10/05/25 17:47> Patient was seen and examined at the bedside. No acute overnight events were reported. Patient appears to be better than previous days. Although, patient reported that he feels weak. He was seen off of high flow nasal cannula and was currently saturating 90% at 4 L nasal cannula. Patient is tolerating tube feeds well. He denied having a bowel movement therefore lactulose was administered. Blood pressure is 148/80 with pulse 96. Hemoglobin is at 7.5. Kidney function remained stable. We canceled nuclear med VQ scan given low suspicion for PE as patient is off high flow. Doppler ultrasound lower extremities were ordered to rule out DVT. Rapid response was called at 13: 50 for rapid heart rate with EKG showing irregular rhythm therefore Metropol tartrate 25 mg was given x 1. Patient was also complaining of chest pain therefore all the labs were ordered including CBC, CMP, troponin, lactic acid, chest x-ray. Patient was given [place] 5/325 x 1 and [place] was placed as needed for pain management. Mottling was seen on the knees in the morning and in the afternoon like related to cold periphery which is chronic since his vitals were with blood pressure 151/94, heart rate 130s and saturating above 90% on 5 L nasal cannula.Lactic acid came back normal as well. [place] added for pain. We administered 40 meq KCL GT. No rib fractures seen on cxr. Will continue zosyn for uptrending white count as patient received Zosyn for 5 days and will continue course for total 10 days. We will closely monitor for pain. All labs and orders were reviewed. I discussed and supervised with the development intern physician who took care of this patient. I personally saw and examined the patient. I agree with most of the assessment and plan. Disclaimer: Despite multiple revisions, due to the dictation software being used, the document bellow may not be free of grammatical errors including phonetic/typographic errors. However, this does not deter from our commitment to providing health care in the patient's best interest in mind. Plan of care discussed with attending Physician Dr. Primo Boss MD PGY-3 Documentation for date of: 10/05/25 Subjective Subjective Interval history: (pulled from senior resident attestation) Patient was seen and examined at the bedside. No acute overnight events were reported. Patient appears to be better than previous days. Although, patient reported that he feels weak. He was seen off of high flow nasal cannula and was currently saturating 90% at 4 L nasal cannula. Patient is tolerating tube feeds well. He denied having a bowel movement therefore lactulose was administered. Blood pressure is 148/80 with pulse 96. Hemoglobin is at 7.5. Kidney function remained stable. We canceled nuclear med VQ scan given low suspicion for PE as patient is off high flow. Doppler ultrasound lower extremities were ordered to rule out DVT. Rapid response was called at 13: 50 for rapid heart rate with EKG showing irregular rhythm therefore Metropol tartrate 25 mg was given x 1. Patient was also complaining of chest pain therefore all the labs were ordered including CBC, CMP, troponin, lactic acid, chest x-ray. Patient was given [place] 5/325 x 1 and [place] was placed as needed for pain management. Mottling was seen on the knees in the morning and in the afternoon like related to cold periphery which is chronic since his vitals were with blood pressure 151/94, heart rate 130s and saturating above 90% on 5 L nasal cannula.Lactic acid came back normal as well. [place] added for pain. We administered 40 meq KCL GT. No rib fractures seen on cxr. Will continue zosyn for uptrending white count as patient received Zosyn for 5 days and will continue course for total 10 days. We will closely monitor for pain. All labs and orders were reviewed. Exam Vital Signs Temp Pulse Resp BP Pulse Ox O2 Del Method O2 Flow Rate 97.0 F 100 18 125/71 100 Nasal Cannula 3 10/05/25 12:00 10/05/25 12:58 10/05/25 12:58 10/05/25 12:00 10/05/25 12:58 10/05/25 12:00 10/05/25 12:58 FiO2 40 10/05/25 12:00 Narrative Exam General: No acute distress; A&Ox3; resting in bed Skin: Ecchymoses noted at sternum and left antecubital fossa. Warm, dry, intact, no obvious rash. HENT: NCAT, EOMI/PERRL, not icteric. External ears normal. No rhinorrhea. Dry mucous membranes Cardiovascular: Regular rate and rhythm, no murmur, +S1/S2. Respiratory: Coarse lung sounds bilaterally, HFNC in place GI: PEG tube in place. Soft, nontender, non-distended. No guarding or rebound tenderness. : No suprapubic tenderness. No flank tenderness bilaterally. Crane in place Extremities: Mottling of bilateral knees. Trace pitting edema, no cyanosis, no clubbing. Extremity pulses present Neuro: Grossly nonfocal. Moving all 4 extremities. CN not formally tested but appear grossly intact. Psychiatric: appropriate affect, cooperative Objective Labs 10/05/25 14:00 10/05/25 14:00 Labs: Laboratory Results - last 24 hr 10/04/25 10/05/25 20:45 04:36 WBC 11.5 H RBC 2.80 L Hgb 7.5 L Hct 24.4 L MCV 87 MCH 26.8 MCHC 30.7 L RDW Std Deviation 44.6 H Plt Count 241 Neut % (Auto) 87 H Lymph % (Auto) 9 L Rowan % (Auto) 4 Eos % (Auto) 0 Baso % (Auto) 0 Neut # (Auto) 10.0 H Lymph # (Auto) 1.0 Row[place] # (Auto) 0.4 Eos # (Auto) 0.0 Baso # (Auto) 0.0 Immature Gran # (Auto) 0.09 H Absolute Nucleated RBC 0.00 Immature Gran % 1 H Nucleated RBC % 0 Sodium 148 H Potassium 3.6 Chloride 104 Carbon Dioxide 32.1 H Anion Gap 12 BUN 18 Creatinine 0.8 Estim Creat Clear Calc 94.3 eGFR > 60 BUN/Creatinine Ratio 23 H Glucose 154 H D Calculated Osmolality 299 H Calcium 8.4 Corrected Calcium 8.7 Phosphorus 3.8 Magnesium 2.2 Total Bilirubin 1.9 H AST 30 ALT 13 Alkaline Phosphatase 57 Total Protein 6.4 Albumin 3.6 Globulin 2.8 Albumin/Globulin Ratio 1.3 Vancomycin Trough 47.4 H* ABG Interpretation ABG results: 09/24/25 09/29/25 09/29/25 23:16 05:29 09:44 ABG pH 7.40 7.48 H 7.52 H ABG pCO2 45 43 39 ABG pO2 66 L 361 H 75 L D ABG HCO3 28 H 32 H 32 H ABG O2 Saturation 94 101 H 97 ABG Base Excess 3 8 H 8 H VBG pH VBG pCO2 VBG pO2 VBG Base Excess 10/01/25 10/03/25 10/03/25 10:53 10:51 21:48 ABG pH 7.40 D 7.46 H ABG pCO2 53 H D 52 H ABG pO2 117 H D 71 L D ABG HCO3 33 H 36 H ABG O2 Saturation 99 H 95 ABG Base Excess 7 H 11 H VBG pH 7.50 VBG pCO2 43 VBG pO2 97 H VBG Base Excess 9 H Quality Measures Quality Measures VTE prophylaxis Advance care planning discussed with:: other Assessment & Plan Assessment Current Active Medications: Generic Name Dose Route Start Last Admin Trade Name Freq PRN Reason Stop Dose Admin Acetaminophen 650 mg 09/24/25 13:29 10/04/25 20:43 Acetaminophen 325 Mg Tablet PO 10/24/25 13:28 650 mg Q6H PRN Administration Fever >100.5 Acetylcysteine 3 ml 10/01/25 13:00 10/05/25 12:56 Acetylcysteine Rt Adilene 10% 4 Ml Nebu INH 10/31/25 12:59 3 ml Q6HRRT DEYANIRA Administration Albuterol/Ipratropium 3 ml 09/27/25 13:49 10/05/25 12:56 Albuterol/Ipratropium (Duoneb) Rt Adilene 3 Ml Nebu INH 10/26/25 06:59 3 ml Q4HRRT PRN Administration shortness of breath Apixaban 5 mg 09/24/25 21:00 10/05/25 08:30 Apixaban 2.5 Mg Tablet PO 10/24/25 20:59 5 mg BID DEYANIRA Administration Ascorbic Acid 500 mg 10/04/25 21:00 10/05/25 08:11 Ascorbic Acid 250 Mg Tablet PO 11/03/25 20:59 500 mg BID DEYANIRA Administration Atorvastatin Calcium 80 mg 09/24/25 21:00 10/04/25 20:43 Atorvastatin Calcium 20 Mg Tablet PO 10/24/25 20:59 80 mg HS DEYANIRA Administration Clopidogrel Bisulfate 75 mg 09/25/25 09:00 10/05/25 08:11 Clopidogrel Bisulfate 75 Mg Tablet PO 10/25/25 08:59 75 mg QDAY DEYANIRA Administration Dextrose 25 ml 09/24/25 14:56 09/24/25 22:41 Dextrose 50%-Water Inj 50 Ml Syringe IV 10/24/25 14:55 25 ml Q15MIN PRN Administration BG 50-70 responsive npo pt Dextrose 50 ml 09/24/25 14:56 Dextrose 50%-Water Inj 50 Ml Syringe IV 10/24/25 14:55 Q15MIN PRN BG <50 OR BG <70 & pt unresponsive Glucagon 1 mg 09/24/25 14:56 Glucagon Inj 1 Mg Vial IM Q15MIN PRN BG <70, and no IV access Guaifenesin 100 mg 09/27/25 21:00 10/05/25 12:31 Guaifenesin Syrup 200 Mg/10 Ml Udc PO 10/27/25 20:59 100 mg QID DEYANIRA Administration Protocol Vancomycin HCl 200 mls @ 120 mls/hr 10/05/25 10:00 10/05/25 10:38 Vancomycin/Water 1gm Ivpb IV 10/06/25 10:14 120 mls/hr QDAY@1000 DEYANIRA Administration Insulin Degludec 20 unit 10/04/25 09:00 10/05/25 08:11 Insulin Degludec 5 Unit/0.05 Ml (Per 5 Units) SC 11/03/25 08:59 20 unit QDAY DEYANIRA Administration Insulin Human Lispro 0 unit 09/27/25 18:40 10/05/25 12:34 Insulin Lispro (Admelog) 1 Unit/0.01 Ml Unit SC 10/26/25 13:33 4 unit Q6HR DEYANIRA Administration Protocol Insulin Human Lispro 3 unit 10/04/25 07:45 10/05/25 12:34 Insulin Lispro (Admelog) 1 Unit/0.01 Ml Unit SC 11/03/25 07:44 3 unit Q6HR DEYANIRA Administration Multivitamins/Minerals 15 ml 10/04/25 10:30 10/05/25 08:11 Multivitamin 15 Ml Udc GT 11/03/25 10:29 15 ml QDAY DEYANIRA Administration Ondansetron HCl 4 mg 09/24/25 13:29 Ondansetron Inj 2 Mg/Ml Inj 2 Ml IVP 10/24/25 13:28 Q6H PRN NAUSEA OR VOMITING Protocol Pancreatin 1 cap 12/16/25 14:30 10/05/25 08:10 Amylase/Lipase/Protease Capsule (Pancreaze) PO 10/26/25 14:29 1 cap QDAY DEYANIRA Administration Pantoprazole Sodium 40 mg 09/30/25 21:00 10/05/25 08:30 Pantoprazole Inj 40 Mg Vial IVP 10/30/25 20:59 40 mg BID DEYANIRA Administration Pharmacy Consult 1 each 09/29/25 10:15 Vancomycin Pharmacy To Dose 1 Each Each IV 10/29/25 10:14 QDAY PRN PROTOCOL Potassium Phos/Sodium Phos 1 packet 09/28/25 08:00 10/05/25 08:10 [place]db 1 Packet (1.5 Gm) PO 10/28/25 07:59 1 packet BIDWM DEYANIRA Administration Thiamine HCl 100 mg 10/05/25 09:00 10/05/25 08:29 Thiamine Inj 100 Mg/Ml Vial 2 Ml IVP 11/04/25 08:59 100 mg QDAY DEYANIRA Administration Zinc Sulfate 220 mg 10/04/25 10:30 10/05/25 08:11 Zinc Sulfate 220 Mg Capsule GT 11/03/25 10:29 220 mg QDAY DEYANIRA Administration Plan 77-year-old male with past medical history (per nurse at [facility]) of CAD, A-Fib, on Eliquis, hypertension, CKD, type 2 diabetes, Parkinson's disease on hospice, depression, and anxiety who was admitted on 09/24/25 for AHRF secondary to pneumonia. #Acute hypoxic respiratory failure #Significant bibasilar pneumonia #??Aspiration pneumonia vs. aspiration pneumonitis #Sepsis, resolved Initial CXR showed early heart failure but CT A/P showed significant bibasilar pneumonia. CBC normal and Pro-Brian normal. Spoke to nurse at patient's SNF and states that patient at baseline is ANO x 3. Apparently patient is on hospice with primary diagnosis of Parkinson's disease with dysphagia. Suspect that patient presenting with aspiration versus community-acquired pneumonia Dx: -BCx, Cocci serology, COVID, and influenza negative -10/[address] ordered, showed diffuse significant bilateral pneumonia -10/03 pulmonary CTA ordered but not pursued due to patient's allergy to iodinated contrast media -Had considered pursuing nuclear medicine VQ scan to rule out PE (patient's CXR did not align with his poor respiratory status) but this has been deferred for now due to spontaneous improvement and decrease in oxygen demand -10/05 venous doppler study ordered, negative for DVT Rx: -Vancomycin 1 g IV QD [09/29-10/06] -Zosyn 3.375 g IV TID [09/26-10/03] -Continue encouraging incentive spirometry -Chest physiotherapy -Continue HFNC, wean as tolerated -BiPAP PRN #Mottling of bilateral knees, likely 2/2 cold temperatures with lower suspicion for true systemic circulatory compromise On physical exam, patient has had continuous mottling of the bilateral knees (for which a rapid response had been called on 10/05 for) but this is currently not concerning for possible hypoperfusion due to patient's hypertensive blood pressures, good O2 saturations, and overall clinical improvement Suspected to be secondary to cold temperatures rather than any type of systemic circulatory compromise leading to tissue hypoperfusion Rx: -Continue to monitor #Ecchymoses of sternum and left antecubital fossa Dx: -CXR showed no findings suggestive of rib fracture Rx: -Continue to monitor #Dysphagia Patient was noted to have failed nurse swallow evaluation on 10/02 Dx: -Modified barium swallow screen ordered, failed by patient on 10/03 Rx: -PEG tube in place and feedings based on dietitian recommendations started -Speech therapy consulted -Registered dietitian consulted #Hypernatremia Patient was noted to have sodium 147->151 on 10/02, likely 2/2 dehydration from poor PO water intake Free water deficit of 1.4 10/03 sodium 151 despite D5W Rx: -D5W @ increased rate of 125 cc/hr -Monitor sodium daily #Hyperglycemia #Insulin-dependent T2DM Home medications: Degludec 21 U BID and Aspart 4 U w/ meals 10/03 blood glucose noted to be elevated at 272, likely 2/2 D5W being administered for treatment of hypernatremia Dx: -09/25/25 HgbA1c ordered, showed 7.9 Rx: -Degludec 20 U QD -Insulin 3 U Q6HR -SSI w/ hypoglycemic protocol in place #Hypertension 09/24 admission BP 213/84 Continues to be high Rx: -Labetalol 10 mg IV PRN for SBP over 180 or DBP over 120 -Will start antihypertensive regimen after PEG tube is placed #Constipation Patient complained of not having a bowel movement on 10/05 Rx: -Lactulose syrup #Diarrhea, resolved Patient endorses diarrhea since admission Patient not tolerating foods very well, states it goes through him anything he eats/drinks Restarted his pancreas enzymes Loose stools continued, but reported as better formed Rx: -Amylase/lipase/protease 1 cap PO QD -Consulted dietitian -Speech therapy consulted, placed NPO #CAD #HTN Patient reported to have had NSTEMI in the last 6 months. Chart review states stent placed BP 213/84 on admission, restarted home meds below Echo 09/25 EF 60-65% Rx: ?Atorvastatin 80 mg HS ?Plavix 75 mg daily #Atrial fibrillation Home med of eliquis On 10/05, a rapid response was called for rapid heart with EKG showing irregular rhythm for which patient was given metoprolol tartrate 25 mg x 1 Dx: -10/05 CBC, CMP, troponin, lactic acid, and CXR ordered in reaction to rapid response, showed nothing of concern Rx: ? Eliquis 5 mg twice daily ? Metoprolol succinate 25 mg daily #Hyperbilirubinemia, improving #Transaminitis, resolved Patient TBili 2.4, AST 81 on admission No liver/gall bladder pathology history Liver US unremarkable #Anemia, normocytic #Thrombocytopenia, improved ? Will monitor for s/s bleeding #? BPH Moderate prostatomegaly found on CTAP ? Follow up outpatient with PCP #Osteopenia Patient found with advanced degenerative disc disease L4-S1 ? Follow up outpatient with PCP #Hypokalemia, resolved #hypophosphatemia, resolved ?Will continue to monitor and replete as necessary Hospital management: Disposition: Telemetry Fluids: D5W Diet: PEG tube feeds DVT prophylaxis: Eliquis 5 mg BID GI prophylaxis: Pantoprazole Crane: Placed CODE STATUS: Full Code ----- Plan discussed with attending physician Dr. Thee Tillman, DO PGY-1 Internal Medicine
--- NOTE | 2025-10-05 13:36 | EKG_ITS ---
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
--- NOTE | 2025-10-05 13:38 | XR_ITS ---
EXAMINATION: AP chest single view TECHNIQUE: AP portable semiupright chest single view Date and time: October 05, 2025, 1352 hours, comparison October 03, 2025 INDICATION: Sepsis alert FINDINGS: Significant pneumonia left lung Mild prominence left ventricle Moderate osteopenia IMPRESSION: Significant pneumonia left lung
--- NOTE | 2025-10-05 13:40 | PC.NURSE ---
Received a call from [employer] that patient's HR went up to the 160's but did not sustained. Went to check on patient. Patient was lying in bed groaning saying he was having Chest pain and needed help. HR was in the 130's. Noticed Patient's knees were mottling. Called at rapid response at 13:30. Dr's aware of the mottling. Ordered pain medication and metoprolol for the heart rate. Will continue to assess patient.
[2025-10-05] MEDS: METOPROLOL TARTRATE 25 MG TABLET GT (13:50)
[2025-10-05] MEDS: HYDROcodone/APAP 5/325 TABLET 1 TAB GT (13:51)
--- NOTE | 2025-10-05 13:51 | EVENTNT_ITS ---
Documentation for date of: 10/05/25 Event Note Event Note: Event Note: 10/05/2025: Rapid response called sometime around 1:30 PM for HR 130s and BP 198/64 in the setting of bilateral knee mottling. Patient seen and assessed in hospital bed; they are awake with airway/breathing/circulation intact and vitals largely stable other than HR and BP. On physical exam, patient was noted to have the same bilateral knee mottling noted earlier. Repeat BP showed SBP in the 150s, lowering suspicion for true tissue hypoperfusion from shock etiology. Initially, troponin, CXR, and EKG were ordered due to patient complaints of chest pain; however, it is suspected that this pain is likely musculoskeletal in nature due to reproducibility on palpation of the chest wall. [place] was started for pain and metoprolol tartrate 25 mg IV x 1 was administered for patient's irregular tachycardia seen on EKG. Will follow up on lab studies and continue to monitor for any acute changes. Collin Tillman, DO Internal Medicine, PGY-1
[2025-10-05 14:09] LABS: Lactate (Lactic Acid) 1.5 mMol/L (0.4-2.0)
[2025-10-05 14:14] LABS: Basophils # (Auto) 0.0 Thou/mm3 (0.0-0.2); Basophils % (Auto) 0 % (0-2.5); Eosinophils # (Auto) 0.0 Thou/mm3 (0.0-0.5); Eosinophils % (Auto) 0 % (0-10); Hematocrit 25.5 % (41.0-53.0); Immature Granulocytes Auto 0.09 Thou/mm3 (0.00-0.00); Lymphocytes # (Auto) 1.1 Thou/mm3 (1.0-4.8); Lymphocytes % (Auto) 8 % (10-50); Mean Corpuscular HGB Conc 31.0 g/dl (31.0-37.0); Mean Corpuscular Hemoglobin 26.9 pg (25.0-35.0); Mean Corpuscular Volume 87 fL (80-100); Monocytes # (Auto) 0.6 Thou/mm3 (0.0-0.8); Monocytes % (Auto) 4 % (0-12); Neutrophils # (Auto) 12.6 Thou/mm3 (1.8-7.7); Neutrophils % (Auto) 88 % (37-80); Nucleated Red Blood Cell # 0.02 Thou/mm3 (0.00-0.00); Nucleated Red Blood Cell % 0 /100 WBC (0); Platelet Count 253 Thou/mm3 (140-440); RDW Standard Deviation 44.5 fL (35.1-43.9); Red Blood Count 2.94 Miln/mm3 (4.50-5.90); White Blood Count 14.4 Thou/mm3 (3.8-10.6)
[2025-10-05 14:16] LABS: Hemoglobin 7.9 g/dL (13.5-16.0)
[2025-10-05 14:31] LABS: Alanine Aminotransferase 17 U/L (10-49); Albumin, Serum 3.9 gm/dL (3.4-4.8); Albumin/Globulin Ratio 1.3 (1.2-2.2); Alkaline Phosphatase 66 U/L (46-116); Anion Gap 11 (7-16); Aspartate Amino Transferase 41 U/L (0-34); BUN/Creatinine Ratio 22 Ratio (12-20); Bilirubin,Total 1.9 mg/dL (0.3-1.2); Blood Urea Nitrogen 20 mg/dL (9-23); Calcium 8.6 mg/dL (8.3-10.6); Calcium (Corrected) 8.7 mg/dL (8.5-10.1); Carbon Dioxide 32.0 mMol/L (20.0-31.0); Chloride 106 mMol/L (98-107); Creatinine (Component) 0.9 mg/dL (0.6-1.3); Estimated Creatinine Clearance 83.8 mL/min (>60); Globulin 3.0 gm/dL (2.3-3.5); Glucose 178 mg/dL (74-106); Osmolality,Calculated 302 (275-295); Potassium 3.5 mMol/L (3.4-5.1); Sodium 149 mMol/L (136-145); Total Protein 6.9 gm/dL (5.7-8.2); eGFR > 60 See Note
[2025-10-05 14:34] LABS: Troponin I 0.051 ng/mL (0.0-0.045)
[2025-10-05] MEDS: POTASSIUM CHLORIDE 10% 20 MEQ/15 ML UDC 40 MEQ GT (15:14)
--- NOTE | 2025-10-05 16:14 | ESPR_ITS ---
Documentation for date of: 10/05/25 Subjective Subjective Interval history: Patient evaluated Status post present for PEG tube Rapid response this morning for tachycardia requiring metoprolol Exam Vital Signs Temp Pulse Resp BP Pulse Ox O2 Del Method O2 Flow Rate 97.0 F 123 H 18 159/113 H 100 Nasal Cannula 3 10/05/25 12:00 10/05/25 13:50 10/05/25 12:58 10/05/25 13:50 10/05/25 12:58 10/05/25 12:00 10/05/25 12:58 FiO2 40 10/05/25 12:00 Objective Labs 10/05/25 14:00 10/05/25 14:00 Labs: Laboratory Results - last 24 hr 10/04/25 10/05/25 10/05/25 20:45 04:36 14:00 WBC 11.5 H 14.4 H RBC 2.80 L 2.94 L Hgb 7.5 L 7.9 L Hct 24.4 L 25.5 L MCV 87 87 MCH 26.8 26.9 MCHC 30.7 L 31.0 RDW Std Deviation 44.6 H 44.5 H Plt Count 241 253 Neut % (Auto) 87 H 88 H Lymph % (Auto) 9 L 8 L Forrest % (Auto) 4 4 Eos % (Auto) 0 0 Baso % (Auto) 0 0 Neut # (Auto) 10.0 H 12.6 H Lymph # (Auto) 1.0 1.1 Forrest # (Auto) 0.4 0.6 Eos # (Auto) 0.0 0.0 Baso # (Auto) 0.0 0.0 Immature Gran # (Auto) 0.09 H 0.09 H Absolute Nucleated RBC 0.00 0.02 H Immature Gran % 1 H 1 H Nucleated RBC % 0 0 Sodium 148 H 149 H Potassium 3.6 3.5 Chloride 104 106 Carbon Dioxide 32.1 H 32.0 H Anion Gap 12 11 BUN 18 20 Creatinine 0.8 0.9 Estim Creat Clear Calc 94.3 83.8 eGFR > 60 > 60 BUN/Creatinine Ratio 23 H 22 H Glucose 154 H D 178 H Calculated Osmolality 299 H 302 H Lactic Acid 1.5 Calcium 8.4 8.6 Corrected Calcium 8.7 8.7 Phosphorus 3.8 Magnesium 2.2 Total Bilirubin 1.9 H 1.9 H AST 30 41 H ALT 13 17 Alkaline Phosphatase 57 66 Troponin I 0.051 H* Total Protein 6.4 6.9 Albumin 3.6 3.9 Globulin 2.8 3.0 Albumin/Globulin Ratio 1.3 1.3 Vancomycin Trough 47.4 H* Impressions Impression: Failure to thrive Dysphagia Status post PEG placement Continue current management ABG Interpretation ABG results: 09/24/25 09/29/25 09/29/25 23:16 05:29 09:44 ABG pH 7.40 7.48 H 7.52 H ABG pCO2 45 43 39 ABG pO2 66 L 361 H 75 L D ABG HCO3 28 H 32 H 32 H ABG O2 Saturation 94 101 H 97 ABG Base Excess 3 8 H 8 H VBG pH VBG pCO2 VBG pO2 VBG Base Excess 10/01/25 10/03/25 10/03/25 10:53 10:51 21:48 ABG pH 7.40 D 7.46 H ABG pCO2 53 H D 52 H ABG pO2 117 H D 71 L D ABG HCO3 33 H 36 H ABG O2 Saturation 99 H 95 ABG Base Excess 7 H 11 H VBG pH 7.50 VBG pCO2 43 VBG pO2 97 H VBG Base Excess 9 H Assessment & Plan A&P Narrative # Failure to thrive # Dysphagia # Failed swallow evaluation Plan Consent obtained for PEG tube placement under MAC N.p.o. Other medical problems include Acute hypoxic respiratory failure Diabetes mellitus type 2 essential hypertension CKD stage III Diabetes mellitus type 2 Dysphagia Thank you very much for the opportunity to participate in care of this patient Time Spent With Patient Time: Total time spent is greater than 50% in coordination of care (as documented) at patient's floor/unit and/or counseling patient:
[2025-10-05] MEDS: PIPER/TAZO 3.375 GM PREMIX 3.375 GM/50 ML BAG IV (16:39)
[2025-10-05] MEDS: ATORVASTATIN CALCIUM 20 MG TABLET 80 MG PO (20:42)
[2025-10-06] VITALS (17 sets, daily range): BP systolic 118–182; BP diastolic 65–93; PULSE 79–136; RESP 14–26; TEMP 36.1–36.7; O2SAT 72–102
[2025-10-06] MEDS: INSULIN LISPRO (AdmeLOG) 1 UNIT/0.01 ML UNIT 3 UNIT SC ×3 (00:17→11:46)
[2025-10-06] MEDS: PIPER/TAZO 3.375 GM PREMIX 3.375 GM/50 ML BAG IV ×4 (00:18→22:24)
[2025-10-06] MEDS: ALBUTEROL/IPRATROPIUM (Duoneb) RT SOL 3 ML NEBU INH ×4 (00:31→19:15)
[2025-10-06] MEDS: ACETYLCYSTEINE RT SOL 10% 4 ML NEBU 3 ML INH ×4 (00:31→19:14)
[2025-10-06] MEDS: guaiFENesin SYRUP 200 MG/10 ML UDC 100 MG PO ×4 (05:58→20:35)
[2025-10-06 06:18] LABS: Basophils # (Auto) 0.0 Thou/mm3 (0.0-0.2); Basophils % (Auto) 0 % (0-2.5); Eosinophils # (Auto) 0.0 Thou/mm3 (0.0-0.5); Eosinophils % (Auto) 0 % (0-10); Hematocrit 21.9 % (41.0-53.0); Immature Granulocytes Auto 0.10 Thou/mm3 (0.00-0.00); Lymphocytes # (Auto) 0.7 Thou/mm3 (1.0-4.8); Lymphocytes % (Auto) 6 % (10-50); Mean Corpuscular HGB Conc 30.6 g/dl (31.0-37.0); Mean Corpuscular Hemoglobin 26.8 pg (25.0-35.0); Mean Corpuscular Volume 88 fL (80-100); Monocytes # (Auto) 0.6 Thou/mm3 (0.0-0.8); Monocytes % (Auto) 5 % (0-12); Neutrophils # (Auto) 11.1 Thou/mm3 (1.8-7.7); Neutrophils % (Auto) 88 % (37-80); Nucleated Red Blood Cell # 0.00 Thou/mm3 (0.00-0.00); Nucleated Red Blood Cell % 0 /100 WBC (0); Platelet Count 215 Thou/mm3 (140-440); RDW Standard Deviation 45.8 fL (35.1-43.9); Red Blood Count 2.50 Miln/mm3 (4.50-5.90); White Blood Count 12.6 Thou/mm3 (3.8-10.6)
[2025-10-06 06:20] LABS: Hemoglobin 6.7 g/dL (13.5-16.0)
[2025-10-06 06:35] LABS: Alanine Aminotransferase 16 U/L (10-49); Albumin, Serum 3.4 gm/dL (3.4-4.8); Albumin/Globulin Ratio 1.3 (1.2-2.2); Alkaline Phosphatase 68 U/L (46-116); Anion Gap 11 (7-16); Aspartate Amino Transferase 44 U/L (0-34); BUN/Creatinine Ratio 25 Ratio (12-20); Bilirubin,Total 1.8 mg/dL (0.3-1.2); Blood Urea Nitrogen 20 mg/dL (9-23); Calcium 8.3 mg/dL (8.3-10.6); Calcium (Corrected) 8.8 mg/dL (8.5-10.1); Carbon Dioxide 31.2 mMol/L (20.0-31.0); Chloride 107 mMol/L (98-107); Creatinine (Component) 0.8 mg/dL (0.6-1.3); Estimated Creatinine Clearance 94.3 mL/min (>60); Globulin 2.6 gm/dL (2.3-3.5); Glucose 173 mg/dL (74-106); Magnesium 2.2 mg/dL (1.6-2.6); Osmolality,Calculated 302 (275-295); Phosphorous 2.9 mg/dL (2.4-5.1); Potassium 4.0 mMol/L (3.4-5.1); Sodium 149 mMol/L (136-145); Total Protein 6.0 gm/dL (5.7-8.2); eGFR > 60 See Note
[2025-10-06 06:43] LABS: Path Review Blood Smear Sent to Pathologist
[2025-10-06] MEDS: THIAMINE INJ 100 MG/ML VIAL 2 ML IVP (08:35)
[2025-10-06] MEDS: HYDROcodone/APAP 5/325 TABLET 1 TAB GT (08:36)
[2025-10-06] MEDS: ASCORBIC ACID 250 MG TABLET 500 MG PO ×2 (08:36→20:31)
[2025-10-06] MEDS: ZINC SULFATE 220 MG CAPSULE GT (08:36)
[2025-10-06] MEDS: MULTIVITAMIN 15 ML UDC GT (08:36)
[2025-10-06] MEDS: INSULIN DEGLUDEC 5 UNIT/0.05 ML (PER 5 UNITS) 20 UNIT SC (08:36)
[2025-10-06] MEDS: NAPH,KPH MBDB 1 PACKET (1.5 GM) PO ×2 (08:36→17:13)
[2025-10-06] MEDS: AMYLASE/LIPASE/PROTEASE CAPSULE (Pancreaze) 1 CAP PO (08:36)
[2025-10-06 08:47] LABS: Iron 30 mcg/dL (65-175); Percent Iron Saturation 12 % (20-55); Total Iron Binding Capacity 243 mcg/dL (250-425); Unsaturated Iron Binding 213 (225-295)
[2025-10-06] MEDS: VANCOMYCIN/WATER 1GM IVPB 200 ML IV (09:50)
[2025-10-06] MEDS: INSULIN LISPRO (AdmeLOG) 1 UNIT/0.01 ML UNIT SC (11:45)
[2025-10-06] MEDS: METOPROLOL TARTRATE 25 MG TABLET 12.5 MG PO ×2 (12:33→20:34)
--- NOTE | 2025-10-06 12:36 | PD.IMPROG ---
Documentation for date of: 10/06/25 Subjective Subjective Interval history: PEG site looks a little inflamed clean with Betadine Went over the nursing staff how to clean the PEG site Exam Vital Signs Temp Pulse Resp BP Pulse Ox O2 Del Method O2 Flow Rate 97.9 F 108 H 20 145/80 H 98 Nasal Cannula 3 10/06/25 12:04 10/06/25 12:04 10/06/25 12:04 10/06/25 12:04 10/06/25 12:04 10/06/25 08:00 10/06/25 12:04 FiO2 40 10/05/25 16:00 Objective Labs 10/06/25 05:40 10/06/25 05:40 Labs: Laboratory Results - last 24 hr 10/05/25 10/06/25 10/06/25 14:00 05:40 07:40 WBC 14.4 H 12.6 H RBC 2.94 L 2.50 L Hgb 7.9 L 6.7 L* Hct 25.5 L 21.9 L* MCV 87 88 MCH 26.9 26.8 MCHC 31.0 30.6 L RDW Std Deviation 44.5 H 45.8 H Plt Count 253 215 D Neut % (Auto) 88 H 88 H Lymph % (Auto) 8 L 6 L [place] % (Auto) 4 5 Eos % (Auto) 0 0 Baso % (Auto) 0 0 Neut # (Auto) 12.6 H 11.1 H Lymph # (Auto) 1.1 0.7 L [place] # (Auto) 0.6 0.6 Eos # (Auto) 0.0 0.0 Baso # (Auto) 0.0 0.0 Immature Gran # (Auto) 0.09 H 0.10 H Absolute Nucleated RBC 0.02 H 0.00 Immature Gran % 1 H 1 H Nucleated RBC % 0 0 Smear Path Review Sent to Pathologist Sodium 149 H 149 H Potassium 3.5 4.0 D Chloride 106 107 Carbon Dioxide 32.0 H 31.2 H Anion Gap 11 11 BUN 20 20 Creatinine 0.9 0.8 Estim Creat Clear Calc 83.8 94.3 eGFR > 60 > 60 BUN/Creatinine Ratio 22 H 25 H Glucose 178 H 173 H Calculated Osmolality 302 H 302 H Lactic Acid 1.5 Calcium 8.6 8.3 Corrected Calcium 8.7 8.8 Phosphorus 2.9 Magnesium 2.2 Iron TIBC Iron Saturation Unsat Iron Binding Total Bilirubin 1.9 H 1.8 H AST 41 H 44 H ALT 17 16 Alkaline Phosphatase 66 68 Troponin I 0.051 H* Total Protein 6.9 6.0 Albumin 3.9 3.4 D Globulin 3.0 2.6 Albumin/Globulin Ratio 1.3 1.3 Blood Type B Positive Antibody Screen NEGATIVE Crossmatch See Detail Blood Bank Wristband ID Yes 10/06/25 07:47 WBC RBC Hgb Hct MCV MCH MCHC RDW Std Deviation Plt Count Neut % (Auto) Lymph % (Auto) [place] % (Auto) Eos % (Auto) Baso % (Auto) Neut # (Auto) Lymph # (Auto) [place] # (Auto) Eos # (Auto) Baso # (Auto) Immature Gran # (Auto) Absolute Nucleated RBC Immature Gran % Nucleated RBC % Smear Path Review Sodium Potassium Chloride Carbon Dioxide Anion Gap BUN Creatinine Estim Creat Clear Calc eGFR BUN/Creatinine Ratio Glucose Calculated Osmolality Lactic Acid Calcium Corrected Calcium Phosphorus Magnesium Iron 30 L TIBC 243 L Iron Saturation 12 L Unsat Iron Binding 213 L Total Bilirubin AST ALT Alkaline Phosphatase Troponin I Total Protein Albumin Globulin Albumin/Globulin Ratio Blood Type Antibody Screen Crossmatch Blood Bank Wristband ID Impressions Impression: Failure to thrive Dysphagia PEG tube care as advised ABG Interpretation ABG results: 09/24/25 09/29/25 09/29/25 23:16 05:29 09:44 ABG pH 7.40 7.48 H 7.52 H ABG pCO2 45 43 39 ABG pO2 66 L 361 H 75 L D ABG HCO3 28 H 32 H 32 H ABG O2 Saturation 94 101 H 97 ABG Base Excess 3 8 H 8 H VBG pH VBG pCO2 VBG pO2 VBG Base Excess 10/01/25 10/03/25 10/03/25 10:53 10:51 21:48 ABG pH 7.40 D 7.46 H ABG pCO2 53 H D 52 H ABG pO2 117 H D 71 L D ABG HCO3 33 H 36 H ABG O2 Saturation 99 H 95 ABG Base Excess 7 H 11 H VBG pH 7.50 VBG pCO2 43 VBG pO2 97 H VBG Base Excess 9 H Assessment & Plan A&P Narrative # Failure to thrive # Dysphagia # Failed swallow evaluation Plan Consent obtained for PEG tube placement under MAC N.p.o. Other medical problems include Acute hypoxic respiratory failure Diabetes mellitus type 2 essential hypertension CKD stage III Diabetes mellitus type 2 Dysphagia Thank you very much for the opportunity to participate in care of this patient Time Spent With Patient Time: Total time spent is greater than 50% in coordination of care (as documented) at patient's floor/unit and/or counseling patient:
--- NOTE | 2025-10-06 13:08 | ESPR_ITS ---
Documentation for date of: 10/06/25 Subjective Subjective Interval history: Overnight, Hgb 6.7, transfused 1 unit pRBCs. Also in afib RVR with HR in 136 in AM, given metoprolol tartrate 2.5 IVP x2 with improvement. Home medication included metoprolol succinate 25 mg daily, will start on metoprolol tartrate 12.5 mg BID due to PEG tube limitation. Ordered FOBT due to anemia. Held Plavix and Eliquis today. Post transfusion H&H 7.7. Started 500 cc free water flushes with feedings due to mild hypernatremia. Exam Vital Signs Temp Pulse Resp BP Pulse Ox O2 Del Method O2 Flow Rate 97.9 F 108 H 20 145/80 H 98 Nasal Cannula 3 10/06/25 12:04 10/06/25 12:33 10/06/25 12:04 10/06/25 12:33 10/06/25 12:04 10/06/25 08:00 10/06/25 12:04 FiO2 40 10/05/25 16:00 Narrative Exam General: No acute distress; A&Ox3; resting in bed Skin: Ecchymoses noted at sternum and left antecubital fossa. Warm, dry, intact, no obvious rash. HENT: NCAT, EOMI/PERRL, not icteric. External ears normal. No rhinorrhea. Dry mucous membranes Cardiovascular: Regular rate and rhythm, no murmur, +S1/S2. Respiratory: Mild coarse lung sounds bilaterally, off O2 GI: PEG tube in place. Soft, nontender, non-distended. No guarding or rebound tenderness. : No suprapubic tenderness. No flank tenderness bilaterally. Crane in place Extremities: Mottling of bilateral knees. Trace pitting edema, no cyanosis, no clubbing. Extremity pulses present Neuro: Grossly nonfocal. Moving all 4 extremities. CN not formally tested but appear grossly intact. Psychiatric: appropriate affect, cooperative Objective Labs 10/07/25 04:56 10/07/25 04:56 Labs: Laboratory Results - last 24 hr 10/05/25 10/06/25 10/06/25 14:00 05:40 07:40 WBC 14.4 H 12.6 H RBC 2.94 L 2.50 L Hgb 7.9 L 6.7 L* Hct 25.5 L 21.9 L* MCV 87 88 MCH 26.9 26.8 MCHC 31.0 30.6 L RDW Std Deviation 44.5 H 45.8 H Plt Count 253 215 D Neut % (Auto) 88 H 88 H Lymph % (Auto) 8 L 6 L [place] % (Auto) 4 5 Eos % (Auto) 0 0 Baso % (Auto) 0 0 Neut # (Auto) 12.6 H 11.1 H Lymph # (Auto) 1.1 0.7 L [place] # (Auto) 0.6 0.6 Eos # (Auto) 0.0 0.0 Baso # (Auto) 0.0 0.0 Immature Gran # (Auto) 0.09 H 0.10 H Absolute Nucleated RBC 0.02 H 0.00 Immature Gran % 1 H 1 H Nucleated RBC % 0 0 Smear Path Review Sent to Pathologist Sodium 149 H 149 H Potassium 3.5 4.0 D Chloride 106 107 Carbon Dioxide 32.0 H 31.2 H Anion Gap 11 11 BUN 20 20 Creatinine 0.9 0.8 Estim Creat Clear Calc 83.8 94.3 eGFR > 60 > 60 BUN/Creatinine Ratio 22 H 25 H Glucose 178 H 173 H Calculated Osmolality 302 H 302 H Lactic Acid 1.5 Calcium 8.6 8.3 Corrected Calcium 8.7 8.8 Phosphorus 2.9 Magnesium 2.2 Iron TIBC Iron Saturation Unsat Iron Binding Total Bilirubin 1.9 H 1.8 H AST 41 H 44 H ALT 17 16 Alkaline Phosphatase 66 68 Troponin I 0.051 H* Total Protein 6.9 6.0 Albumin 3.9 3.4 D Globulin 3.0 2.6 Albumin/Globulin Ratio 1.3 1.3 Blood Type B Positive Antibody Screen NEGATIVE Crossmatch See Detail Blood Bank Wristband ID Yes 10/06/25 07:47 WBC RBC Hgb Hct MCV MCH MCHC RDW Std Deviation Plt Count Neut % (Auto) Lymph % (Auto) [place] % (Auto) Eos % (Auto) Baso % (Auto) Neut # (Auto) Lymph # (Auto) [place] # (Auto) Eos # (Auto) Baso # (Auto) Immature Gran # (Auto) Absolute Nucleated RBC Immature Gran % Nucleated RBC % Smear Path Review Sodium Potassium Chloride Carbon Dioxide Anion Gap BUN Creatinine Estim Creat Clear Calc eGFR BUN/Creatinine Ratio Glucose Calculated Osmolality Lactic Acid Calcium Corrected Calcium Phosphorus Magnesium Iron 30 L TIBC 243 L Iron Saturation 12 L Unsat Iron Binding 213 L Total Bilirubin AST ALT Alkaline Phosphatase Troponin I Total Protein Albumin Globulin Albumin/Globulin Ratio Blood Type Antibody Screen Crossmatch Blood Bank Wristband ID ABG Interpretation ABG results: 09/24/25 09/29/25 09/29/25 23:16 05:29 09:44 ABG pH 7.40 7.48 H 7.52 H ABG pCO2 45 43 39 ABG pO2 66 L 361 H 75 L D ABG HCO3 28 H 32 H 32 H ABG O2 Saturation 94 101 H 97 ABG Base Excess 3 8 H 8 H VBG pH VBG pCO2 VBG pO2 VBG Base Excess 10/01/25 10/03/25 10/03/25 10:53 10:51 21:48 ABG pH 7.40 D 7.46 H ABG pCO2 53 H D 52 H ABG pO2 117 H D 71 L D ABG HCO3 33 H 36 H ABG O2 Saturation 99 H 95 ABG Base Excess 7 H 11 H VBG pH 7.50 VBG pCO2 43 VBG pO2 97 H VBG Base Excess 9 H Quality Measures Quality Measures VTE prophylaxis Advance care planning discussed with:: patient Assessment & Plan Assessment Current Active Medications: Generic Name Dose Route Start Last Admin Trade Name Freq PRN Reason Stop Dose Admin Acetaminophen 650 mg 10/05/25 13:41 Acetaminophen 325 Mg Tablet PO 10/24/25 13:28 Q6H PRN Fever >100.5 and pain 1-3 Hydrocodone Bitart/Acetaminophen 1 tab 10/05/25 13:41 10/06/25 08:36 Hydrocodone/Apap 5/325 Tablet GT 10/10/25 13:40 1 tab Q6HR PRN Administration pain 4-8 Acetylcysteine 3 ml 10/01/25 13:00 10/06/25 08:59 Acetylcysteine Rt [place]il[place] 10% 4 Ml Nebu INH 10/31/25 12:59 3 ml Q6HRRT DEYANIRA Administration Albuterol/Ipratropium 3 ml 09/27/25 13:49 10/06/25 08:59 Albuterol/Ipratropium (Duoneb) Rt Adilene 3 Ml Nebu INH 10/26/25 06:59 3 ml Q4HRRT PRN Administration shortness of breath Apixaban 5 mg 09/24/25 21:00 10/05/25 20:42 Apixaban 2.5 Mg Tablet PO 10/24/25 20:59 5 mg On Hold: 10/06/25 07:45 BID DEYANIRA Administration Ascorbic Acid 500 mg 10/04/25 21:00 10/06/25 08:36 Ascorbic Acid 250 Mg Tablet PO 11/03/25 20:59 500 mg BID DEYANIRA Administration Atorvastatin Calcium 80 mg 09/24/25 21:00 10/05/25 20:42 Atorvastatin Calcium 20 Mg Tablet PO 10/24/25 20:59 80 mg HS DEYANIRA Administration Clopidogrel Bisulfate 75 mg 09/25/25 09:00 10/05/25 08:11 Clopidogrel Bisulfate 75 Mg Tablet PO 10/25/25 08:59 75 mg On Hold: 10/06/25 07:45 QDAY DEYANIRA Administration Dextrose 25 ml 09/24/25 14:56 09/24/25 22:41 Dextrose 50%-Water Inj 50 Ml Syringe IV 10/24/25 14:55 25 ml Q15MIN PRN Administration BG 50-70 responsive npo pt Dextrose 50 ml 09/24/25 14:56 Dextrose 50%-Water Inj 50 Ml Syringe IV 10/24/25 14:55 Q15MIN PRN BG <50 OR BG <70 & pt unresponsive Glucagon 1 mg 09/24/25 14:56 Glucagon Inj 1 Mg Vial IM Q15MIN PRN BG <70, and no IV access Guaifenesin 100 mg 09/27/25 21:00 10/06/25 11:45 Guaifenesin Syrup 200 Mg/10 Ml Udc PO 10/27/25 20:59 100 mg QID DEYANIRA Administration Protocol Piperacillin/Tazobactam/Dextrose 3.375 gm in 50 mls @ 12.5 mls/hr 10/06/25 14:00 Zosyn IV 10/13/25 13:59 Q8HR [facility] Protocol Insulin Degludec 20 unit 10/04/25 09:00 10/06/25 08:36 Insulin Degludec 5 Unit/0.05 Ml (Per 5 Units) SC 11/03/25 08:59 20 unit QDAY DEYANIRA Administration Insulin Human Lispro 0 unit 09/27/25 18:40 10/06/25 11:45 Insulin Lispro (Admelog) 1 Unit/0.01 Ml Unit SC 10/26/25 13:33 3 unit Q6HR DEYANIRA Administration Protocol Insulin Human Lispro 3 unit 10/04/25 07:45 10/06/25 11:46 Insulin Lispro (Admelog) 1 Unit/0.01 Ml Unit SC 11/03/25 07:44 3 unit Q6HR DEYANIRA Administration Metoprolol Tartrate 12.5 mg 10/06/25 12:05 10/06/25 12:33 Metoprolol Tartrate 25 Mg Tablet PO 11/05/25 12:04 12.5 mg BID DEYANIRA Administration Multivitamins/Minerals 15 ml 10/04/25 10:30 10/06/25 08:36 Multivitamin 15 Ml Udc GT 11/03/25 10:29 15 ml QDAY DEYANIRA Administration Ondansetron HCl 4 mg 09/24/25 13:29 Ondansetron Inj 2 Mg/Ml Inj 2 Ml IVP 10/24/25 13:28 Q6H PRN NAUSEA OR VOMITING Protocol Pancreatin 1 cap 09/26/25 14:30 10/06/25 08:36 Amylase/Lipase/Protease Capsule (Pancreaze) PO 10/26/25 14:29 1 cap QDAY DEYANIRA Administration Pantoprazole Sodium 40 mg 09/30/25 21:00 10/06/25 08:35 Pantoprazole Inj 40 Mg Vial IVP 10/30/25 20:59 40 mg BID DEYANIRA Administration Pharmacy Consult 1 each 09/29/25 10:15 Vancomycin Pharmacy To Dose 1 Each Each IV 10/29/25 10:14 QDAY PRN PROTOCOL Potassium Phos/Sodium Phos 1 packet 09/28/25 08:00 10/06/25 08:36 [facility] 1 Packet (1.5 Gm) PO 10/28/25 07:59 1 packet BIDWM DEYANIRA Administration Thiamine HCl 100 mg 10/05/25 09:00 10/06/25 08:35 Thiamine Inj 100 Mg/Ml Vial 2 Ml IVP 11/04/25 08:59 100 mg QDAY DEYANIRA Administration Zinc Sulfate 220 mg 10/04/25 10:30 10/06/25 08:36 Zinc Sulfate 220 Mg Capsule GT 11/03/25 10:29 220 mg QDAY DEYANIRA Administration Plan 77-year-old male with past medical history (per nurse at [facility]) of CAD, A-Fib, on Eliquis, hypertension, CKD, type 2 diabetes, Parkinson's disease on hospice, depression, and anxiety who was admitted on 09/24/25 for AHRF secondary to pneumonia. #Acute hypoxic respiratory failure #Significant bibasilar pneumonia #??Aspiration pneumonia vs. aspiration pneumonitis #Sepsis, resolved Initial CXR showed early heart failure but CT A/P showed significant bibasilar pneumonia. CBC normal and Pro-Brian normal. Spoke to nurse at patient's SNF and states that patient at baseline is ANO x 3. Apparently patient is on hospice with primary diagnosis of Parkinson's disease with dysphagia. Suspect that patient presenting with aspiration versus community-acquired pneumonia Dx: -BCx, Cocci serology, COVID, and influenza negative -10/[address] ordered, showed diffuse significant bilateral pneumonia -10/03 pulmonary CTA ordered but not pursued due to patient's allergy to iodinated contrast media -Had considered pursuing nuclear medicine VQ scan to rule out PE (patient's CXR did not align with his poor respiratory status) but this has been deferred for now due to spontaneous improvement and decrease in oxygen demand -10/05 venous doppler study ordered, negative for DVT Rx: -Vancomycin 1 g IV QD [09/29-10/06] -Zosyn 3.375 g IV TID [09/26-10/03] -Continue encouraging incentive spirometry -Chest physiotherapy -BiPAP PRN #Anemia, normocytic #GLENDY #C/f acute bleed #Thrombocytopenia, improved - Hgb has been slowly downtrending since admission (12.5) - Hgb 6.7 on AM labs 10/06, transfused 1 unit pRBCs - Iron panel shows low iron, TIBC, and saturation, suggestive of underlying GLENDY Plan: - Follow up FOBT - Will consult GI if positive #Mottling of bilateral knees, likely 2/2 cold temperatures with lower suspicion for true systemic circulatory compromise On physical exam, patient has had continuous mottling of the bilateral knees (for which a rapid response had been called on 10/05 for) but this is currently not concerning for possible hypoperfusion due to patient's hypertensive blood pressures, good O2 saturations, and overall clinical improvement Suspected to be secondary to cold temperatures rather than any type of systemic circulatory compromise leading to tissue hypoperfusion Rx: -Continue to monitor #Ecchymoses of sternum and left antecubital fossa Dx: -CXR showed no findings suggestive of rib fracture Rx: -Continue to monitor #Dysphagia Patient was noted to have failed nurse swallow evaluation on 10/02 Dx: -Modified barium swallow screen ordered, failed by patient on 10/03 Rx: -PEG tube in place and feedings based on dietitian recommendations -Speech therapy consulted -Registered dietitian consulted #Hypernatremia Patient was noted to have sodium 147->151 on 10/02, likely 2/2 dehydration from poor PO water intake Free water deficit of 1.4 10/03 sodium 151 despite D5W Rx: -500 cc free water flushes with tube feeds -Monitor sodium daily #Hyperglycemia #Insulin-dependent T2DM Home medications: Degludec 21 U BID and Aspart 4 U w/ meals 10/03 blood glucose noted to be elevated at 272, likely 2/2 D5W being administered for treatment of hypernatremia Dx: -09/25/25 HgbA1c ordered, showed 7.9 Rx: -Degludec 20 U QD -Insulin 3 U Q6HR -SSI w/ hypoglycemic protocol in place #Hypertension 09/24 admission BP 213/84 Continues to be high Home med includes metoprolol succinate 25 mg daily Rx: -Labetalol 10 mg IV PRN for SBP over 180 or DBP over 120 -Started metoprolol tartrate 12.5 mg BID #Constipation Patient complained of not having a bowel movement on 10/05 Rx: -Lactulose syrup #Diarrhea, resolved Patient endorses diarrhea since admission Patient not tolerating foods very well, states it goes through him anything he eats/drinks Restarted his pancreas enzymes Loose stools continued, but reported as better formed Rx: -Amylase/lipase/protease 1 cap PO QD -Consulted dietitian -Speech therapy consulted, placed NPO #CAD #HTN Patient reported to have had NSTEMI in the last 6 months. Chart review states stent placed BP 213/84 on admission, restarted home meds below Echo 09/25 EF 60-65% Rx: ?Atorvastatin 80 mg HS ?Held Plavix 75 mg daily in setting of bleed #Atrial fibrillation Home med of eliquis On 10/05, a rapid response was called for rapid heart with EKG showing irregular rhythm for which patient was given metoprolol tartrate 25 mg x 1 Dx: -10/05 CBC, CMP, troponin, lactic acid, and CXR ordered in reaction to rapid response, showed nothing of concern Rx: ? Held Eliquis 5 mg twice daily ? Metoprolol tartrate as above #Hyperbilirubinemia, improving #Transaminitis, resolved Patient TBili 2.4, AST 81 on admission No liver/gall bladder pathology history Liver US unremarkable #? BPH Moderate prostatomegaly found on CTAP ? Follow up outpatient with PCP #Osteopenia Patient found with advanced degenerative disc disease L4-S1 ? Follow up outpatient with PCP #Hypokalemia, resolved #hypophosphatemia, resolved ?Will continue to monitor and replete as necessary Hospital management: Disposition: Telemetry Fluids: D5W Diet: PEG tube feeds DVT prophylaxis: Eliquis 5 mg BID GI prophylaxis: Pantoprazole Crane: Placed CODE STATUS: Full Code Patient plan of care was discussed with the senior resident, Dr. Lowery, and the attending physician, Dr. Moreira. Dahiana Bustillo DO, PGY-1 Attending Provider Attestation/Addendum I have discussed and was present for the essential components of the history, physical examination, diagnosis, and treatment plan with the resident. I agree with the patient's care as documented by the resident and amended herein by me. Yefri Moreira DO. Although this document has been carefully reviewed, there may still be some phonetic and other typographical errors. These errors are purely grammatical due to imperfections in the software program and should not be construed in any way to compromise the substance of the patient's medical care during this visit.
--- NOTE | 2025-10-06 15:57 | PC.SS ---
Rounding note: Hemoglobin down trending, stool cultures pending. Discharging to SNF when medically clear.
[2025-10-06 17:05] LABS: Hematocrit 24.4 % (41.0-53.0)
[2025-10-06 17:26] LABS: Hemoglobin 7.7 g/dL (13.5-16.0)
[2025-10-06] MEDS: ATORVASTATIN CALCIUM 20 MG TABLET 80 MG PO (20:31)
[2025-10-07] VITALS (9 sets, daily range): BP systolic 109–170; BP diastolic 56–88; PULSE 82–111; RESP 18–24; TEMP 36.1–36.3; O2SAT 94–100
[2025-10-07] MEDS: ACETYLCYSTEINE RT SOL 10% 4 ML NEBU 3 ML INH ×3 (00:36→12:39)
[2025-10-07] MEDS: ALBUTEROL/IPRATROPIUM (Duoneb) RT SOL 3 ML NEBU INH ×3 (00:36→12:39)
[2025-10-07] MEDS: INSULIN LISPRO (AdmeLOG) 1 UNIT/0.01 ML UNIT SC ×3 (00:43→11:53)
[2025-10-07] MEDS: INSULIN LISPRO (AdmeLOG) 1 UNIT/0.01 ML UNIT 3 UNIT SC ×3 (00:44→11:53)
[2025-10-07] MEDS: guaiFENesin SYRUP 200 MG/10 ML UDC 100 MG PO ×2 (05:12→11:52)
[2025-10-07] MEDS: PIPER/TAZO 3.375 GM PREMIX 3.375 GM/50 ML BAG IV (05:12)
[2025-10-07 05:17] LABS: Basophils # (Auto) 0.0 Thou/mm3 (0.0-0.2); Basophils % (Auto) 0 % (0-2.5); Eosinophils # (Auto) 0.1 Thou/mm3 (0.0-0.5); Eosinophils % (Auto) 1 % (0-10); Hematocrit 26.1 % (41.0-53.0); Immature Granulocytes Auto 0.06 Thou/mm3 (0.00-0.00); Lymphocytes # (Auto) 0.6 Thou/mm3 (1.0-4.8); Lymphocytes % (Auto) 7 % (10-50); Mean Corpuscular HGB Conc 30.7 g/dl (31.0-37.0); Mean Corpuscular Hemoglobin 27.3 pg (25.0-35.0); Mean Corpuscular Volume 89 fL (80-100); Monocytes # (Auto) 0.5 Thou/mm3 (0.0-0.8); Monocytes % (Auto) 6 % (0-12); Neutrophils # (Auto) 7.5 Thou/mm3 (1.8-7.7); Neutrophils % (Auto) 86 % (37-80); Nucleated Red Blood Cell # 0.00 Thou/mm3 (0.00-0.00); Nucleated Red Blood Cell % 0 /100 WBC (0); Platelet Count 208 Thou/mm3 (140-440); RDW Standard Deviation 46.9 fL (35.1-43.9); Red Blood Count 2.93 Miln/mm3 (4.50-5.90); White Blood Count 8.7 Thou/mm3 (3.8-10.6)
[2025-10-07 05:24] LABS: Hemoglobin 8.0 g/dL (13.5-16.0)
[2025-10-07 06:04] LABS: Alanine Aminotransferase 18 U/L (10-49); Albumin, Serum 3.4 gm/dL (3.4-4.8); Albumin/Globulin Ratio 1.1 (1.2-2.2); Alkaline Phosphatase 79 U/L (46-116); Anion Gap 9 (7-16); Aspartate Amino Transferase 35 U/L (0-34); BUN/Creatinine Ratio 20 Ratio (12-20); Bilirubin,Total 2.2 mg/dL (0.3-1.2); Blood Urea Nitrogen 18 mg/dL (9-23); Calcium 8.9 mg/dL (8.3-10.6); Calcium (Corrected) 9.4 mg/dL (8.5-10.1); Carbon Dioxide 32.5 mMol/L (20.0-31.0); Chloride 105 mMol/L (98-107); Creatinine (Component) 0.9 mg/dL (0.6-1.3); Estimated Creatinine Clearance 83.8 mL/min (>60); Globulin 3.0 gm/dL (2.3-3.5); Glucose 179 mg/dL (74-106); Magnesium 2.4 mg/dL (1.6-2.6); Osmolality,Calculated 296 (275-295); Phosphorous 3.3 mg/dL (2.4-5.1); Potassium 4.1 mMol/L (3.4-5.1); Sodium 146 mMol/L (136-145); Total Protein 6.4 gm/dL (5.7-8.2); eGFR > 60 See Note
[2025-10-07 06:22] LABS: OBS Card Lot # 0124; OBS Developer Lot # 551749; OBS QC OK? Yes; Occult Blood, Stool Negative (Negative)
[2025-10-07] MEDS: MULTIVITAMIN 15 ML UDC GT (08:22)
[2025-10-07] MEDS: NAPH,KPH MBDB 1 PACKET (1.5 GM) PO (08:22)
[2025-10-07] MEDS: METOPROLOL TARTRATE 25 MG TABLET 12.5 MG PO (08:22)
[2025-10-07] MEDS: HYDROcodone/APAP 5/325 TABLET 1 TAB GT (08:22)
[2025-10-07] MEDS: THIAMINE INJ 100 MG/ML VIAL 2 ML IVP (08:22)
[2025-10-07] MEDS: ASCORBIC ACID 250 MG TABLET 500 MG PO (08:22)
[2025-10-07] MEDS: AMYLASE/LIPASE/PROTEASE CAPSULE (Pancreaze) 1 CAP PO (08:23)
[2025-10-07] MEDS: ZINC SULFATE 220 MG CAPSULE GT (08:23)
[2025-10-07] MEDS: INSULIN DEGLUDEC 5 UNIT/0.05 ML (PER 5 UNITS) 20 UNIT SC (08:32)
[2025-10-07 09:20] LABS: Vancomycin,Trough 9.7 mcg/mL (5.0-10.0)
[2025-10-07] MEDS: VANCOMYCIN/WATER 1250 MG IVPB 250 ML 120 MG IV (12:02)
--- NOTE | 2025-10-07 12:02 | PC.SS ---
Addendum entered by Lisandra Richards 10/07/25 12:34: Pt accepted back to [facility], transport to be set up via [facility] Original Note: SS was informed pt is clear for D, SS reached out to Emmy Anderson, who stated pt was DC from their facility due to 7 day bed hold and a new referral will need to be submitted. SS sent inquiry via [employer], pending response and bed availability
--- NOTE | 2025-10-07 12:59 | ESDS_ITS ---
<Statement entered by Kiran Lowery MD - 10/07/25 16:01> Patient was seen and examined at bedside. I agree in the assessment and plan on this note. - Patient's plan and care discussed with my attending, Dr. Lillie Lowery MD Internal Medicine PGY-3 Planned Discharge Date 10/07/25 DS: Providers Provider Date of admission: 09/24/25 13:20 Primary care physician: Ally Oreilly MD ([facility]) Admitting Provider: Patricio Servin MD Attending Provider on Admission: Regina Martinez DO Consults: 09/26/25 09:53 Referral Registered Dietitian Routine Comment: 09/26/25 16:26 Referral Wound Care Routine Comment: 09/29/25 10:01 Referral Speech Therapy Routine Comment: 10/03/25 11:41 Consult to Gastroenterology Routine Comment: PEG tube (consent obtained) Consulting Provider: Bj Shirley 10/03/25 19:00 Referral Registered Dietitian Routine Comment: PT MAY START FEEDING VIA PEG TUBE Attending Provider on DC: Jeff Moreira DO Discharging Provider: Jeff Moreira DO DS: Diagnosis Problem List Completed Was Problem List Reviewed/Reconciled?: Yes Hospital Course Hospital Course Hospital course: Patient is a 77-year-old male with past medical history of (per nurse at [facility]) CAD, A-fib, hypertension, CKD, type 2 diabetes, dysphagia, depression, anxiety who is brought in by ambulance to the ED at [facility] from [facility] for fever and hypoxia. Patient was noted to be gurgling on inspiration and was ANO x 0 with diarrhea the previous day. Patient was admitted for sepsis pneumonia with ct abdomen pelvis showing significant bibasilar pneumonia, chest xray not remarkable initially. Patient was placed on HFNC and continued to need it for about 9 days before being able to tolerate nasal cannula. Patient was initially hypertensive to 200s systollically in the ED, was given hydralazine one time and was started on metoprolol inpatient, which also covered his hypertension well throughout the hospital course. Patient was started on IV antibiotics. Patient's orientation improved during the hospitalization which was likely due to the pneumonia. Patient was noted to be on hospice at [facility]. During hospitalization patient was not tolerating oral intake failed Swallow evaluation videofluoroscopy of barium swallow was positive. Patient needed to have a PEG tube placed because of this.Patient's pneumonia has largely improved, but still remains and will be given antibiotics outpatient now that he is stable enough for discharge from the hospital. Patient came in with mildly elevated to laura bilirubin, ultrasound of liver was done that was unremarkable. Patient's QTc on EKG was persistently elevated to 530s, avoided qt prolonging medications. Patient's eliquis was held due to concern for bleeding with hgb drop to 6.7 that improved and resolved after transfusion of one unit prbc. Discharge Instructions - We are sending you with antibiotic, augmentin. Take 1 table 2x per day for 6 days ? Continue taking all other home medications as prescribed ? Follow-up with PCP within 1-2 weeks of discharge to further address your parkinson's disease ? If you do not have a PCP, you can follow-up at the [facility] (you can call [phone] to make an appointment) ? Return to ED if symptoms worsen or recur #Sepsis #Acute hypoxic respiratory failure #Aspiration pneumonia #Dysphagia #Anemia, normocytic #GLENDY #Thrombocytopenia #Mottling of bilateral knees #Hypernatremia #Hyperglycemia #Insulin-dependent T2DM #Hypertension #Constipation #Diarrhea #CAD #HTN #Atrial fibrillation #QTc prolongation #Hyperbilirubinemia #Transaminitis #? BPH #Osteopenia #Hypokalemia #hypophosphatemia Patient plan of care was discussed with the attending physician, Dr. Moreira & senior resident Dr. Beverley Jang MD PGY-1 Time Spent with Patient Time attestation: Total time spent providing and/or coordinating discharge services: Time spent: Greater than 30 minutes Exam Vital Signs Temp Pulse Resp BP Pulse Ox O2 Del Method O2 Flow Rate 97 F 98 20 143/68 H 100 Nasal Cannula 1 10/07/25 12:00 10/07/25 12:41 10/07/25 12:41 10/07/25 12:00 10/07/25 12:41 10/07/25 12:00 10/07/25 12:41 FiO2 40 10/05/25 16:00 Narrative Exam General: No acute distress; A&Ox3; resting in bed Skin: Ecchymoses noted at sternum and left antecubital fossa. Warm, dry, intact, no obvious rash. HENT: NCAT, EOMI/PERRL, not icteric. External ears normal. No rhinorrhea. Dry mucous membranes Cardiovascular: Regular rate and rhythm, no murmur, +S1/S2. Respiratory: Mild coarse lung sounds bilaterally, nasal cannula GI: PEG tube in place. Soft, nontender, non-distended. No guarding or rebound tenderness. : No suprapubic tenderness. No flank tenderness bilaterally. Crane in place Extremities: Mottling of bilateral knees. Trace pitting edema, no cyanosis, no clubbing. Extremity pulses present Neuro: Grossly nonfocal. Moving all 4 extremities. CN not formally tested but appear grossly intact. Psychiatric: appropriate affect, cooperative Discharge Plan Plan Patient Disposition: Xfer Skilled Nsg Fac (SNF) Patient condition on transfer: Stable Care Plan Goals: - We are sending you with antibiotic, augmentin. Take 1 table 2x per day for 6 days ? Continue taking all other home medications as prescribed ? Follow-up with PCP within 1-2 weeks of discharge ? If you do not have a PCP, you can follow-up at the [facility] (you can call [phone] to make an appointment) ? Return to ED if symptoms worsen or recur WOUND CARE: PREVENTION OF SKIN BREAK DOWN TO COCCYX, RIGHT AND LEFT HIP, RIGHT AND LEFT HEEL PLACE ALLYVEN DRESSING, ASSESS UNDER SKIN QS, RENTERIA Q3D/PRN/SOILD/DISLODGEMENT. LEFT HEEL UNSTAGEALBE: BETADINE SWAB AND COVER WITH ALLYVEN DRESSING BID AND PRN FOR FALLING OFF. RIGHT HEEL BLANCHABLE AND COCCYX DTI-CLEANSE WOUNDS WITH WOUND CLEANSER, PAT DRY, APPLY NON STING SKIN BARRIER. COVER WOUNDS WITH ALLEVYN DRESSING, MAKING SURE THAT ALL EDGES OD DRESSING ARE IN CONTACT WITH SKIN. TO BE CHANGED BID AND PRN SOILED/DISLODGMENT. BRUISE TO MEDIAL BACK: KEEP CLEAN AND DRY AND CRISTINA Prescriptions/Referrals Prescriptions/Med Rec: New amoxicillin-pot clavulanate 875-125 mg tablet 1 tab PO BID 6 Days Qty: 12 0RF Continued aripiprazole 10 mg tablet 10 mg PO HS baclofen 10 mg tablet 10 mg PO Q8H PRN (Reason: muscle spasm) atorvastatin 80 mg tablet 80 mg PO DAILY Rx Instructions: 80 mg orally; metoprolol succinate 100 mg tablet extended release 24 hr 25 mg PO DAILY insulin aspart U-100 [Novolog FlexPen U-100 Insulin] 100 unit/mL (3 mL) insulin pen 1 sliding scale dose SUBCUT ACHS Rx Instructions: sliding scale: 71-150 = 0 units, 151-200 = 2 units, 201-250 = 4 units, 251- 300 = 6 units, 301-350 = 8 units, <400 = 10 units, >401 = 12 units and call ranolazine 500 mg tablet extended release 12 hr 500 mg PO BID Rx Instructions: give 1 tablet by mouth two time a day for angina sertraline 150 mg capsule 150 mg PO Q24H Rx Instructions: Give 1 capsule by mouth one time a day for depression pregabalin 150 mg capsule 150 mg PO BID Rx Instructions: give 1 capsule by mouth two times a day for neuropathy pantoprazole 40 mg tablet,delayed release (DR/EC) 40 mg PO .Q24 Rx Instructions: Give 1 tablet by mouth one each day for GERD metoprolol succinate 25 mg tablet extended release 24 hr 25 mg PO DAILY Patient Comments: Give 1 tablet by mouth one time a day for hypertension hydrocodone-acetaminophen 10-325 mg tablet 1 tab PO BID PRN (Reason: pain) Rx Instructions: Give 1 tablet by mouth every 12 hours as needed for chronic pain acetaminophen 650 mg suppository 650 mg MA Q4H PRN (Reason: fever) atorvastatin [Lipitor] 80 mg tablet 80 mg PO QPM Creon 24,000-76,000 -120,000 unit capsule,delayed release(DR/EC) 1 cap PO QDAY ketorolac 0.5 % drops 1 drp ophthalmic (eye) QID 14 Days Qty: 10 1RF Naphcon-A 0.025-0.3 % drops 1 drp ophthalmic (eye) QID PRN (Reason: eye irritation) Qty: 15 0RF Held Eliquis 5 mg tablet 5 mg PO Q12H Hold Instructions: Resume on 10/14/25. To be resumed by PCP if Hb level is normal clopidogrel 75 mg tablet 75 mg PO DAILY Hold Instructions: Resume on 10/14/25. Discontinued alprazolam 1 mg tablet 1 mg PO BID Rx Instructions: Give 1 tablet by mouth two times a day for anxiety Referrals: Denilson([facility])Ally MD [Primary Care Provider, Internal Medicine] Patient/Caregiver Discharge Instructions Education Materials: Treating Pneumonia, Sepsis, Understanding Sepsis Print Language: Croatian Stand Alone Forms: Omayra Award Info., Patient Portal Info Letter Discharge Order Discharge Orders: Discharge (Routine); Ordered 10/07/25 Ordered By: Kiran Lowery Quality Discharge Quality Measures VTE prophylaxis MD Attestestation MD Attestation I have discussed and was present for the essential components of the discharge history, physical examination, diagnosis, and discharge treatment plan with the resident. I agree with the patient's discharge care as documented by the resident and amended herein by me. Yefri Moreira DO. The patient understood all discharge instructions, all questions were answered satisfactorily. The patient was instructed to return to the Emergency Department is symptoms worsened or persisted. Although this document has been carefully reviewed, there may still be some phonetic and other typographical errors. These errors are purely grammatical due to imperfections in the software program and should not be construed in any way to compromise the substance of the patient's medical care during this visit.
--- NOTE | 2025-10-07 13:23 | PC.SS ---
SS attempted to utilize [facility] for transport to , per rep pt does not have gurney coverage and their insurance eligibility is closed over the weekend. Therefore [facility] with [facility] will be utilized as pt is on 2L of O2. SS set up transport with [facility] ETA set for 1430
--- NOTE | 2025-10-07 14:00 | PC.NURSE ---
CALLED [facility], REPORT GIVEN TO ADELAIDA, STAFF NURSE.
--- NOTE | 2025-10-07 14:53 | ESPR_ITS ---
Documentation for date of: 10/07/25 Subjective Subjective Interval history: PEG site checked No drainage Exam Vital Signs Temp Pulse Resp BP Pulse Ox O2 Del Method O2 Flow Rate 97 F 100 24 H 143/68 H 100 Nasal Cannula 2 10/07/25 14:41 10/07/25 14:41 10/07/25 14:41 10/07/25 14:41 10/07/25 14:41 10/07/25 14:41 10/07/25 14:41 FiO2 40 10/05/25 16:00 Objective Labs 10/07/25 04:56 10/07/25 04:56 Labs: Laboratory Results - last 24 hr 10/06/25 10/07/25 10/07/25 16:37 04:00 04:56 WBC 8.7 RBC 2.93 L Hgb 7.7 L 8.0 L Hct 24.4 L 26.1 L MCV 89 MCH 27.3 MCHC 30.7 L RDW Std Deviation 46.9 H Plt Count 208 Neut % (Auto) 86 H Lymph % (Auto) 7 L Steuben % (Auto) 6 Eos % (Auto) 1 Baso % (Auto) 0 Neut # (Auto) 7.5 Lymph # (Auto) 0.6 L [place] # (Auto) 0.5 Eos # (Auto) 0.1 Baso # (Auto) 0.0 Immature Gran # (Auto) 0.06 H Absolute Nucleated RBC 0.00 Immature Gran % 1 H Nucleated RBC % 0 Sodium 146 H Potassium 4.1 Chloride 105 Carbon Dioxide 32.5 H Anion Gap 9 BUN 18 Creatinine 0.9 Estim Creat Clear Calc 83.8 eGFR > 60 BUN/Creatinine Ratio 20 Glucose 179 H Calculated Osmolality 296 H Calcium 8.9 Corrected Calcium 9.4 Phosphorus 3.3 Magnesium 2.4 Total Bilirubin 2.2 H AST 35 H ALT 18 Alkaline Phosphatase 79 Total Protein 6.4 Albumin 3.4 Globulin 3.0 Albumin/Globulin Ratio 1.1 L Stool Occult Blood Negative Vancomycin Trough 10/07/25 08:27 WBC RBC Hgb Hct MCV MCH MCHC RDW Std Deviation Plt Count Neut % (Auto) Lymph % (Auto) Ste[place] % (Auto) Eos % (Auto) Baso % (Auto) Neut # (Auto) Lymph # (Auto) Ste[place] # (Auto) Eos # (Auto) Baso # (Auto) Immature Gran # (Auto) Absolute Nucleated RBC Immature Gran % Nucleated RBC % Sodium Potassium Chloride Carbon Dioxide Anion Gap BUN Creatinine Estim Creat Clear Calc eGFR BUN/Creatinine Ratio Glucose Calculated Osmolality Calcium Corrected Calcium Phosphorus Magnesium Total Bilirubin AST ALT Alkaline Phosphatase Total Protein Albumin Globulin Albumin/Globulin Ratio Stool Occult Blood Vancomycin Trough 9.7 Impressions Impression: Failure to thrive Status postplacement of a PEG tube Enteral hyperalimentation to continue ABG Interpretation ABG results: 09/24/25 09/29/25 09/29/25 23:16 05:29 09:44 ABG pH 7.40 7.48 H 7.52 H ABG pCO2 45 43 39 ABG pO2 66 L 361 H 75 L D ABG HCO3 28 H 32 H 32 H ABG O2 Saturation 94 101 H 97 ABG Base Excess 3 8 H 8 H VBG pH VBG pCO2 VBG pO2 VBG Base Excess 10/01/25 10/03/25 10/03/25 10:53 10:51 21:48 ABG pH 7.40 D 7.46 H ABG pCO2 53 H D 52 H ABG pO2 117 H D 71 L D ABG HCO3 33 H 36 H ABG O2 Saturation 99 H 95 ABG Base Excess 7 H 11 H VBG pH 7.50 VBG pCO2 43 VBG pO2 97 H VBG Base Excess 9 H Assessment & Plan A&P Narrative # Failure to thrive # Dysphagia # Failed swallow evaluation Plan Consent obtained for PEG tube placement under MAC N.p.o. Other medical problems include Acute hypoxic respiratory failure Diabetes mellitus type 2 essential hypertension CKD stage III Diabetes mellitus type 2 Dysphagia Thank you very much for the opportunity to participate in care of this patient Time Spent With Patient Time: Total time spent is greater than 50% in coordination of care (as documented) at patient's floor/unit and/or counseling patient:
--- NOTE | 2025-10-07 15:13 | PC.NURSE ---
CALLED [facility], REPORT GIVEN TO ADELAIDA, STAFF NURSE.
--- NOTE | 2025-10-09 15:26 | PC.SS ---
Chart accessed due to [facility] requesting new PASRR, PASRR initiated LVL 2 not needed due to categorical review. Pending closure to send to [facility]
== END 2025-10-07 14:37 | disposition skilled nursing facility (03) | DRG 871 ==
LOC: SERX 13:28 → SERHOLD 13:35 → S2SX 09-25 06:15 → S2NX 09-25 13:22
PROVIDERS: Specialist; Student in an Organized Health Care Education/Training Program; Admitting Provider Student in an Organized Health Care Education/Training Program; Emergency Provider Emergency Medicine; PCP Hospitalist; Visit Provider Internal Medicine
PROC: 0DH63UZ Insertion of Feeding Device into Stomach, Percutaneous Approach (ICD-10-PCS; CPT 43246; principal; 2025-10-03 17:30)
DX: A41.9 Sepsis, unspecified organism (principal); J18.9 Pneumonia, unspecified organism; J96.01 Acute respiratory failure with hypoxia; I13.0 Hypertensive heart and chronic kidney disease with heart failure and stage 1 through stage 4 chronic kidney disease, or unspecified chronic kidney disease; G93.40 Encephalopathy, unspecified; E87.0 Hyperosmolality and hypernatremia; E87.1 Hypo-osmolality and hyponatremia; I25.10 Atherosclerotic heart disease of native coronary artery without angina pectoris; I48.91 Unspecified atrial fibrillation; Z79.01 Long term (current) use of anticoagulants; F32.A Depression, unspecified; F41.9 Anxiety disorder, unspecified; E87.6 Hypokalemia; E11.22 Type 2 diabetes mellitus with diabetic chronic kidney disease; G47.00 Insomnia, unspecified; M85.80 Other specified disorders of bone density and structure, unspecified site; D63.1 Anemia in chronic kidney disease; D69.6 Thrombocytopenia, unspecified; Z79.4 Long term (current) use of insulin; E11.65 Type 2 diabetes mellitus with hyperglycemia; E83.39 Other disorders of phosphorus metabolism; G20.B1 Parkinson's disease with dyskinesia, without mention of fluctuations; I48.0 Paroxysmal atrial fibrillation; K59.00 Constipation, unspecified; N40.0 Benign prostatic hyperplasia without lower urinary tract symptoms; N18.30 Chronic kidney disease, stage 3 unspecified; R62.7 Adult failure to thrive; R13.12 Dysphagia, oropharyngeal phase; Z51.5 Encounter for palliative care; J32.2 Chronic ethmoidal sinusitis; M51.369 Other intervertebral disc degeneration, lumbar region without mention of lumbar back pain or lower extremity pain; R74.01 Elevation of levels of liver transaminase levels; Z79.02 Long term (current) use of antithrombotics/antiplatelets; Z79.899 Other long term (current) drug therapy; Z91.041 Radiographic dye allergy status; Z93.1 Gastrostomy status
CPT/HCPCS: 36415; 36600; 51702; 70450; 71045; 71250; 74176; 74230; 76705; 80053; 80061; 80202; 80307; 81001; 82270; 82803; 83036; 83540; 83550; 83605; 83690; 83735; 83880; 84100; 84145; 84439; 84443; 84484; 85014; 85018; 85025; 85610; 85730; 86331; 86635; 86850; 86900; 86901; 86923; 87040; 87081; 87086; 87449; 87502; 87634; 87635; 92526; 92610; 93005; 93225; 93306; 93970; 94640; 94664; 94667; 96361; 96365; 99285; A4314; A4649; A9270; J0131; J0456; J0696; J1171; J1200; J1650; J1815; J1920; J1938; J2470; J2543; J3375; J3411; J3475; J3480; J3490; J7030; J7042; J7050; J7060; J7070; J7120; J7999; P9016